=== PATIENT | female | born 1970 | race Caucasian/White ===

== ENCOUNTER → 2020-06-09 12:47 | Outpatient (CLI) | payer OTHER, SELFPAY ==
--- NOTE | ~2020-06-09 | MM_ITS ---
EXAMINATION: MM screening keshia BI w anisa HISTORY: Screening mammogram, family history of breast cancer in her mother. TECHNIQUE: Craniocaudal and mediolateral oblique 3-D tomosynthesis images were obtained and synthetic 2-D images were generated. CAD analysis was submitted and interpreted. COMPARISON: 04/11/2019, 11/09/2017, 10/24/2017, 07/18/2016 BREAST PARENCHYMAL COMPOSITION: There are scattered areas of fibroglandular density. FINDINGS: There is no evidence of suspicious mass, calcification, or architectural distortion to sugg est malignancy in either breast. There has been no suspicious interval change. IMPRESSION: 1. No mammographic evidence of malignancy. 2. Recommend routine screening mammography in one year. BI-RADS Category 1: Negative Reviewed, dictated and finalized at location A. S PULLER
== END ==
PROVIDERS: PCP Physician Assistant; Visit Provider Nurse Practitioner Obstetrics & Gynecology
DX: Z12.31 Encounter for screening mammogram for malignant neoplasm of breast (principal)
CPT/HCPCS: 77063; 77067

== ENCOUNTER → 2020-08-01 14:06 | Outpatient (REF) | payer OTHER, SELFPAY | LOC: ANHLAB 14:06 | PROVIDERS: PCP Physician Assistant; Visit Provider Nurse Practitioner | DX: D22.5 Melanocytic nevi of trunk (principal) | CPT/HCPCS: 88305 ==

== ENCOUNTER → 2021-01-29 13:20 | Outpatient (REF) | payer OTHER, SELFPAY | LOC: ANHLAB 13:20 | PROVIDERS: PCP Physician Assistant; Visit Provider Nurse Practitioner | DX: D49.2 Neoplasm of unspecified behavior of bone, soft tissue, and skin (principal) | CPT/HCPCS: 88305 ==

== ENCOUNTER → 2021-03-13 15:07 | Outpatient (REF) | payer OTHER, SELFPAY | LOC: ANHLAB 15:07 | PROVIDERS: PCP Physician Assistant; Visit Provider Nurse Practitioner | DX: D49.2 Neoplasm of unspecified behavior of bone, soft tissue, and skin (principal) | CPT/HCPCS: 88305 ==

== ENCOUNTER → 2021-07-31 15:08 | Outpatient (REF) | payer OTHER, SELFPAY | LOC: ANHLAB 15:08 | PROVIDERS: PCP Physician Assistant; Visit Provider Nurse Practitioner | DX: D49.2 Neoplasm of unspecified behavior of bone, soft tissue, and skin (principal) | CPT/HCPCS: 88305 ==

== ENCOUNTER → 2021-08-07 11:20 | Outpatient (REF) | payer OTHER, SELFPAY | LOC: ANHLAB 11:20 | PROVIDERS: PCP Physician Assistant; Visit Provider Nurse Practitioner | DX: D49.2 Neoplasm of unspecified behavior of bone, soft tissue, and skin (principal) | CPT/HCPCS: 88305 ==

== ENCOUNTER → 2021-10-02 11:34 | Outpatient (CLI) | payer OTHER, SELFPAY ==
--- NOTE | ~2021-10-02 | MM_ITS ---
EXAMINATION: MM screening keshia BI w anisa HISTORY: Screening mammogram TECHNIQUE: Craniocaudal and mediolateral oblique 3-D tomosynthesis images were obtained and synthetic 2-D images were generated. CAD analysis was submitted and interpreted. COMPARISON: 06/09/2020, 04/20/2019 bilateral screening mammogram examinations BREAST PARENCHYMAL COMPOSITION: There are scattered areas of fibroglandular density. FINDINGS: Biopsy marker is noted on each side. History of prior bilateral benign breast biopsies. Very occasional benign calcifications. There is no evidence of suspicious mass, calcification, or arc hitectural distortion to suggest malignancy in either breast. There has been no suspicious interval c hange. IMPRESSION: 1. No mammographic evidence of malignancy. 2. Recommend routine screening mammography in one year. BI-RADS Category 2: Benign finding(s). Reviewed, dictated and finalized at location A.
== END ==
PROVIDERS: Visit Provider Physician Assistant
DX: Z12.31 Encounter for screening mammogram for malignant neoplasm of breast (principal)
CPT/HCPCS: 77063; 77067

== ENCOUNTER → 2023-01-21 11:19 | Outpatient (CLI) | payer OTHER, SELFPAY ==
--- NOTE | ~2023-01-21 | MM_ITS ---
EXAMINATION: MM screening keshia BI w anisa HISTORY: Screening mammogram TECHNIQUE: Craniocaudal and mediolateral oblique 3-D tomosynthesis images were obtained and synthetic 2-D images were generated. CAD analysis was submitted and interpreted. COMPARISON: October 02, 2021, June 09, 2020, April 20, 2019 bilateral screening mammogram examina tions BREAST PARENCHYMAL COMPOSITION: FINDINGS: Right breast: There is a biopsy marker on the right; history of prior benign right breast biopsy. There is an approximately 6 mm upper outer quadrant right breast mass. Diagnostic right mammogram and right breast ultrasound examination are recommended. Left breast: There is a biopsy marker on the left; history of prior benign left breast biopsy. There is no evidence of suspicious mass, calcification, or architectural distortion to suggest malign alma rosa in the left breast. There has been no suspicious interval change. IMPRESSION: 1. Approximately 6 mm upper outer quadrant posterior right breast mass 2. Diagnostic right mammogram and right breast ultrasound examination are recommended. BI-RADS Category 0: Incomplete: Needs additional imaging evaluation. Reviewed, dictated and finalized at location A. IMPRESSION: 1. Approximately 6 mm upper outer quadrant posterior right breast mass 2. Diagnostic right mammogram and right breast ultrasound examination are recom mended. BI-RADS Category 0: Incomplete: Needs additional imaging evaluation.
== END ==
PROVIDERS: PCP Physician Assistant; Visit Provider Obstetrics & Gynecology
DX: Z12.31 Encounter for screening mammogram for malignant neoplasm of breast (principal); R92.8 Other abnormal and inconclusive findings on diagnostic imaging of breast
CPT/HCPCS: 77063; 77067

== ENCOUNTER 2023-01-29 12:53 | Outpatient (CLI) | payer OTHER, SELFPAY ==
--- NOTE | 2023-01-29 | ECHO_ITS ---
Patient Info Name: Maria A Fisher Age: 52 years : 1970 Gender: Female Ht: 63 in Wt: 165 lbs BSA: 1.85 m2 HR: 79 bpm BP: 109 / 87 mmHg Heart Rhythm: Sinus Rhythm Technical Quality: Good Exam Date: 01/29/2023 1:34 PM Exam Location: [facility] Patient Status: Outpatient Admit Date: 01/29/2023 Staff Ordering Physician: TamirLisa [employer] Supervisor: Rukhsana Padlila RDCS Attending Provider: TamirLisa Exam Type: CA echo doppler color flow Study Info Indications - TAChycardia Complete two-dimensional, color flow and Doppler transthoracic echocardiogram is performed. Summary 1. Complete two-dimensional, color flow and Doppler transthoracic echocardiogram is performed. 2. Left ventricular chamber dimension is normal. 3. Left ventricular systolic function is normal, estimated at 60-65%. 4. The left ventricular diastolic function is grade I diastolic dysfunction. 5. Right ventricular systolic function is normal. 6. Cannot rule out PFO based on color Doppler of interatrial septum. Consider bubble study if clinically indicated. 7. There is trace mitral valve regurgitation. 8. There is trace tricuspid valve regurgitation. Left Ventricle Left ventricular chamber dimension is normal. Left ventricular systolic function is normal, estimated at 60-65%. There is no increased left ventricular wall thickness. The left ventricular diastolic function is grade I diastolic dysfunction. Right Ventricle Right ventricular chamber dimension is normal. Right ventricular systolic function is normal. Left Atria Left atrial chamber dimension is normal. Right Atria Right atrial chamber dimension is normal. Atrial Septum Cannot rule out PFO based on color Doppler of interatrial septum. Consider bubble study if clinically indicated. Aortic Valve The aortic valve is trileaflet. There is no aortic valve stenosis. There is no aortic valve regurgitation. Pulmonic Valve The pulmonic valve is not well visualized. Mitral Valve There is trace mitral valve regurgitation. Tricuspid Valve There is trace tricuspid valve regurgitation. Pericardium/Pleural There is no pericardial effusion. Inferior Vena Cava Normal inferior vena cava with >50% collapse upon inspiration consistent with normal right atrial pressure, 3 mmHg. Aorta The aortic root size at the sinus of Valsalva is normal. Left Ventricular Outflow Tract Name Value Normal LVOT 2D LVOT Diameter 2.0 cm LVOT Doppler LVOT Peak Gradient 2 mmHg LVOT Mean Gradient 1 mmHg LVOT VTI 19 cm LVOT VTI/AV VTI Ratio 0.9 LVOT Stroke Volume 61 ml LVOT CO 3.2 l/min LVOT CI 1.7 l/min/m2 Pulmonic Valve Name Value Normal RVOT Doppler RVOT Peak Gradient 2 mmHg
== END 2023-01-29 12:54 | disposition home or self-care (01) ==
PROVIDERS: PCP Physician Assistant; Visit Provider Physician Assistant
DX: R00.0 Tachycardia, unspecified (principal)
CPT/HCPCS: 93306

== ENCOUNTER → 2023-02-11 08:44 | Outpatient (CLI) | payer OTHER, SELFPAY ==
--- NOTE | ~2023-02-11 | MMUS_ITS ---
EXAMINATION: MM diagnostic keshia RT w anisa, US breast RT limited HISTORY: Approximately 6 mm upper outer posterior right breast mass reported on 01/21/2023 screening ma mmogram TECHNIQUE: Additional 3-D tomosynthesis images of the right breast were performed and synthetic 2-D i mages were generated. CAD analysis was submitted and interpreted. High resolution upper outer and low er outer quadrant right breast ultrasound was performed. COMPARISON: 01/21/2023 bilateral screening mammogram FINDINGS: MAMMOGRAPHIC FINDINGS: Approximately 4 mm circumscribed opacity is suggested in the posterior upper outer left breast (MLO T omosynthesis image 36/87). No suspicious mass, architectural distortion, malignant calcification, skin thickening or retraction is detected. ULTRASOUND: There are several circumscribed hypoechoic or sonolucent areas, the largest situated at 10:00 9 cm fr om the nipple, measuring up to 4 mm, with through transmission posterior enhancement. No suspicious mass or shadowing of either breast is detected. IMPRESSION: 1. Benign findings 2. Routine annual mammographic screening is recommended BI-RADS Category 2: Benign finding(s). Reviewed, dictated and finalized at location A. IMPRESSION: 1. Benign findings 2. Routine annual mammographic screening is recommended BI-RADS Category 2: Benign finding(s).
== END ==
PROVIDERS: PCP Physician Assistant; Visit Provider Obstetrics & Gynecology
DX: R92.8 Other abnormal and inconclusive findings on diagnostic imaging of breast (principal)
CPT/HCPCS: 76642; 77061; 77065; G0279

== ENCOUNTER 2024-04-12 11:59 | Outpatient (CLI) | payer OTHER, SELFPAY ==
--- NOTE | ~2024-04-12 | XR_ITS ---
Left Shoulder Technique: AP and scapular Y views were obtained. Clinical History: Pain Findings: No fracture or dislocation is seen. Osseous alignment is anatomic. The glenohumeral and acr omioclavicular joint spaces are preserved. Soft tissues are unremarkable. Impression: Unremarkable left shoulder radiographs. Reviewed, dictated and finalized at [facility]. Impression: Unremarkable left shoulder radiographs.
== END 2024-04-12 12:00 | disposition home or self-care (01) ==
LOC: ANHIMG 12:02
PROVIDERS: PCP Physician Assistant; Visit Provider Physician Assistant
DX: M25.512 Pain in left shoulder (principal); G89.29 Other chronic pain
CPT/HCPCS: 73030

== ENCOUNTER 2024-04-29 07:32 | Outpatient (CLI) | payer OTHER, SELFPAY ==
--- NOTE | ~2024-04-29 | MM_ITS ---
EXAMINATION: MM screening keshia BI w anisa HISTORY: Screening TECHNIQUE: Craniocaudal and mediolateral oblique 3-D tomosynthesis images were obtained and synthetic 2-D images were generated. CAD analysis was submitted and interpreted. COMPARISON: Comparison to multiple prior studies sequentially, with oldest reviewed study dated 03/24. BREAST PARENCHYMAL COMPOSITION: Not dense: There are scattered areas of fibroglandular density. FINDINGS: There are developing asymmetries in the right breast. The left breast is stable without melisa dence for malignancy. IMPRESSION: 1. Developing right breast asymmetries. 2. Additional mammographic views and possible breast ultrasound are recommended. BI-RADS Category 0: Incomplete: Needs additional imaging evaluation. Reviewed, dictated and finalized at location B. KET PULLER IMPRESSION: 1. Developing right breast asymmetries. 2. Additional mammographic views and possible breast ultrasound are recommended . BI-RADS Category 0: Incomplete: Needs additional imaging evaluation.
== END 2024-04-29 07:33 | disposition home or self-care (01) ==
PROVIDERS: PCP Physician Assistant; Visit Provider Obstetrics & Gynecology
DX: Z12.31 Encounter for screening mammogram for malignant neoplasm of breast (principal); R92.8 Other abnormal and inconclusive findings on diagnostic imaging of breast
CPT/HCPCS: 77063; 77067

== ENCOUNTER 2024-05-18 13:24 | Outpatient (CLI) | payer OTHER, SELFPAY ==
--- NOTE | ~2024-05-18 | MMUS_ITS ---
EXAMINATION: MM diagnostic keshia RT w anisa, US breast RT complete HISTORY: Follow-up right breast mass TECHNIQUE: Additional 3-D tomosynthesis images of the right breast were performed and synthetic 2-D i mages were generated. CAD analysis was submitted and interpreted. High resolution complete right deric st ultrasound was performed. COMPARISON: Comparison to multiple prior studies sequentially, with oldest reviewed study dated 03/24. BREAST PARENCHYMAL COMPOSITION: Not dense: There are scattered areas of fibroglandular density. FINDINGS: MAMMOGRAPHIC FINDINGS: There is a small radiolucent mass in the upper outer quadrant of the right breast, middle third, like ly benign. There are no suspicious calcifications or architectural distortion. ULTRASOUND: Complete US of all 4 quadrants of the right breast/s and retroareolar region was reviewed. At 9:00, 5 cm from the nipple there is an intramammary lymph node measuring 1 cm. At 10:00, 7 cm from the nippl e there is an 8 mm intramammary lymph node. No suspicious masses to suggest malignancy. IMPRESSION: 1. No evidence for malignancy in the right breast. Benign findings. 2. Routine yearly screening mammogram and regular clinical breast examination are recommended. BI-RADS Category 2: Benign finding(s). Reviewed, dictated and finalized at location B. ER PACKER IMPRESSION: 1. No evidence for malignancy in the right breast. Benign findings. 2. Routine yearly screening mammogram and regular clinical breast examination a re recommended. BI-RADS Category 2: Benign finding(s).
== END 2024-05-18 13:25 | disposition home or self-care (01) ==
LOC: ANHIMG 13:25
PROVIDERS: PCP Physician Assistant; Visit Provider Obstetrics & Gynecology
DX: R92.8 Other abnormal and inconclusive findings on diagnostic imaging of breast (principal)
CPT/HCPCS: 76641; 77061; 77065; G0279

== ENCOUNTER 2024-09-07 10:24 | Outpatient (CLI) | payer OTHER, SELFPAY ==
[2024-09-07 11:02] LABS: Alanine Aminotransferase 32 U/L (6-35); Aspartate Amino Transferase 41 U/L (14-36)
--- OUTSIDE RECORDS SUMMARY | 2024-09-07 11:49 | XMS_ITS | Clinical Summary ---
Author Organization [facility] [address] [facility] Address [address] [place] [address] Care Team Providers Care Facility Designer Name Role Phone Lisa Trujillo Primary Care Provider [phone] Allergies No known active allergies Medications Zepbound 7.5 mg/0.5 mL pen injector Active nebivoloL (BYSTOLIC) 5 mg tablet Take 1 tablet (5 mg total) by mouth daily 90 tablet 3 5 Active lisdexamfetamin e (VYVANSE) 20 mg capsule Take 1 capsule (20 mg total) by mouth every morning 30 capsule 5 Active nebivoloL (BYSTOLIC) 5 mg tablet Take 1 tablet (5 mg total) by mouth daily 90 tablet 6 4 09/01/19 25 Discontinu ed(Reorder ) lisdexamfetamin e (VYVANSE) 20 mg capsule Take 1 capsule (20 mg total) by mouth every morning 30 capsule 5 08/13/19 25 Discontinu ed(Reorder ) lisdexamfetamin e (VYVANSE) 20 mg capsule Take 1 capsule (20 mg total) by mouth every morning 30 capsule 5 09/01/19 25 Discontinu ed(Reorder ) Active Problems Problem Noted Date Diagnosed Date BMI 24.0-24.9, adult 08/31/2024 Assessment & Plan (08/31/2024 9:37 AM CDT): Weight/BMI is in healthy range. Continue healthy lifestyle to maintain. Has done great with weight loss. Continue Zepbound per her weight loss provider Chronic left shoulder pain 04/09/2024 Assessment & Plan (04/11/2024 4:44 PM CDT): This is a significant, separately identifiable problem that was evaluated and managed on the same day as the wellness exam Persistent left shoulder pain for the last 7 months. No known injury. Initially felt like maybe she slept on it wrong but continues to feel like she is losing range of motion pain is significant with internal and external rotation. Will obtain an x-ray. Encouraged physical therapy. Encouraged NSAID as tolerated. Follow-up pending physical therapy results Breast cancer screening by mammogram 04/09/2024 Assessment & Plan (04/11/2024 4:44 PM CDT): Mammogram order provided Diastolic dysfunction 02/01/2023 Assessment & Plan (02/01/2023 10:04 PM CDT): This is a significant, separately identifiable problem that was evaluated and managed on the same day as the wellness exam New finding on echo. Patient has had tachycardia. She is responded nicely to Bystolic but still recommend referral to Cardiology for further evaluation based on her age. Referral to [facility] in [place]. Tachycardia 11/05/2022 Assessment & Plan (08/31/2024 9:36 AM CDT): Well-controlled with the Bystolic 5. Refills sent to pharmacy Assessment & Plan (06/03/2023 11:59 AM GENERATING PLANT SUPERINTENDENT): Patient saw Dr. Norris. According to his report no changes were made for treatment plan. She is to continue with the Bystolic 5. Follow-up with him in approximately 6 months. Assessment & Plan (02/01/2023 9:59 PM CDT): Patient has responded well with the Bystolic 5 mg. Heart rate is running in the 80s. Patient physically feels the difference is sleeping better happy with the results. Continue. Encouraged to limit caffeine. Assessment & Plan (12/17/2022 3:09 PM CDT): Patient with tachycardia. Echo will be ordered. Will await results. She feels significantly better on the beta-rajeev which shows control the tachycardia has been helpful. Blood pressure has been stable dropping between 100 110 at home. She denies any headaches dizziness or syncopal type symptoms. Continue with the Bystolic 5 mg daily. Continue to monitor closely. Stressed if she has any chest pain shortness a breath syncopal episode she is immediately go to the ER. Assessment & Plan (12/17/2022 2:59 PM CDT): Patient experiencing tachycardia. Has been present for years. EKG in the office was stable on 11/05. Not experiencing any active chest pain shortness a breath or other symptoms. Trying to avoid caffeine and other stimulants. Vyvanse was stopped so another other medication stimulants on board. NonStimulant Strattera was also discontinued due to nausea. Will check an echo. Start Bystolic 5 mg 1 daily to see if we can get the pulse down without dropping blood pressure too much. Will remain off all ADD medications and follow-up in 2-3 weeks. Encouraged readings at home and bring them in with her to next visit. If she would have any chest pain shortness a breath she is go to the ER. She is in agreement with the plan Assessment & Plan (11/05/2022 8:51 PM CDT): Patient is tachycardic today encouraged her to decrease caffeine. Her thyroid is normal. EKG today was essentially normal other than the tachycardia. Discussed the Vyvanse and contribution to tachycardia as a stimulant. Discussed the underlying possibility that this is more of an anxiety. Discussed referral to Cardiology if desires. She would like to monitor see how it goes if she has any more chest pain shortness a breath with activity or increased symptoms she is to immediately call and or go to the ER. Follow up in a month to reassess. Mixed hyperlipidemia 11/05/2022 Assessment & Plan (04/11/2024 4:43 PM CDT): Encouraged patient to follow low fat/low chol diet like the Mediterranean diet. Increase good fats in the diet. Increase exercise. Monitor labs as needed. Assessment & Plan (11/23/2023 12:45 AM CDT): Encouraged patient to follow low fat/low chol diet like the Mediterranean diet. Increase good fats in the diet. Increase exercise. Monitor labs as needed. Assessment & Plan (02/01/2023 9:58 PM CDT): Encouraged patient to follow low fat/low chol diet like the Mediterranean diet. Increase good fats in the diet. Increase exercise. Monitor labs as needed. Assessment & Plan (11/05/2022 8:51 PM CDT): Encouraged patient to follow low fat/low chol diet like the Mediterranean diet. Increase good fats in the diet. Increase exercise. Monitor labs as needed. Vitamin D deficiency 11/05/2022 Assessment & Plan (11/05/2022 8:52 PM CDT): supplement Colon cancer screening 12/18/2021 Assessment & Plan (08/31/2024 9:36 AM CDT): Due for repeat Cologuard this summer. Order placed Assessment & Plan (03/30/2024 9:13 AM CDT): Weight/BMI is in healthy range. Continue healthy lifestyle to maintain. Assessment & Plan (12/18/2021 8:01 PM CDT): Cologuard order placed. Mucous polyp of cervix 07/21/2019 Attention deficit disorder (ADD) without hyperac tivity 01/02/2019 Assessment & Plan (08/31/2024 9:36 AM CDT): Continue Vyvanse 20. Symptoms are pretty well controlled with the least exposure to stimulant due to her tachycardia Assessment & Plan (04/11/2024 4:43 PM CDT): Continue with the Vyvanse 20 mg as symptoms are stable Assessment & Plan (11/23/2023 12:44 AM CDT): Stable with Vyvanse 20. Refills to pharmacy Assessment & Plan (06/03/2023 11:59 AM GENERATING PLANT SUPERINTENDENT): ADD has been well controlled with the Vyvanse 20 mg. She states it is not quite as good as the 30 but understands keeping it at the lowest possible dose so will continue with it. Refills sent to pharmacy Assessment & Plan (02/01/2023 9:58 PM CDT): Patient is happy with the Vyvanse 20 mg. States significant improvement from the Strattera. Still felt a little better on the higher dose but agreed to hold the dose until evaluated by Cardiology. Assessment & Plan (12/17/2022 3:10 PM CDT): Being off ADD medication patient has noticed forgetfulness as well as difficulty focusing. She is not as productive at work. She notes in retrospect the Strattera probably was helping with ADD symptoms but the nausea was too much. She is frustrated with out being on medication and would like to restart Vyvanse. Reviewed risks benefits alternatives side effects and proper use. Reviewed if she would note increased chest pain if her heart rate was to increase she is to stop the Vyvanse immediately. Will await echo results and if there is any concerns will refer to Cardiology. She is in agreement with the plan Assessment & Plan (12/17/2022 3:00 PM CDT): Patient has ADD. Symptom lynch has done great on Vyvanse 30 but was experiencing some chest pressure as well as tachycardia. Have discontinued this stimulant as well as nonstimulant Strattera. Will start Bystolic and follow-up in 4 weeks to reassess. Assessment & Plan (11/05/2022 8:50 PM CDT): Patient's ADD has been very well controlled in the Vyvanse 30 mg. She has been on it literally for years. She comes in tachycardic today. Do not have a great reason for it but has been on a stimulant. Discussed making a transition to Strattera as a non stimulant ADD medication. Reviewed risks benefits alternatives side effects and proper use. Reviewed it may feel different than the Vyvanse but can still have great results. She is hesitant but willing to try. 80 mg capsules sent. Follow-up in about 4 weeks and reassess at that time. Assessment & Plan (10/01/2022 11:23 PM CDT): Stable with Vyvanse 30. Refills to pharmacy Assessment & Plan (05/24/2022 9:22 PM GENERATING PLANT SUPERINTENDENT): Patient's symptoms are well controlled with Vyvanse 30. Refills available at pharmacy. Encouraged follow-up about every 4 months. Assessment & Plan (12/18/2021 8:00 PM CDT): Stable with Vyvanse 30. Continue to follow-up every 4 months for and may call for refills in between those visits. Assessment & Plan (04/08/2021 8:24 PM CDT): Patient has been doing well on the Vyvanse 30 and Lexapro 20.. The side effects from the medicine but she is happy with where she is right now so at this point will discontinue to monitor symptoms increase may consider rechecking blood work and or making a change in her medications. Assessment & Plan (01/07/2021 6:45 PM CDT): Stable. Continue Vyvanse 30 mg. Assessment & Plan (12/10/2020 7:25 PM CDT): Continue Vyvanse 30mg Assessment & Plan (06/04/2020 12:28 AM GENERATING PLANT SUPERINTENDENT): Stable with lexapro and vyvanse. Refills to pharmacy Assessment & Plan (02/20/2020 8:16 PM CDT): Continue Vyvanse Assessment & Plan (08/26/2019 9:38 AM GENERATING PLANT SUPERINTENDENT): Stable with the Vyvanse 30mg Just filled. Call for refills as needed Assessment & Plan (07/22/2019 8:50 AM GENERATING PLANT SUPERINTENDENT): This is a significant, separately identifiable problem that was evaluated and managed on the same day as the wellness exam Continue with the Vyvanse 30mg daily. Encouarged daily Lexapro and will reassess in 4-6 weeks. Assessment & Plan (06/10/2019 9:04 AM GENERATING PLANT SUPERINTENDENT): Stable with the Vyvanse 30mg. See if Lexapro addition stabilizes more SCC (squamous cell carcinoma) 01/02/2019 Overview (06/10/2019): LE removed 2018 Multiple excisions. Follows q [address] Miranda Resolved Problems Problem Noted Date Diagnosed Date Resolved Date Annual physical exam 04/09/2024 025 Assessment & Plan (04/11/2024 4:43 PM CDT): Encouraged healthy lifestyle, good nutrition and exercise. Encouraged Calcium and Vitamin D and weight bearing exercise for bone health. Reviewed immunizations Reviewed age appropirate screenings. Diabetes mellitus screening 11/23/2023 04/11/2024 Assessment & Plan (11/23/2023 12:45 AM CDT): Check labs BMI 28.0-28.9,adult 06/03/2023 11/20/19 24 Assessment & Plan (06/03/2023 9:14 AM GENERATING PLANT SUPERINTENDENT): Weight/BMI is in healthy range. Continue healthy lifestyle to maintain. Annual physical exam 02/01/2023 023 Assessment & Plan (02/01/2023 10:06 PM CDT): Encouraged healthy lifestyle, good nutrition and exercise. Encouraged Calcium and Vitamin D and weight bearing exercise for bone health. Reviewed immunizations Reviewed age appropirate screenings. Obesity (BMI 30-39.9) 01/30/20232022 Assessment & Plan (01/30/2023 3:04 PM CDT): Discussed the patient's BMI. The BMI is above average. BMI management plan is completed. BMI Follow-up includes: nutrition counseling, exercise counseling and education provided. BMI 31.0-31.9,adult 01/30/2023 06/03/20 Assessment & Plan (01/30/2023 3:03 PM CDT): Discussed the patient's BMI. The BMI is above average. BMI management plan is completed. BMI Follow-up includes: nutrition counseling, exercise counseling and education provided. Obesity (BMI 30-39.9) 12/17/20222022 Assessment & Plan (12/17/2022 1:07 PM CDT): Discussed the patient's BMI. The BMI is above average. BMI management plan is completed. BMI Follow-up includes: nutrition counseling, exercise counseling and education provided. BMI 30.0-30.9,adult 12/17/2022 12/18/19 Assessment & Plan (12/17/2022 1:07 PM CDT): Discussed the patient's BMI. The BMI is above average. BMI management plan is completed. BMI Follow-up includes: nutrition counseling, exercise counseling and education provided. Obesity (BMI 30.0-34.9) 12/17/202201/21 Assessment & Plan (12/17/2022 2:59 PM CDT): Discussed the patient's BMI. The BMI is above average. BMI management plan is completed. BMI Follow-up includes: nutrition counseling, exercise counseling and education provided. BMI 30.0-30.9,adult 12/17/2022 01/31/20 Assessment & Plan (12/17/2022 3:06 PM CDT): Discussed the patient's BMI. The BMI is above average. BMI management plan is completed. BMI Follow-up includes: nutrition counseling, exercise counseling and education provided. Assessment & Plan (12/17/2022 2:59 PM CDT): Discussed the patient's BMI. The BMI is above average. BMI management plan is completed. BMI Follow-up includes: nutrition counseling, exercise counseling and education provided. Obesity (BMI 30-39.9) 12/03/20222022 Assessment & Plan (12/03/2022 11:40 AM CDT): Discussed the patient's BMI. The BMI is above average. BMI management plan is completed. BMI Follow-up includes: nutrition counseling, exercise counseling and education provided. BMI 30.0-30.9,adult 12/03/2022 12/18/19 Assessment & Plan (12/03/2022 11:40 AM CDT): Discussed the patient's BMI. The BMI is above average. BMI management plan is completed. BMI Follow-up includes: nutrition counseling, exercise counseling and education provided. Obesity (BMI 30-39.9) 11/05/20222022 Assessment & Plan (11/05/2022 8:50 PM CDT): Discussed the patient's BMI. The BMI is above average. BMI management plan is completed. BMI Follow-up includes: nutrition counseling, exercise counseling and education provided. Continue with her weight loss programming with utilizing my fitness pal watching calories protein and continuing activity. BMI 31.0-31.9,adult 11/05/2022 12/04/19 Assessment & Plan (11/05/2022 8:16 AM CDT): Discussed the patient's BMI. The BMI is above average. BMI management plan is completed. BMI Follow-up includes: nutrition counseling, exercise counseling and education provided. Obesity (BMI 30-39.9) 10/01/20222022 Assessment & Plan (10/01/2022 1:19 PM CDT): Discussed the patient's BMI. The BMI is above average. BMI management plan is completed. BMI Follow-up includes: nutrition counseling, exercise counseling and education provided. BMI 31.0-31.9,adult 10/01/2022 11/06/19 23 Assessment & Plan (10/01/2022 11:25 PM CDT): Discussed the patient's BMI. The BMI is above average. BMI management plan is completed. BMI Follow-up includes: nutrition counseling, exercise counseling and education provided. Discussed weight management issues for approximately 15 minutes. Encouraged to log all food/drink/intake to determine daily caloric intake. Reviewed 3500 calories = 1# of weight so have to register a deficit to lose. Discussed obtaining this by decreasing daily caloric intake and or increasing exercise. Discussed decreasing carbs. Maintaining enough protein. Monitor/be aware of serving size. Increase water. Avoid sugar sweetened drinks. Discussed Wegovy including risks benefits alternatives side effects and proper use. Obesity (BMI 30-39.9) 05/23/20222022 Assessment & Plan (05/23/2022 2:59 PM GENERATING PLANT SUPERINTENDENT): Obesity is unchanged. Discussed the patient's BMI. The BMI is above average. BMI management plan is completed. BMI Follow-up includes: nutrition counseling, exercise counseling and education provided. BMI 31.0-31.9,adult 05/23/2022 10/02/19 23 Assessment & Plan (05/23/2022 3:00 PM GENERATING PLANT SUPERINTENDENT): Obesity is unchanged. Discussed the patient's BMI. The BMI is above average. BMI management plan is completed. BMI Follow-up includes: nutrition counseling, exercise counseling and education provided. Annual physical exam 12/18/2021 023 Assessment & Plan (12/18/2021 8:00 PM CDT): Encouraged healthy lifestyle, good nutrition and exercise. Encouraged Calcium and Vitamin D and weight bearing exercise for bone health. Reviewed immunizations Reviewed age appropirate screenings. Obesity (BMI 30-39.9) 12/18/20212021 Assessment & Plan (12/18/2021 10:57 AM CDT): Obesity is unchanged. Discussed the patient's BMI. The BMI is above average. BMI management plan is completed. BMI Follow-up includes: nutrition counseling, exercise counseling and education provided. BMI 30.0-30.9,adult 12/18/2021 05/23/20 Assessment & Plan (12/18/2021 10:57 AM CDT): Obesity is unchanged. Discussed the patient's BMI. The BMI is above average. BMI management plan is completed. BMI Follow-up includes: nutrition counseling, exercise counseling and education provided. Diabetes mellitus screening 12/18/2021 02/01/2023 Assessment & Plan (10/01/2022 11:24 PM CDT): Check labs Assessment & Plan (12/18/2021 8:01 PM CDT): Check labs. Lipid screening 12/18/2021 11/05/2022 Assessment & Plan (10/01/2022 11:24 PM CDT): Check labs Assessment & Plan (12/18/2021 8:01 PM CDT): Check labs Fever 06/29/2021 04/11/2024 Assessment & Plan (06/29/2021 8:53 PM GENERATING PLANT SUPERINTENDENT): Patient to presume positive COVID/FLU until results are available and plan to self isolate for up to 10 days from the onset of sxs. Check COVID/FLU test thru [facility] collection site in [place]. If positive COVID, complete 10 day quarantine and consider monoclonal antibodies based on risk factors. If positive FLU, complete 5 day quarantine and be fever free for 24 hours without meds and may consider antiviral based on timing and risk factors. If negative, treat sxs and observe. Treat sxs with Tylenol, Cough/cold medication otc and add VitD 5,000IU daily and Zinc 50mg daily. Monitor sxs and call or go to the ER if has any of the following: --trouble breathing --persistent pain or pressure in the chest --new confusion --inability to wake or stay awake -- bluish lips or face If patient has been in close contact with anyone, they should be notified and instructed to quarantine per CDC guidelines for 14 days after last exposure to the positive COVID patient and monitor closely for symptoms of COVID. If they appear they should be tested. Close contact includes: --You were within 6 feet of someone who has COVID-19 for a total of 15 minutes or more --You provided care at home to someone who is sick with COVID-19 --You had direct physical contact with the person (hugged or kissed them) --You shared eating or drinking utensils --They sneezed, coughed, or somehow got respiratory droplets on you Additional Steps to avoid exposure/spread include: Avoid crowded places where close contact with others may occur, such as shopping centers, movie theaters, dormitories, or stadiums. Avoid transit where close contact with others may occur, such as planes, trains, and buses. Maintain a distance of approximately 6 feet from other people whenever possible (spacing out if you are in a line, leaving 2 seats in between others at a waiting room when possible). Wash your hands with soap and water often. If needed, use a hand ror engineer that contains at least 60% alcohol. Clean and disinfect frequently touched surfaces such as tables, doorknobs, countertops, etc daily. Avoid touching your eyes, nose, and mouth when possible. Onychomycosis 04/08/2021 04/11/2024 Assessment & Plan (04/08/2021 8:30 PM CDT): Patient has thickened nails that looks most consistent with onychomycosis. Discussed referral to learning support services director for toes nail sample she declines at this point. Discussed treatment options including Lamisil versus his topicals versus monitoring. Reviewed that there is no guarantee any bees will work and help the result is a very slow process. She is interested in the [facility] topical solution. She is to apply it daily and may take up to a year to see any changes. She voices understanding. BMI 28.0-28.9,adult 04/03/2021 12/19/19 Assessment & Plan (04/03/2021 4:11 PM CDT): Weight/BMI is in healthy range. Continue healthy lifestyle to maintain. BMI 28.0-28.9,adult 01/02/2021 04/03/20 Assessment & Plan (01/02/2021 3:34 PM CDT): Weight/BMI is in healthy range. Continue healthy lifestyle to maintain. Annual physical exam 12/10/2020 021 Assessment & Plan (12/10/2020 7:26 PM CDT): Encouraged healthy lifestyle, good nutrition and exercise. Encouraged Calcium and Vitamin D and weight bearing exercise for bone health. Reviewed immunizations Reviewed age appropirate screenings. Lipid screening 12/10/2020 01/07/2021 Assessment & Plan (12/10/2020 7:27 PM CDT): Encouraged patient to follow fat/low chol diet like the Mediterranean diet. Increase good fats in the diet. Increase exercise. Monitor labs as needed. Diabetes mellitus screening 12/10/2020 01/07/2021 Assessment & Plan (12/10/2020 7:27 PM CDT): Check labs Fatigue 12/10/2020 04/11/2024 Assessment & Plan (11/23/2023 12:44 AM CDT): Probably multifactorial. Check labs and followup to re-evaluate Assessment & Plan (10/01/2022 11:24 PM CDT): Probably multifactorial. Check labs and followup to re-evaluate Assessment & Plan (12/18/2021 8:00 PM CDT): Probably multifactorial. Check labs and followup to re-evaluate Assessment & Plan (04/08/2021 8:24 PM CDT): Probably multifactorial. Check labs and followup to re-evaluate She does had labs done so discussed rechecking them versus being patient and wait an had we have decided to just going to monitor and see how she does. Encourage good sleep habits. Assessment & Plan (12/10/2020 7:27 PM CDT): Probably multifactorial. Check labs and followup to re-evaluate BMI 29.0-29.9,adult 11/27/2020 01/03/20 Assessment & Plan (12/10/2020 7:26 PM CDT): Weight/BMI is in healthy range. Continue healthy lifestyle to maintain. BMI 28.0-28.9,adult 05/29/2020 11/28/19 21 Assessment & Plan (06/04/2020 12:28 AM GENERATING PLANT SUPERINTENDENT): Weight/BMI is in healthy range. Continue healthy lifestyle to maintain. BMI 26.0-26.9,adult 01/10/2020 05/29/20 Assessment & Plan (01/10/2020 4:33 PM CDT): Continue healthy lifestyle to continue healthy weight BMI 25.0-25.9,adult 08/26/2019 09/01/19 25 Assessment & Plan (04/11/2024 4:43 PM CDT): Weight/BMI is in healthy range. Continue healthy lifestyle to maintain. Assessment & Plan (08/26/2019 8:30 AM GENERATING PLANT SUPERINTENDENT): Weight/BMI is in healthy range. Continue healthy lifestyle to maintain. Annual physical exam 07/22/2019 020 Assessment & Plan (07/22/2019 8:49 AM GENERATING PLANT SUPERINTENDENT): Encouraged healthy lifestyle, good nutrition and exercise. Encouraged Calcium and Vitamin D and weight bearing exercise for bone health. Reviewed immunizations Reviewed age appropirate screenings. Oth abn and inconclusive fin dings on dx imaging of breast 07/21/2019 12/18/2021 BMI 26.0-26.9,adult 06/10/2019 03/30/20 24 Assessment & Plan (11/20/2023 9:08 AM CDT): Weight/BMI is in healthy range. Continue healthy lifestyle to maintain. Assessment & Plan (07/22/2019 8:50 AM GENERATING PLANT SUPERINTENDENT): Weight/BMI is in healthy range. Continue healthy lifestyle to maintain. Assessment & Plan (06/10/2019 8:31 AM GENERATING PLANT SUPERINTENDENT): Weight/BMI is in healthy range. Continue healthy lifestyle to maintain. Anxiety 06/10/2019 12/17/2022 Assessment & Plan (12/18/2021 8:00 PM CDT): Patient states her anxiety has settled down and she cold turkey. The Lexapro with minimal side effects. Will go ahead and monitor but if her symptoms increase may need to start a low-dose of the Lexapro back up. She is in agreement with the plan Assessment & Plan (04/08/2021 8:24 PM CDT): See ADD Assessment & Plan (01/07/2021 6:44 PM CDT): Stable. Continue Lexapro 20 mg. Assessment & Plan (12/10/2020 7:25 PM CDT): This is a significant, separately identifiable problem that was evaluated and managed on the same day as the wellness exam On Vyvanse 30 and Lexapro 10. Increased anxiety. Feeling overwhelmed. Increase lexapro to 20mg and f.u in 4 weeks. Assessment & Plan (06/04/2020 12:28 AM GENERATING PLANT SUPERINTENDENT): Stable with lexapro and vyvanse. Refills to pharmacy Assessment & Plan (02/20/2020 8:16 PM CDT): Continue Lexapro Assessment & Plan (08/26/2019 9:38 AM GENERATING PLANT SUPERINTENDENT): Improved with the addition of the LExapro. Continue the same dose. Refills to pharmacy Assessment & Plan (07/22/2019 8:49 AM GENERATING PLANT SUPERINTENDENT): This is a significant, separately identifiable problem that was evaluated and managed on the same day as the wellness exam Take Lexapro hs and try to do consistently for 4-6 weeks/until followup. Will reassess at that time. Assessment & Plan (06/10/2019 9:04 AM GENERATING PLANT SUPERINTENDENT): Discussed options including starting SSRI. Reviewed risks, benefit, alternatives, side effects and proper use. Start lexapro 10mg one daily. F.u 6 weeks to reassess Other fatigue 06/10/2019 12/18/2021 Assessment & Plan (06/10/2019 9:05 AM GENERATING PLANT SUPERINTENDENT): Probably multifactorial. Check labs and followup to re-evaluate Will see if he trends toward hypoglycemia with her A1c. 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); Tachycardia; Colon cancer screening; BMI 24.0-24.9, adult from Last 3 Months Immunizations Immunization Administration Dates Next Due Influenza LAIV (Nasal) 06/03/2023(Deferred: Michelle ent Refused) Influenza, Unspecified 06/03/2023(Deferr ed: Patient Refused),07/24/2022(Deferred: Patient Refused),07/24/2021(Deferred: Patient Refused),07/24/2021(Deferred: Patient Refused),05/23/2020(Deferred: Patient Refused),07/22/2019(Deferred: Patient Refused),07/22/2019(Deferred: Patient Refused),03/23/2018(Deferred: Patient Refused) Moderna SARS-CoV-2 Monovalen t Vaccination (12+ YRS) 11/02/2020,10/05/2020 Surgical History Surgery Date Site/Laterality Comments EYE SURGERY Medical History Medical History Date Comments ADHD (attention deficit hyperactivity disorder) Family History Medical History Relation Name Comments Diabetes Father Cancer Maternal Grandfather Cancer Maternal Grandmother Breast cancer Mother Hypertension Mother Skin cancer Mother Arthritis Paternal Grandfather Breast cancer Paternal Grandmother Relation Name Status Comments Father Maternal Grandfather Maternal Grandmother Mother Alive Paternal Grandfather Paternal Grandmother Social History Tobacco Use Types Packs/Day Years Used Date Smoking Tobacco: Never Smokeless Tobacco: Never Tobacco Cessation:Counseling Given: Not Answered Alcohol Use Standard Drinks/Week Comments Never 0 (1 standard drink = 0.6 oz pur e alcohol) AUDIT-C Answer Date Recorded Q1: How often do you have a drink containing alcohol? Never 08/31/2024 Q2: How many drinks containi ng alcohol do you have on a typical day when you are drinking? 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 file Not on file Not on file Obstetrics History Last Filed Vital Signs Vital Sign Reading Time Taken Comments Blood Pressure 118/72 08/31/2024 8:59 AM CDT Pulse 93 08/31/2024 8:59 AM CDT Temperature 36.3 C (97.4 F) 08/31/2024 8:59 AM CDT Respiratory Rate 16 11/20/2023 9:04 AM CDT Oxygen Saturation 98% 08/31/2024 8:59 AM CDT Inhaled Oxygen Concentration - - Weight 62.6 kg (138 lb) 08/31/2024 8:59 AM CDT Height 160 cm (5' 3 ) 08/31/2024 8:59 AM CDT Body Mass Index 24.45 08/31/2024 8:59 AM CDT Plan of Treatment Health Maintenance Due Date Last Done Comments Cervical Cancer Screening 1972 Hepatitis C Screening 1972 DTaP/Tdap/Td Vaccine (1 - Tdap) 08/22/1983 Hepatitis B Screening 1990 Zoster Vaccine (1 of 2) 2022 Covid-19 Vaccine (3 - season) 2024 11/02/2020, 10/05/2020 Influenza Vaccine (#1) 2024 Postp oned from 02/22/2024 (Patient declined, but will receive in the future) Colon Cancer Screening-DNA Stool 01/13/2025 01/13/2022 Regular Well Visit/Exam 18-64 03/30/2025 03/30/2024, 01/30/2023, 12/18/2021, Additional history exists Breast Cancer Screening-Mammogram 05/19/2025 05/19/2024, 04/29/2024, 04/29/2024, Additional history exists Depression Screening 08/31/2025 08/31/2024, 03/30/2024, 11/20/2023, Additional history exists Pneumococcal vaccine <65 Aged Out No longer eligible based on patient's age to complete this topic Procedures Procedure Name Priority Date/Time Associated Diagnosis Comments SCREENING MAMMOGRAM BILATERAL W LELO Schedule Routine, Read Routine (OP Routine) 05/19/2024 10:16 AM GENERATING PLANT SUPERINTENDENT Breast cancer screening by mammogram STOOL DNA COLOGUARD Routine 01/13/2022 10:30 AM CDT Colon cancer screening from Last 3 Months or Most Recently Relevant to Health Maintenance Results * Screening Mammogram Bilateral W Lelo (05/19/2024 10:16 AM GENERATING PLANT SUPERINTENDENT) Anatomical Region Laterality Modality Breast Bilateral Mammography Lisa READ IM MAMMO PROCEDURES Final Result * Stool DNA - Cologuard (01/13/2022 10:30 AM CDT) Stool DNA - Cologuard Negative Negative [employer] (CLIA #:[id number]) Comment: NEGATIVE TEST RESULT. A negative Cologuard result indicates a low likelihood that a colorectal cancer (CRC) or advanced adenoma (adenomatous polyps with more advanced pre-malignant features) is present. The chance that a person with a negative Cologuard test has a colorectal cancer is less than 1 in 1500 (negative predictive value >99.9%) or has an advanced adenoma is less than 5.3% (negative predictive value 94.7%). These data are based on a prospective cross-sectional study of 10,000 individuals at average risk for colorectal cancer who were screened with both Cologuard and colonoscopy. (Meli Petit al, N Engl J Med 2014;370(14):5697-5991) The normal value (reference range) for this assay is negative. COLOGUARD RE-SCREENING RECOMMENDATION: Periodic colorectal cancer screening is an important part of preventive healthcare for asymptomatic individuals at average risk for colorectal cancer. Following a negative Cologuard result, the [place] Cancer Society and U.S. Multi-Society Task Force screening guidelines recommend a Cologuard re-screening interval of 3 years. References: [place] [employer] Guideline for Colorectal Cancer Screening: https://www.cancer.org/cancer/fcrhd-jtxxsd-hrvmtr/zlxlpzuqo-hyxiksoqm-rrdpelv/ac s-rec ommendations.html.; Riccardo DK, Jennifer CR, Neal AmbrizK, Colorectal Cancer Screening: Recommendations for Physicians and Patients from the U.S. Multi-Society Task Force on Colorectal Cancer Screening , Am J Gastroenterology 2017; 112:8415-9468. TEST DESCRIPTION: Composite algorithmic analysis of stool DNA-biomarkers with hemoglobin immunoassay. Quantitative values of individual biomarkers are not reportable and are not associated with individual biomarker result reference ranges. Cologuard is intended for colorectal cancer screening of adults of either sex, 45 years or older, who are at average-risk for colorectal cancer (CRC). Cologuard has been approved for use by the U.S. FDA. The performance of Cologuard was established in a cross sectional study of average-risk adults aged 50-84. Cologuard performance in patients ages 45 to 49 years was estimated by sub-group analysis of near-age groups. Colonoscopies performed for a positive result may find as the most clinically significant lesion: colorectal cancer [4.0%], advanced adenoma (including sessile serrated polyps greater than or equal to 1cm diameter) [20%] or non- advanced adenoma [31%]; or no colorectal neoplasia [45%]. These estimates are derived from a prospective cross-sectional screening study of 10,000 individuals at average risk for colorectal cancer who were screened with both Cologuard and colonoscopy. (Meli Petit al, N Engl J Med 2014;370(14):1004-2934.) Cologuard may produce a false negative or false positive result (no colorectal cancer or precancerous polyp present at colonoscopy follow up). A negative Cologuard test result does not guarantee the absence of CRC or advanced adenoma (pre-cancer). The current Cologuard screening interval is every 3 years. ([place] Cancer Society and U.S. Multi-Society Task Force). Cologuard performance data in a 10,000 patient pivotal study using colonoscopy as the reference method can be accessed at the following location: www.[employer].com/results. Additional description of the Cologuard test process, warnings and precautions can be found at www.cologuard.com. Stool 01/13/2022 10:3 0 AM CDT 01/15/2022 7:09 PM CDT Lisa READ LAB BODY FLUIDS AND STOOLS ORDERABLES Final Result [email or web address] (CLIA #:[id number]) [place] [address] from Last 3 Months or Most Recently Relevant to Health Maintenance Insurance [facility] [id number] [facility] [id number] Care Teams Facility Designer Relationship Specialty Start Date End Date Lisa Trujillo PA [address] [facility] [address] [place] [address] PCP - General Internal Medicine 11/10/18
--- OUTSIDE RECORDS SUMMARY | 2024-09-07 11:49 | XMS_ITS | Encounter Summary ---
Author Organization [facility] Care Team Providers Care Appraiser [employer]ats [employer] Name Role Phone Lisa Trujillo Primary Care Provider [phone]- [phone] Encounter Details Date Type Department Care Team (Latest Contact Info) Description 06/01/2018 Orders Only [facility] Provider, MD Jacob [address] [place] [id number] Social History Tobacco Use Types Packs/Day Years Used Date Smoking Tobacco: Never Assessed Comments Unknown Sex and Gender Information Value Date Recorded Sex Assigned at Not on file Legal Sex Female 11:48 AM TECHNOLOGY ENGINEER Gender Identity Not on file Sexual Orientation Not on file documented as of this encounter Plan of Treatment Not on file documented as of this encounter Procedures Procedure Name Priority Date/Time Associated Diagnosis Comments SCAN - PATHOLOGY 06/03/2018 12:0 0 AM TECHNOLOGY ENGINEER documented in this encounter Results * SCAN - PATHOLOGY (06/03/2018 12:00 AM TECHNOLOGY ENGINEER) Narrative 06/03/2018 12:00 AM TECHNOLOGY ENGINEER Ordered by an unspecified provider. Historical Provider Final Res ult documented in this encounter Visit Diagnoses Not on filedocumented in this encounter Additional Health Concerns Infection Onset Date Last Indicated Resolved Time COVID: Suspected 06/29/2021 06/29/2021 06/30/2021 7:45 AM TECHNOLOGY ENGINEER COVID19 06/29/2021 06/29/2021 07/09/2021 3:06 AM TECHNOLOGY ENGINEER COVID: Recovered Comment:Added based on recent COVID infection. 07/09/2021 07/11/202111/06/2021 3:05 AM C DT documented as of this encounter Care Teams Appraiser [employer] Marine Relationship Specialty Start Date End Date Lisa Trujillo PA [address] [address] PCP - General Internal Medicine 11/10/18 documented as of this encounter
--- OUTSIDE RECORDS SUMMARY | 2024-09-07 11:49 | XMS_ITS | Referral Summary ---
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 Referral to [facility] Cardiology in [place]. Tachycardia 11/05/2022 Assessment & Plan (08/31/2024 9:36 AM CDT): Well-controlled with the Eulalioolic 5. Refills sent to pharmacy Assessment & Plan (06/03/2023 11:59 AM LICENSED MIDWIFE): Patient saw Dr. Norris. According to his [...] pharmacy Assessment & Plan (06/03/2023 11:59 AM LICENSED MIDWIFE): ADD has been well controlled with the [...] 3:00 PM CDT): Patient has ADD. Symptom ylnch has done great on Vyvanse 30 but [...] pharmacy Assessment & Plan (05/24/2022 9:22 PM LICENSED MIDWIFE): Patient's symptoms are well controlled with Vyvanse [...] 30mg Assessment & Plan (06/04/2020 12:28 AM LICENSED MIDWIFE): Stable with lexapro and vyvanse. Refills to pharmacy Assessment & Plan (02/20/2020 8:16 PM CDT): Continue Vyvanse Assessment & Plan (08/26/2019 9:38 AM LICENSED MIDWIFE): Stable with the Vyvanse 30mg Just filled. Call for refills as needed Assessment & Plan (07/22/2019 8:50 AM LICENSED MIDWIFE): This is a significant, separately identifiable problem that was evaluated and managed on the same day as the wellness exam Continue with the Vyvanse 30mg daily. Encouarged daily Lexapro and will reassess in 4-6 weeks. Assessment & Plan (06/10/2019 9:04 AM LICENSED MIDWIFE): Stable with the Vyvanse 30mg. See if [...] 24 Assessment & Plan (06/03/2023 9:14 AM LICENSED MIDWIFE): Weight/BMI is in healthy range. Continue healthy [...] 05/23/20222022 Assessment & Plan (05/23/2022 2:59 PM LICENSED MIDWIFE): Obesity is unchanged. Discussed the patient's BMI. The BMI is above average. BMI management plan is completed. BMI Follow-up includes: nutrition counseling, exercise counseling and education provided. BMI 31.0-31.9,adult 05/23/2022 10/02/19 23 Assessment & Plan (05/23/2022 3:00 PM LICENSED MIDWIFE): Obesity is unchanged. Discussed the patient's BMI. [...] 04/11/2024 Assessment & Plan (06/29/2021 8:53 PM LICENSED MIDWIFE): Patient to presume positive COVID/FLU until results are available and plan to self isolate for up to 10 days from the onset of sxs. Check COVID/FLU test thru [facility] collection site in [place]. If positive COVID, complete 10 day quarantine [...] water often. If needed, use a hand nozzle worker that contains at least 60% alcohol. Clean and disinfect frequently touched surfaces such as tables, doorknobs, countertops, etc daily. Avoid touching your eyes, nose, and mouth when possible. Onychomycosis 04/08/2021 04/11/2024 Assessment & Plan (04/08/2021 8:30 PM CDT): Patient has thickened nails that looks most consistent with onychomycosis. Discussed referral to banquet set up person for toes nail sample she declines at this point. Discussed treatment options including Lamisil versus his topicals versus monitoring. Reviewed that there is no guarantee any bees will work and help the result is a very slow process. She is interested in the Penla topical solution. She is to apply it daily and may take up to a year to see any changes. She voices understanding. BMI 28.0-28.9,adult 04/03/2021 12/19/19 22 Assessment & Plan (04/03/2021 4:11 PM CDT): Weight/BMI is in healthy range. Continue healthy lifestyle to maintain. BMI 28.0-28.9,adult 01/02/2021 04/03/20 21 Assessment & Plan (01/02/2021 3:34 PM CDT): [...] followup to re-evaluate BMI 29.0-29.9,adult 11/27/2020 01/03/20 21 Assessment & Plan (12/10/2020 7:26 PM CDT): Weight/BMI is in healthy range. Continue healthy lifestyle to maintain. BMI 28.0-28.9,adult 05/29/2020 11/28/19 21 Assessment & Plan (06/04/2020 12:28 AM LICENSED MIDWIFE): Weight/BMI is in healthy range. Continue healthy lifestyle to maintain. BMI 26.0-26.9,adult 01/10/2020 05/29/20 20 Assessment & Plan (01/10/2020 4:33 PM CDT): Continue healthy lifestyle to continue healthy weight BMI 25.0-25.9,adult 08/26/2019 09/01/19 25 Assessment & Plan (04/11/2024 4:43 PM CDT): Weight/BMI is in healthy range. Continue healthy lifestyle to maintain. Assessment & Plan (08/26/2019 8:30 AM LICENSED MIDWIFE): Weight/BMI is in healthy range. Continue healthy lifestyle to maintain. Annual physical exam 07/22/2019 020 Assessment & Plan (07/22/2019 8:49 AM LICENSED MIDWIFE): Encouraged healthy lifestyle, good nutrition and exercise. [...] maintain. Assessment & Plan (07/22/2019 8:50 AM LICENSED MIDWIFE): Weight/BMI is in healthy range. Continue healthy lifestyle to maintain. Assessment & Plan (06/10/2019 8:31 AM LICENSED MIDWIFE): Weight/BMI is in healthy range. Continue healthy [...] weeks. Assessment & Plan (06/04/2020 12:28 AM LICENSED MIDWIFE): Stable with lexapro and vyvanse. Refills to pharmacy Assessment & Plan (02/20/2020 8:16 PM CDT): Continue Lexapro Assessment & Plan (08/26/2019 9:38 AM LICENSED MIDWIFE): Improved with the addition of the LExapro. Continue the same dose. Refills to pharmacy Assessment & Plan (07/22/2019 8:49 AM LICENSED MIDWIFE): This is a significant, separately identifiable problem that was evaluated and managed on the same day as the wellness exam Take Lexapro hs and try to do consistently for 4-6 weeks/until followup. Will reassess at that time. Assessment & Plan (06/10/2019 9:04 AM LICENSED MIDWIFE): Discussed options including starting SSRI. Reviewed risks, benefit, alternatives, side effects and proper use. Start lexapro 10mg one daily. F.u 6 weeks to reassess Other fatigue 06/10/2019 12/18/2021 Assessment & Plan (06/10/2019 9:05 AM LICENSED MIDWIFE): Probably multifactorial. Check labs and followup to re-evaluate Will see if he trends toward hypoglycemia with her A1c. Immunizations Immunization Administration Dates Next Due Influenza LAIV (Nasal) 06/03/2023(Deferred: Michelle ent Refused) Influenza, Unspecified 06/03/2023(Deferr ed: Patient Refused),07/24/2022(Deferred: Patient Refused),07/24/2021(Deferred: Patient Refused),07/24/2021(Deferred: Patient Refused),05/23/2020(Deferred: Patient Refused),07/22/2019(Deferred: Patient Refused),07/22/2019(Deferred: Patient Refused),03/23/2018(Deferred: Patient Refused) Moderna SARS-CoV-2 Monovalen t Vaccination (12+ YRS) 11/02/2020,10/05/2020 Social History Tobacco Use Types Packs/Day Years [...] on file Legal Sex Female 11:48 AM LICENSED MIDWIFE Gender Identity Not on file Sexual Orientation Not on file 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 file Not on file Not on file Last Filed Vital Signs Vital Sign Reading [...] 08/31/2024 8:59 AM CDT Plan of Treatment Not on file Procedures Procedure Name Priority Date/Time Associated Diagnosis Comments SCREENING MAMMOGRAM BILATERAL W LELO Schedule Routine, Read Routine (OP Routine) 05/19/2024 10:16 AM LICENSED MIDWIFE Breast cancer screening by mammogram STOOL DNA COLOGUARD Routine 01/13/2022 10:30 AM CDT Colon cancer screening from Last 3 Months or Most Recently Relevant to Health Maintenance Results * Screening Mammogram Bilateral W Lelo (05/19/2024 10:16 AM LICENSED MIDWIFE) Anatomical Region Laterality Modality Breast Bilateral Mammography Lisa READ IMMickey MAMMO PROCEDURES Final Result * Stool DNA - Cologuard (01/13/2022 10:30 AM CDT) Stool DNA - Cologuard Negative Negative [employer] (CLIA #:[id number]) Comment: NEGATIVE TEST RESULT. A negative Cologuard [...] (Meli Petit al, N Engl J Med 2014;370(14):1453-3215) The normal value (reference range) for this assay is negative. COLOGUARD RE-SCREENING RECOMMENDATION: Periodic colorectal cancer screening is an important part of preventive healthcare for asymptomatic individuals at average risk for colorectal cancer. Following a negative Cologuard result, the [place] Cancer Society and U.S. Multi-Society Task Force screening guidelines recommend a Cologuard re-screening interval of 3 years. References: [place] [employer] Guideline for Colorectal Cancer Screening: https://www.cancer.org/cancer/vakzh-iteimw-eouant/uherwtbdw-rzgjjetvq-kfcvjdv/ac s-rec ommendations.html.; Riccardo DK, Jennifer KYLE, Neal AmbrizK, Colorectal Cancer Screening: Recommendations for Physicians and Patients from the U.S. Multi-Society Task Force on Colorectal Cancer Screening , Am J Gastroenterology 2017; 112:7254-2447. TEST DESCRIPTION: Composite algorithmic analysis of stool [...] (Meli Petit al, N Engl J Med 2014;370(14):3681-7972.) Cologuard may produce a false negative or false positive result (no colorectal cancer or precancerous polyp present at colonoscopy follow up). A negative Cologuard test result does not guarantee the absence of CRC or advanced adenoma (pre-cancer). The current Cologuard screening interval is every 3 years. ([place] Cancer Society and U.S. Multi-Society Task Force). Cologuard performance data in a 10,000 patient pivotal study using colonoscopy as the reference method can be accessed at the following location: www.[employer]/results. Additional description of the Cologuard test process, warnings and precautions can be found at www.cologuard.com. Stool 01/13/2022 10:3 0 AM CDT 01/15/2022 7:09 PM CDT Lisa READ LAB BODY FLUIDS AND STOOLS ORDERABLES Final Result [email or web address] (CLIA #:[id number]) [place] [address] from Last 3 Months or Most Recently Relevant to Health Maintenance Insurance [facility] [id number] [facility] [id number] Member Subscriber Plan / Payer (Ef fective 2020-Present) Name:Maria A Fisher Member ID:[id number] Relation to Subscriber:Self Name:Maria A Fisher Subscriber ID:[id number] Payer ID:[id number] Type:[employer] HMO/PPO Address: [address] [place] [id number] Care Teams Brim Stretcher Relationship Specialty Start Date End Date Lisa Trujillo PA [address] [facility] [address] [place] [address] PCP - General Internal Medicine 11/10/18
--- OUTSIDE RECORDS SUMMARY | 2024-09-07 11:49 | XMS_ITS | Data Portability ---
Author Organization [facility] Address [address] [place] [address] [place] [address] Care Team Providers Care Tobacco Classer Name Role Phone NATANAEL LONG Primary Care Provider Assessment Encounter Date Assessment Date Assessment LastModified by Organization Details LastModified Time 04/20/2024 04/20/2024 Annual gynecological exam performed. Patient will come back in a year unless there are new symptoms. [email or web address] Not available 04/01/2024 12:42:26 Plan of Treatment Reminders Order Date Submit Date Provider Last Modified By Organization Details Last Modified Time Details Appointments MED CHECK 2024 11:30A Celestino PRATHER MD Not available Not available Not available Lab None recorded. Referral None recorded. Procedures None recorded. Surgeries None recorded. Imaging MAMMO, screening , digital, bilateral 2023 024 [facility], [address], [place], [address], 04/27/2024 04:09:27 Medication Orders Zepbound 10 mg/0.5 mL subcutane ous pen injector 2024 025 [id number], [address], [place], [place], [id number], 07/29/2024 16:59:23 Zepbound 7.5 mg/0.5 mL subcutane ous pen injector 2023 024 [email or web address], [address], [place], [address], 04/07/2024 09:52:43 Wegovy 2.4 mg/0.75 mL subcutane ous pen injector 2023 024 [id number], [address], [place], [place], [id number], 04/07/2024 09:52:45 Patient TargetsNo targets recorded. Patient InstructionsNo instructions recorded. Reason for Referral None Reported. Results Created Date Observation Date Name Description Value Unit Range Abnormal Flag Note LastModifiedBy Organization Detail LastModifiedTime 04/29/20 24 04/29/2024 MAMMO , scree guillermo, bilat eral No observ ation record ed. [email or web address] [facility] [address], [place], [address], 05/04/2024 10:21:58 04/29/20 24 04/29/2024 MAMMO , scree guillermo, bilat eral No observ ation record ed. [email or web address] [facility] [address], [place], [address], 05/04/2024 10:22:22 05/18/20 24 05/18/2024 MAMMO , diagn ostic , digit al, unila teral No observ ation record ed. [facility] [address], [place], [address], 05/18/2024 21:45:40 Result Notes None recorded. Problems Name Problem SNOMED Code Status Onset Date Resolution Date Notes Provider Name and Address Organization Details Recorded Time Body mass index 25-29 - overweig [id number] Completed 201606/06/2021 Body mass index (BMI) 26.0-26.9 , adult;Rec orded Elsewhere : No Locati on: [facility] So urce: EHR Chron ic: N Practic e ID: 0001 Bill able Time: 01:00:00 PM Beverly Thayer [facility] [place] - [facility] 1 14:46:44 Screenin g for malignan t neoplasm of rectum Completed 201406/06/2021 Encounter for screening for malignant neoplasm of rectum;Re corded Elsewhere : No Locati on: [facility] So urce: EHR Chron ic: N Practic e ID: 0001 Bill able Time: 08:45:00 AM Beverly Thayer [facility] 1 14:46:58 Mucous polyp of cervix [id number] Completed 201306/06/2021 Cervical polyp;Rec orded Elsewhere : No Locati on: [facility] So urce: EHR Chron ic: N Practic e ID: 0001 Bill able Time: 03:00:00 PM Beverly Thayer [facility] 14:46:50 Menopaus e present [id number] Completed 201506/06/2021 Menopausa l and female climacter ic states;Re corded Elsewhere : No Locati on: [facility] So urce: EHR Chron ic: N Practic e ID: 0001 Bill able Time: 10:30:00 AM Beverly Thayer [facility] 14:46:[address] Concept Completed 201606/06/2021 Encntr for regional account executive exam (general) (routine) w/o abn findings; Recorded Elsewhere : No Locati on: [facility] So urce: EHR Chron ic: N Practic e ID: 0001 Bill able Time: 01:00:00 PM Beverly Thayer [facility] 1 14:47:01 Speciali amritad medical examinat ion Completed 201306/06/2021 Gynecolog ical Examinati on;Record ed Elsewhere : No Locati on: [facility] So urce: EHR Chron ic: N Practic e ID: 0001 Bill able Time: 01:45:00 PM Beverly Thayer [facility] [address] 14:47:[address] Concept Completed 201406/06/2021 Encntr for general adult medical exam w/o abnormal findings; Recorded Elsewhere : No Locati on: [facility] So urce: EHR Chron ic: N Practic e ID: 0001 Bill able Time: 08:45:00 AM Beverly Thayer [facility] 14:46:59 Radiolog ic finding [id number] Completed 201706/06/2021 Oth abn and inconclus pasquale findings on dx imaging of breast;Re corded Elsewhere : No Locati on: [facility] So urce: EHR Chron ic: N Practic e ID: 0001 Bill able Time: 11:01:39 AM [facility] Thayer [facility] 14:46:46 Polyp of cervix [id number] Completed 201406/06/2021 Mucous polyp of cervix;Re corded Elsewhere : No Locati on: [facility] So urce: EHR Chron ic: N Practic e ID: 0001 Bill able Time: 08:45:00 AM [facility] Thayer [facility] 14:46:54 Screenin g for malignan t neoplasm of cervix Completed 201306/06/2021 Pap Smear;Pra ctice ID: 0001 [facility] 14:46:55 Problem Notes None recorded. Procedures Surgical History Date Name Laterality Status Provider Name and Address Organization Details Recorded Time 05/18/20 24 Date of Last Mammogram completed Flora Vitale [facility] 07/29/2024 12:34:57 10/18/19 23 Date of Last Pap Smear completed Maria A Harris [facility] 08/14/2023 13:16:25 05/25/20 20 Endometrial Biopsy completed Afua Russ CNM [address], [place], [address], [facility] 05/25/2020 11:51:28 05/25/20 20 endometrial biopsy completed [facility] 05/25/2020 11:39:01 03/27/20 15 cervical polypectomy completed [facility] 08/14/2023 13:18:22 06/23/19 15 Breast Biopsy completed [facility] 08/14/2023 13:26:35 06/23/19 04 surgical procedure on eye proper using laser completed [facility] 08/14/2023 13:18:05 06/23/18 99 ligation of bilateral fallopian tubes completed [facility] 05/03/2020 17:05:07 excision of basal cell carcinoma completed [facility] 05/03/2020 17:03:55 Imaging Results Imaging Date Name Status LastModified by Organiz ation Details LastModified Time 04/29/2024 MAMMO, screening, bilateral completed [email or web address] [facility] [address], [place], [address], 05/04/2024 10:21:58 04/29/2024 MAMMO, screening, bilateral completed [address] [facility] [address], [place], [address], 05/04/2024 10:22:22 05/18/2024 MAMMO, diagnostic, digital, unilateral completed [facility] [address], [place], [address], 05/18/2024 21:45:40 Procedure Notes None recorded. Medical Equipment None Reported. Allergies No known drug allergies Medications Name Sig Start Date Stop Date Status Note LastModified by Organization Details LastModified Time id now influenza a & b 2 test kit TEST DIRECTED TODAY 10/17 completed Not Available Not Available Not Available fluoroura cil 5 % topical cream APPLY TOPICALL Y TO THE AFFECTED AREA DAILY FOR 4 WEEKS 07/29 completed Not Available Not Available Not Available Vitamin D2 1,250 mcg (50,000 unit) capsule take 1 capsule by oral route every week 05/06 completed Prescrib ed Elsewher e: Yes Loca tion: Herber pacheco [facility] odify By: [email or web address] z Nate godoy DateTime : 03/10/20 14 01:45:00 PM Not Available Not Available Not Available neomycin 3.5 mg/g-poly myxin B 10,000 unit/g-de xameth 0.1 % eye oint APPLY THIN LAYER TO RIGHT EYELID THREE TIMES DAILY AFTER SURGERY. CONTINUE DIRECTED 07/29 completed Not Available Not Available Not Available escitalop alvarado 10 mg tablet 06/06 completed Not Available Not Available Not Available escitalop alvarado 20 mg tablet 10/17 completed Not Available Not Available Not Available atomoxeti ne 80 mg capsule 02/04 completed Not Available Not Available Not Available Vyvanse 30 mg capsule take 1 capsule by oral route every day in the morning 02/04 completed Not Available Not Available Not Available nebivolol 5 mg tablet 07/29 completed Not Available Not Available Not Available lisdexamf etamine 20 mg capsule TAKE 1 CAPSULE BY MOUTH EVERY MORNING active Not Available Not Available No t Available Brisdelle 7.5 mg capsule take 1 capsule by oral route every day at bedtime 06/06 completed Prescrib ed Elsewher e: No Locat ion: [facility] odify By: arcelia landrum DateTime : 05/06/20 16 10:30:00 AM Not Available Not Available Not Available ID NOW COVID-19 Test Kit TEST DIRECTED TODAY 10/17 completed Not Available Not Available Not Available Wegovy 2.4 mg/0.75 mL subcutane ous pen injector INJECT 2.4MG BY SUBCUTAN EOUS ROUTE ONCE WEELY 04/07 completed Not Available Not Available Not Available Wegovy 1.7 mg/0.75 mL subcutane ous pen injector INJECT 1.7 MG EVERY WEEK BY SUBCUTAN EOUS ROUTE. 08/14 completed Not Available Not Available Not Available Wegovy 1 mg/0.5 mL subcutane ous pen injector Inject 1 mg every week by subcutan eous route. 08/14 completed Not Available Not Available Not Available Wegovy 0.25 mg/0.5 mL subcutane ous pen injector Inject 0.25 mg every week by subcutan eous route. 08/14 completed Not Available Not Available Not Available Wegovy 0.5 mg/0.5 mL subcutane ous pen injector Inject 0.5 mg every week by subcutan eous route. 08/14 completed Not Available Not Available Not Available Mounjaro 5 mg/0.5 mL subcutane ous pen injector 08/14 completed Not Available Not Available Not Available Mounjaro 10 mg/0.5 mL subcutane ous pen injector Inject by subcutan eous route. 04/20 completed Not Available Not Available Not Available Zepbound 10 mg/0.5 mL subcutane ous pen injector INJECT 10 MG UNDER THE SKIN WEEKLY active Not Available Not Available No t Available Zepbound 7.5 mg/0.5 mL subcutane ous pen injector INJECT 7.5 MG EVERY WEEK UNDER THE SKIN 04/07 completed Not Available Not Available Not Available Vitals Date Recorded Body height Body mass index (BMI) Body weight Systolic blood pressure Diastolic blood pressure Provider Name and Address Organization Details Last Updated DateTime 10/14/2023 157.48 cm 27.3 kg/m2 42423.26 g 102 mm[Hg] 73 mm[Hg] [facility] 4 10:01:28 Date Recorded Body height Body mass index (BMI) Body weight Systolic blood pressure Diastolic blood pressure Provider Name and Address Organization Details Last Updated DateTime 01/15/2024 157.48 cm 26.7 kg/m2 20697.49 g 104 mm[Hg] 75 mm[Hg] [facility] 4 10:34:46 Date Recorded Body height Body mass index (BMI) Body weight Systolic blood pressure Diastolic blood pressure Provider Name and Address Organization Details Last Updated DateTime 04/20/2024 157.48 cm 25.9 kg/m2 22577.68 g 101 mm[Hg] 71 mm[Hg] Amaya Ramirezton [facility] 4 14:32:51 Date Recorded Body height Body mass index (BMI) Body weight Systolic blood pressure Diastolic blood pressure Provider Name and Address Organization Details Last Updated DateTime 04/27/2024 157.48 cm 26 kg/m2 32362.12 g 108 mm[Hg] 75 mm[Hg] [facility] 4 10:33:48 Date Recorded Body height Body mass index (BMI) Body weight Systolic blood pressure Diastolic blood pressure Provider Name and Address Organization Details Last Updated DateTime 07/29/2024 157.48 cm 25.4 kg/m2 48815.34 g 108 mm[Hg] 77 mm[Hg] [facility] 5 12:34:27 Social History Question Answer Notes LastModified by Organizat ion Details LastModified Time Tobacco Smoking Status Never Smoker [facility] 02/04/2023 11:17:23 What Is Your Level Of Alcohol Consumption? Occasional [email or web address] Information not available 05/03/2020 Are You Blind Or Do You Have Difficulty Seeing? No Information not available 08/14/2023 In The 14 Days Before Symptom Onset, Have You Had Close Contact With A Laboratory-confir med COVID-19 While That Case Was Ill? No Information not available 10/17/2022 In The 14 Days Before Symptom Onset, Have You Had Close Contact With A Person Who Is Under Investigation For COVID-19 While That Person Was Ill? No Information not available 10/17/2022 Have You Been To An Area Known To Be High Risk For COVID-19? No Information not available 10/17/2022 Are You Deaf Or Do You Have Serious Difficulty Hearing? No [email or web address] Information not available 08/14/2023 What Type Of Diet Are You Following? REGULAR [email or web address] Information not available 08/14/2023 Do You Or Have You Ever Used E-cigarettes Or Vape? Never Used Electronic Cigarettes Information not available 02/04/2023 What Was The Date Of Your Most Recent Tobacco Screening? 08/14/2023 [email or web address] Information not available 08/14/2023 Do You Use Your Seat Belt Or Car Seat Routinely? Yes [email or web address] Information not available 08/14/2023 Do You Have Smoke And Carbon Monoxide Detectors In Your Home? Yes [email or web address] Information not available 08/14/2023 Do You Or Have You Ever Used Smokeless Tobacco? Never Used Smokeless Tobacco Information not available 02/04/2023 How Much Tobacco Do You Smoke? No [email or web address] Information not available 05/03/2020 Do You Feel Stressed (tense, Restless, Nervous, Or Anxious, Or Unable To Sleep At Night)? [id number] Information not available 08/14/2023 Do You Use Sunscreen Routinely? Yes [email or web address] Information not available 08/14/2023 Sex: Unknown Functional Status Question Answer Note LastModified by Organizat ion Details LastModified Time Do you have difficulty walking or climbing stairs? No [email or web address] Information not available 08/14/2023 Are you able to walk? YESWOREST Information not available 08/14/2023 Are you able to care for yourself? Yes [email or web address] Information not available 08/14/2023 Do you have difficulty dressing or bathing? No [email or web address] Information not available 08/14/2023 What is your exercise level? Occasional Information not available 05/03/2020 Mental Status None recorded. Family History Relationship Description Onset Age of this Age Resolved Age Notes LastModified by Organization Details LastModified Time Mother Malignant tumor of breast [email or web address] Not available 2022 11:23:38 Father Diabetes mellitus [email or web address] Not available 2022 11:23:38 Medical History Condition Response Allergies (Food, seasonal, environmental ) N Other Y Blood Transfusion N Drug/Latex Allergies/Reactions N Breast Cancer N Dermatologic Disorders N Lung Disease N Defects or Inherited Disease Y Breast Problem Y Gestational Diabetes N Hematologic disorders N Anesthesia Complications N History of STI N Deep Vein Thrombosis N Polycystic ovary syndrome N Anxiety Disorder N Autoimmune disease N Arthritis N Infertility N Polyps Y Acid Reflux (GERD) N History of abnormal pap N Cancer Y Stroke N Varicosities N Neurologic/Epilepsy Y Endometriosis N High Cholesterol N Headaches N Fibromyalgia N Kidney Disease N Heart Problems Y Kidney or Bladder Problems N Thyroid Problems N GI Problems N Eating Disorder N Anemia N Art (IVF or FET) N Psychiatric Illness N Ovarian Cancer N Diabetes N Pulmonary (TB, Asthma) N Hepatitis/Liver Disease N No Past Medical History N Eczema N Urinary Tract Infection N Abuse/Domestic Violence N Asthma N Trauma/Violence N Depression/ depression N Heart Disease N Pre-Eclampsia N Hypertension N Osteoporosis N Thrombophilias N Gynecological History Statement/Question Response Abnormal Pap N Flow Light Date of Last Mammogram 05/18/2024 Date of LMP 07/28/2024 Was last menstrual period normal Y STIs/STDs N HPV Vaccine N Duration of Flow (days) 6 Current Control Method Tubal Ligat ion Are cycles usually normal Y Date of Last Colonoscopy Frequency of Cycle (Q days) 28 Sexually Active? Y Menses Monthly Y Date of DEXA bone scan Age of first menstrual cycle 16 Date of Last Pap Smear 10/17/2022 Sexual Problems? N LMP Definite Obstetrics History GPAL:G 3 P 2 0 1 2 Type Value Full Term 2 Spontaneous 1 Living 2 Total 3 Past Encounters Encounter ID Performer Location Encounter Start Date Encounter Closed Date Diagnosis/Indication Diagnosis SNOMED-CT Code Diagnosis ICD10 Code Diagnosis Note [id number] Corrina Cagle [facility] [address] [address] 04/27/2020 10:41:33 04/27/2020 11:30:14 Gynecologic examination 44944704 Z01.419 Suggested Calcium with Vitamin D 1200-1500m g daily. Patient advised to get an annual flu shot in the fall and she could obtain at [facility] or [facility] take care clinic. Also to obtain TDap vaccinatio n if you have not had one in the last 10 years. Recommend yearly mammograms . Encouraged monthly self breast exams. Encourage safe sexual practices, to use condoms and limit partners if not already in a monogamous relationsh ip. Engage in daily exercise of low impact aerobic exercise 45-60 minutes 4-5 times weekly. Avoid tobacco and illicit drugs as well as using moderation with alcohol intake less than 1-2 8 oz beverages daily. This lifestyle behavior pattern will lead to less health conditions and longer life span. If BMI greater than 25 weight watchers or dietary consult advised. All questions have been answered. Patient appears to understand informatio n, but if you have any questions please call or respond to this email. monogamous relationsh ip Norm pap hx pap/hpv updated Mammo ordered No issues or concerns [id number] [facility] [address] [address] 05/25/2020 11:24:59 05/25/2020 12:47:05 Specimen with abnormal presence of endometrial cells [id number] R87.619 [id number] Corrina Cagle [facility] [address],[facility] [place] [address] 06/06/2021 15:52:33 06/06/2021 16:39:33 Gynecologic examination 66369802 Z01.419 Suggested Calcium with Vitamin D 1200-1500m g daily. Patient advised to get an annual flu shot in the fall and she could obtain at [facility] or [facility] clinic. Also to obtain TDap vaccinatio n if you have not had one in the last 10 years. Recommend yearly mammograms . Encouraged monthly self breast exams. Encourage safe sexual practices, to use condoms and limit partners if not already in a monogamous relationsh ip. Engage in daily exercise of low impact aerobic exercise 45-60 minutes 4-5 times weekly. Avoid tobacco and illicit drugs as well as using moderation with alcohol intake less than 1-2 8 oz beverages daily. This lifestyle behavior pattern will lead to less health conditions and longer life span. If BMI greater than 25 weight watchers or dietary consult advised. All questions have been answered. Patient appears to understand informatio n, but if you have any questions please call or respond to this email. monogamous relationsh ip Norm pap hx--last year endo cells on pap prompted an EMBx which was neg. pap/hpv updated Mammo ordered No issues or concernsST D screen declined Discussed cologuard with her PCP Discussed genetic screen which she has completed in the past & was negative. [id number] Corrina Cagle [facility] [address] [address] 10/17/2022 11:45:53 10/17/2022 14:15:22 Gynecologic examination [id number] Z01.419 Z11.51 Suggested Calcium with Vitamin D 1200-1500m g daily. Patient advised to get an annual flu shot in the fall and she could obtain at [facility] or [facility] clinic. Also to obtain TDap vaccinatio n if you have not had one in the last 10 years. Recommend yearly mammograms . Encouraged monthly self breast exams. Encourage safe sexual practices, to use condoms and limit partners if not already in a [facility]. Engage in daily exercise of low impact aerobic exercise 45-60 minutes 4-5 times weekly. Avoid tobacco and illicit drugs as well as using moderation with alcohol intake less than 1-2 8 oz beverages daily. This lifestyle behavior pattern will lead to less health conditions and longer life span. If BMI greater than 25 weight watchers or dietary consult advised. All questions have been answered. Patient appears to understand informatio n, but if you have any questions please call or respond to this email. Pap/hpv sent STD Screen declined Genetic Screen discussed Colon Screen PCP Dexa Screen PCP Routine Labs PCPMammo ordered Screening mammography 24 [id number] Z12.31 [id number] Johnson Prather MD [facility] [address] [address] 02/04/2023 11:16:20 02/04/2023 12:54:20 Obesity 061711865 E66.9 This patient is a 52-year-ol d female who presents for weight management . We took a very thorough history. We talked about some of her goals. Talked about some of her challenges . We talked about some of her previous efforts in weight loss and her activity level. We talked about limitation s for activity. Talked about energy consumptio n energy expenditur e. She was given recommenda tions and some of these areas. We talked about the importance of resistance training and cardiovasc ular exercise. We talked about her medical history in its relationsh ip to excess body weight. We talked about treatment options. We talked about the evaluation that is appropriat e for beginning weight management . We talked about her diet and our dietitian. We agreed to a dietitian consult. We agreed to a sleep study. We agreed to metabolic testing. We performed body compositio n testing today. We reviewed those results and talked about their significan ce. We spent over 1 hour together. More than 50% was counseling . We agreed to come together in 2 weeks and initiate treatment. discussed medication s in detail. Arrived that wegovy. She has coverage. Given precaution s, given dosing instructio ns [id number] Johnson Prather MD [facility] [address],[facility] [place] [address] 04/08/2023 11:46:30 04/08/2023 12:40:02 Obesity 867823309 E66.9 This patient is a 52-year-ol d female who presents for follow-up on weight management . She has started Ozempic /Wegovy. she would like to get the new GLP 1 agonist. She lost significan t weight with the current medication . It is unknown whether she is going to be able to get approved. The insurance company states she needs prior authorizat ion. She has become resistance training and exercise. She is changing her diet. She is eating less sugar. She is doing well. She will follow-up in 2 months. Spent over 20 minutes face-to-fa ce. More than 50% was counseling . [id number] Johnson Prather MD [facility] [address],[facility] [place] [address] 06/10/2023 12:27:40 06/10/2023 13:25:49 Obesity 963536137 E66.9 This patient is a 52-year-ol d female who presents for follow-up on weight management . She has started Ozempic /Wegovy. she is covered for GLP 1 weight loss medication s. She is been taking will go be for a couple of months and has lost good weight. She is considerin g her current increasing her doses but is undecided. She still has 1 box of Wegovy at 1.7 mg. She is going to consider increasing her dose and let me know through the portal. She has become resistance training and exercise. She is changing her diet. She is eating less sugar. She is doing well. She will follow-up in 2 months. Spent over 20 minutes face-to-fa ce. More than 50% was counseling . [id number] Johnson Prather MD [facility] [address],[place] [address] 08/14/2023 12:21:03 08/14/2023 13:24:54 Obesity 707468026 E66.9 This patient is a 52-year-ol d female who presents for weight management follow-up. She is on 1 GLP 1 agonist and wants to switch to the newer GLP 1 agonist. We agreed to do that at a dose of 7.5 mg. Medication was prescribed . She is doing resistance training. She is concerns she has not losing weight little faster. She is also doing resistance training and probably adding muscle mass. We spent over 20 minutes face-to-fa ce. More than 50% was counseling . She is very mindful of her diet. Obese [id number] E66.9 [id number] Johnson Prather MD [facility] [address],[place] [address] 10/14/2023 09:53:33 10/15/2023 04:50:06 Obesity [id number] E66.9 This patient is a 52-year-ol d female who presents for weight management follow-up. She is on 1 GLP 1 agonist semaglutid e. discussed side effects, discussed current weight loss rate. Would like to try other GLP 1 agonist but insurance declined. She is also doing resistance training and probably adding muscle mass. We spent over 20 minutes face-to-fa ce. More than 50% was counseling . She is very mindful of her diet. [id number] Johnson Prather MD [facility] [address],[place] [address] 01/15/2024 10:12:30 01/15/2024 11:31:09 Obesity [id number] E66.9 This patient is a 52-year-ol d female who presents for weight management follow-up. She is on 1 GLP 1 agonist semaglutid e. discussed side effects, discussed current weight loss rate. Would like to try other GLP 1 agonist but insurance declined. we will again try getting the other GLP 1. She has plateaued with the semaglutid e. We talked about side effects, dosing, directions , precaution s.She is also doing resistance training and probably adding muscle mass. I spent more than 20 minutes on her care She is very mindful of her diet. [id number] MORA HAYES NP [facility] [address],[place] [address] 04/20/2024 14:26:01 04/20/2024 15:15:31 Gynecologic examination [id number] Z01.419 Annual gynecologi samantha exam performed. Patient will come back in a year unless there are new symptoms. Suggest Calcium with Vitamin D if not eating in diet. Patient advised to get annual flu shot. Recommend yearly physicals and perform monthly breast exams. Genetic testing is available for patients with family history of cancer. Engage in safe sexual practices, use condoms. Encouraged to have daily exercise. Avoid tobacco and illicit drugs, moderation of alcohol. If BMI greater than 25 dietary consult advised. If you have any questions please call or email. mammogram- Pt to schedule annual mammogram; order given. colon cancer screening - UTD - PCPDEXA scan-n/a Pap smear- UTD (2022- WNL, NILM, HPV neg) laboratory evaluation - PCP STI testing - declined Screening mammography 24 [id number] Z12.31 Pt to schedule; order given. [id number] Johnson Prather MD [facility] [address],[place] [address] 04/27/2024 10:26:05 04/27/2024 11:11:46 Obesity [id number] E66.9 This patient is a 52-year-ol d female who presents for weight management follow-up. She is on 1 GLP 1 agonist semaglutid e. discussed side effects, discussed current weight loss rate. Would like to try other GLP 1 agonist but insurance declined. we will again try getting the other GLP 1. She has plateaued with the semaglutid e. We talked about side effects, dosing, directions , precaution s.She is also doing resistance training and probably adding muscle mass. I spent more than 20 minutes on her care She is very mindful of her diet. patient is taking 10 mg oif zepbound [id number] Johnson Prather MD [facility] [address],[place] [address] 07/29/2024 12:16:38 07/29/2024 17:04:40 Obesity [id number] E66.9 This patient is a 52-year-ol d female who presents for weight management follow-up. She is on 1 GLP 1 agonist semaglutid e. discussed side effects, discussed current weight loss rate. Would like to try other GLP 1 agonist but insurance declined. we will again try getting the other GLP 1. She has plateaued with the semaglutid e. We talked about side effects, dosing, directions , precaution s.She is also doing resistance training and probably adding muscle mass. I spent more than 20 minutes on her care She is very mindful of her diet. patient is taking 10 mg oif zepbound Health Concerns Section Related Observation LastModified by Organization Detai ls LastModified Time None Recorded Concern Status LastModified by Organization Details LastModified Time None Recorded Advance Directives Directive None Recorded Payers Encounter Date Sequence Insurance Name Policy Number Policy Macias Covered Member ID Macias Member ID Guarantor Name 10/14/2023 1 [employer] Maria A Natalia [id number] OI Maria A Natalia 01/15/2024 1 [employer] Maria A Natalia [id number] OI Maria A Natalia 04/20/2024 1 [employer] Maria A Natalia [id number] OI Maria A Natalia 04/27/2024 1 [facility] [employer] Maria A Natalia [id number] OI Maria A Natalia 07/29/2024 1 [facility] Maria A Natalia [id number] OI Maria A Natalia Notes Date Note Type Note Provider Name and Address Organization Details Recorded Time 10/14/2023 text/html This patient is a 52-year-old female who presents for weight management follow-up. She is on 1 GLP 1 agonist semaglutide. discussed side effects, discussed current weight loss rate. Would like to try other GLP 1 agonist but insurance declined. She is also doing resistance training and probably adding muscle mass. We spent over 20 minutes [id number]. More than 50% was counseling. She is very mindful of her diet. Johnson Prather MD [address], [place], [address], [facility] 10/14/2023 20:23:28 01/15/2024 text/html This patient is a 52-year-old female who presents for weight management follow-up. She is on 1 GLP 1 agonist semaglutide. discussed side effects, discussed current weight loss rate. Would like to try other GLP 1 agonist but insurance declined. we will again try getting the other GLP 1. She has plateaued with the semaglutide. We talked about side effects, dosing, directions, precautions.She is also doing resistance training and probably adding muscle mass. I spent more than 20 minutes on her care She is very mindful of her diet. Johnson Prather MD [address], [place], [address], [facility] 01/15/2024 11:17:52 04/20/2024 text/html Annual GYNReport ed bypatient.History: no gynecologic complaints Menstrual cycle:Normal menses Urinary symptoms:No hematuria; No incontinence Vulva:No genital lesion Vagina:Normal vaginal discharge Breast:No breast pain; No breast lump; No nipple discharge Current Contraception:Tuba l ligation Sexual complaints:No sexual complaints; No pain during intercourse; Normal libido Menopausal Symptoms:No menopausal symptoms; Normal vaginal lubrication Psychological symptoms:No depression; No anxiety; No PMDD Preventive measures:Encourage self breast examination; Encourage regular exercise; Encourage no tobacco use; Encourage regular mammograms starting age 40; Needs to schedule mammogram; Up to date on colonoscopy screening Patient presents for annual well woman exam. Patient denies concerns today. MORA HAYES NP [address], [place], [address], [facility] 04/20/2024 15:01:44 04/27/2024 text/html This patient is a 52-year-old female who presents for weight management follow-up. She is on 1 GLP 1 agonist semaglutide. discussed side effects, discussed current weight loss rate. Would like to try other GLP 1 agonist but insurance declined. we will again try getting the other GLP 1. She has plateaued with the semaglutide. We talked about side effects, dosing, directions, precautions.She is also doing resistance training and probably adding muscle mass. I spent more than 20 minutes on her care She is very mindful of her diet. patient is taking 10 mg oif zepbound Johnson Prather MD [address], [place], [address], [facility] 04/27/2024 11:07:15 07/29/2024 text/html This patient is a 52-year-old female who presents for weight management follow-up. She is on 1 GLP 1 agonist semaglutide. discussed side effects, discussed current weight loss rate. Would like to try other GLP 1 agonist but insurance declined. we will again try getting the other GLP 1. She has plateaued with the semaglutide. We talked about side effects, dosing, directions, precautions.She is also doing resistance training and probably adding muscle mass. I spent more than 20 minutes on her care She is very mindful of her diet. patient is taking 10 mg oif zepbound Johnson Prather MD [address], [place], [address], [facility] 07/29/2024 16:59:33 OBGyn Episode Ob Episode Information Episode Created Date Number of Fetuses Patient Bloodtype Patient rh Status Prepregnancy Weight lbs Domestic Partner Domestic Partner Phone Father Name Safety Technician Status 05/03/20 20 1 CLOSED Fetus Data First Name Last Name Admitted to NICU Weight (g) Sex Living Outcome Pediatric Complications Fetus ID Race Codes Race Delivery Type , Spontane ous [id number] Carmine Calculation Initial Carmine Date Initial Exam Date Initial Exam Provider Initial Ultrasound Date Last Menstrual Period Date Ultra Sound Weeks Gestation 0 Eighteen To Twenty Week Carmine Update Ultra Sound Date Fundal Height At Umbil Quickening Date Ultra Sound Latest Weeks Gestation Final Carmine Confirmed By Final Carmine Confirmed Date Final Carmine Date Ultra Sound Latest Days Gestation 0 0 Menstrual History Last Menstrual Date Menses Monthly On Bcp Conception Prior Menses Frequency Hcg Plus Date Menarche Onset Age Delivery Information Delivery Date Delivery Type Labor Anesthesia Weeks Gestation Incision Type Labor Labor Length Hrs Delivered By Post Complications Tubal Sterilization Discharge Date Comments 6 96 miscarria ge Discharge Information Feeding Method Contraceptive Method Maternal HG B and HCT Levels Ob Episode Information Episode Created Date Number of Fetuses Patient Bloodtype Patient rh Status Prepregnancy Weight lbs Domestic Partner Domestic Partner Phone Father Name Safety Technician Status 05/03/20 20 1 CLOSED Fetus Data First Name Last Name Admitted to NICU Weight (g) Sex Living Outcome Pediatric Complications Fetus ID Race Codes Race Delivery Type 2749.67 4704 F Full Term 6043 Vaginal Delivery Carmine Calculation Initial Carmine Date Initial Exam Date Initial Exam Provider Initial Ultrasound Date Last Menstrual Period Date Ultra Sound Weeks Gestation 0 Eighteen To Twenty Week Carmine Update Ultra Sound Date Fundal Height At Umbil Quickening Date Ultra Sound Latest Weeks Gestation Final Carmine Confirmed By Final Carmine Confirmed Date Final Carmine Date Ultra Sound Latest Days Gestation 0 0 Menstrual History Last Menstrual Date Menses Monthly On Bcp Conception Prior Menses Frequency Hcg Plus Date Menarche Onset Age Delivery Information Delivery Date Delivery Type Labor Anesthesia Weeks Gestation Incision Type Labor Labor Length Hrs Delivered By Post Complications Tubal Sterilization Discharge Date Comments 3 Discharge Information Feeding Method Contraceptive Method Maternal HG B and HCT Levels Ob Episode Information Episode Created Date Number of Fetuses Patient Bloodtype Patient rh Status Prepregnancy Weight lbs Domestic Partner Domestic Partner Phone Father Name Safety Technician Status 05/03/20 1 CLOSED Fetus Data First Name Last Name Admitted to NICU Weight (g) Sex Living Outcome Pediatric Complications Fetus ID Race Codes Race Delivery Type 2834.95 F Full Term 6044 Vaginal Delivery Carmine Calculation Initial Carmine Date Initial Exam Date Initial Exam Provider Initial Ultrasound Date Last Menstrual Period Date Ultra Sound Weeks Gestation 0 Eighteen To Twenty Week Carmine Update Ultra Sound Date Fundal Height At Umbil Quickening Date Ultra Sound Latest Weeks Gestation Final Carmine Confirmed By Final Carmine Confirmed Date Final Carmine Date Ultra Sound Latest Days Gestation 0 0 Menstrual History Last Menstrual Date Menses Monthly On Bcp Conception Prior Menses Frequency Hcg Plus Date Menarche Onset Age Delivery Information Delivery Date Delivery Type Labor Anesthesia Weeks Gestation Incision Type Labor Labor Length Hrs Delivered By Post Complications Tubal Sterilization Discharge Date Comments 9 Discharge Information Feeding Method Contraceptive Method Maternal HG B and HCT Levels
--- OUTSIDE RECORDS SUMMARY | 2024-09-07 11:49 | XMS_ITS | Encounter Summary ---
Author Organization [facility] Facility Care Team Providers Care Stem Roller Operator Name Role Phone Lisa Trujillo Primary Care Provider +1- [phone] Encounter Details Date Type Department Care Team (Latest Contact Info) Description 06/03/2018 Orders Only [facility] CLINCONV Provider, MD Jacob [address] [place] [address] Social History Tobacco Use Types Packs/Day Years Used Date Smoking Tobacco: Never Assessed Comments Unknown Sex and Gender Information Value Date Recorded Sex Assigned at Not on file Legal Sex Female 11:48 AM HOUSEHOLD APPLIANCE REPAIRER Gender Identity Not on file Sexual Orientation Not on file documented as of this encounter Plan of Treatment Not on file documented as of this encounter Procedures Procedure Name Priority Date/Time Associated Diagnosis Comments SCAN - PATHOLOGY 06/08/2018 12:0 0 AM HOUSEHOLD APPLIANCE REPAIRER documented in this encounter Results * SCAN - PATHOLOGY (06/08/2018 12:00 AM HOUSEHOLD APPLIANCE REPAIRER) Narrative 06/08/2018 12:00 AM HOUSEHOLD APPLIANCE REPAIRER Ordered by an unspecified provider. Historical Provider Final Res ult documented in this encounter Visit Diagnoses Not on filedocumented in this encounter Additional Health Concerns Infection Onset Date Last Indicated Resolved Time COVID: Suspected 06/29/2021 06/29/2021 06/30/2021 7:45 AM HOUSEHOLD APPLIANCE REPAIRER COVID19 06/29/2021 06/29/2021 07/09/2021 3:06 AM HOUSEHOLD APPLIANCE REPAIRER COVID: Recovered Comment:Added based on recent COVID infection. 07/09/2021 07/11/202111/06/2021 3:05 AM C DT documented as of this encounter Care Teams Stem Roller Operator Relationship Specialty Start Date End Date Lisa Trujillo PA [address] [address] PCP - General Internal Medicine 11/10/18 documented as of this encounter
--- OUTSIDE RECORDS SUMMARY | 2024-09-07 11:49 | XMS_ITS | Encounter Summary ---
Author Organization [facility] Facility Care Team Providers Care Broiler Chef Or Cook Name Role Phone Lisa Trujillo Primary Care Provider +1- [phone] Encounter Details Date Type Department Care Team (Latest Contact Info) Description 05/13/2018 Orders Only [facility] CLINCONV Provider, MD Jacob [address] [place] [address] Social History Tobacco Use Types Packs/Day Years Used Date Smoking Tobacco: Never Assessed Comments Unknown Sex and Gender Information Value Date Recorded Sex Assigned at Not on file Legal Sex Female 11:48 AM MANAGER PERIOPERATIVE Gender Identity Not on file Sexual Orientation Not on file documented as of this encounter Plan of Treatment Not on file documented as of this encounter Procedures Procedure Name Priority Date/Time Associated Diagnosis Comments SCAN - PATHOLOGY 05/18/2018 12:0 0 AM MANAGER PERIOPERATIVE documented in this encounter Results * SCAN - PATHOLOGY (05/18/2018 12:00 AM MANAGER PERIOPERATIVE) Narrative 05/18/2018 12:00 AM MANAGER PERIOPERATIVE Ordered by an unspecified provider. Historical Provider Final Res ult documented in this encounter Visit Diagnoses Not on filedocumented in this encounter Additional Health Concerns Infection Onset Date Last Indicated Resolved Time COVID: Suspected 06/29/2021 06/29/2021 06/30/2021 7:45 AM MANAGER PERIOPERATIVE COVID19 06/29/2021 06/29/2021 07/09/2021 3:06 AM MANAGER PERIOPERATIVE COVID: Recovered Comment:Added based on recent COVID infection. 07/09/2021 07/11/202111/06/2021 3:05 AM C DT documented as of this encounter Care Teams Broiler Chef Or Cook Relationship Specialty Start Date End Date Lisa Trujillo PA [address] [address] PCP - General Internal Medicine 11/10/18 documented as of this encounter
--- OUTSIDE RECORDS SUMMARY | 2024-09-07 11:49 | XMS_ITS | Clinical Summary ---
Author Organization [facility] Address [address] [place] [address] Care Team Providers Care Consular Officer Name Role Phone Non-Staff, Provider Primary Care Provider Jodi lable Allergies No known active allergies Medications lisdexamfetamin e (VYVANSE) 10 MG capsule Take 2 capsules (20 mg total) by mouth every morning. Active nebivolol (BYSTOLIC) 20 MG tablet Take 5 mg by mouth daily. Active Social History Tobacco Use Types Packs/Day Years Used Date Smoking Tobacco: Never Smokeless Tobacco: Never Tobacco Cessation:Counseling Given: Not Answered Alcohol Use Standard Drinks/Week Comments Never 0 (1 standard drink = 0.6 oz pur e alcohol) Comments No Sex and Gender Information Value Date Recorded Sex Assigned at Not on file Legal Sex Female 11:00 PM BOIL OFF WORKER Gender Identity Not on file Sexual Orientation Not on file Last Filed Vital Signs Vital Sign Reading Time Taken Comments Blood Pressure 121/66 03/15/2024 11:55 AM CDT Pulse 82 03/15/2024 11:55 AM CDT Temperature 36.2 C (97.1 F) 03/15/2024 10:56 AM CDT Respiratory Rate 18 03/15/2024 10:56 AM CDT Oxygen Saturation 99% 03/15/2024 11:55 AM CDT Inhaled Oxygen Concentration - - Weight 55.8 kg (123 lb) 03/02/2024 11:43 AM CDT Height 160 cm (5' 3 ) 03/02/2024 11:43 AM CDT Body Mass Index 21.79 03/02/2024 11:43 AM CDT Plan of Treatment Health Maintenance Due Date Last Done Comments Colorectal Cancer Screening Colonoscopy (10 Years) 1972 Annual Physical 08/22/1975 Hepatitis C 1990 DTaP, Tdap and Td Vaccines ( 1 - Tdap) 08/22/1991 Hepatitis B Vaccines (1 of 3 - 19+ 3-dose series) 08/22/1991 Cervical Cancer Screening Pa p with HPV Testing (Age 30 to 64) Every 5 Years 2002 Mammogram Screening 2012 Zoster Vaccines (1 of 2) 2022 COVID-19 Vaccine (3 - 2023-2 5 season) 2024 11/02/2020, 10/05/2020 Influenza Adult (#1) 2024 Cervical Cancer Screening Pa p Smear (Age 30 to 64) Every 3 Years 10/17/2025 10/17/2022 Cervical Cancer Screening wi th HPV 10/17/2025 Meningococcal B Vaccine Aged Out No l onger eligible based on patient's age to complete this topic Meningococcal Vaccine Aged Out No jonna sheridan eligible based on patient's age to complete this topic Pneumococcal Vaccine: Pediatrics (0 to 5 Years) and At-Risk Patients (6 to 64 Years) Aged Out No longer eligible b ased on patient's age to complete this topic RSV Immunizations Under 20 Months Aged Out No longer eligible b ased on patient's age to complete this topic Insurance [facility] Care Teams Consular Officer Relationship Specialty Start Date End Date Non-Staff, Provider PCP - General UNKNOWN PHYSICIAN SPECIALTY 03/15/24
== END 2024-09-07 10:25 | disposition home or self-care (01) ==
LOC: ANHLAB 10:27
PROVIDERS: PCP Physician Assistant; Visit Provider Podiatrist Foot & Ankle Surgery
DX: B35.1 Tinea unguium (principal)
CPT/HCPCS: 36415; 84450; 84460

== ENCOUNTER 2024-12-07 09:45 | Outpatient (CLI) | payer OTHER, SELFPAY ==
[2024-12-07 10:26] LABS: Alanine Aminotransferase 39 U/L (6-35); Aspartate Amino Transferase 34 U/L (14-36)
--- OUTSIDE RECORDS SUMMARY | 2024-12-07 10:47 | XMS_ITS | Encounter Summary ---
Author Organization [facility] Facility Care Team Providers Care Assistant Commissioner Name Role Phone Lisa Trujillo Primary Care Provider +1- [phone] Encounter Details Date Type Department Care Team (Latest Contact Info) Description 06/03/2018 Orders Only [facility] CLINCONV Provider, MD Jacob [address] [place] [address] Social History Tobacco Use Types Packs/Day Years Used Date Smoking Tobacco: Never Assessed Comments Unknown Sex and Gender Information Value Date Recorded Sex Assigned at Not on file Legal Sex Female 11:48 AM REGISTRATION CLERK Gender Identity Not on file Sexual Orientation Not on file documented as of this encounter Plan of Treatment Not on file documented as of this encounter Procedures Procedure Name Priority Date/Time Associated Diagnosis Comments SCAN - PATHOLOGY 06/08/2018 12:0 0 AM REGISTRATION CLERK documented in this encounter Results * SCAN - PATHOLOGY (06/08/2018 12:00 AM REGISTRATION CLERK) Narrative 06/08/2018 12:00 AM REGISTRATION CLERK Ordered by an unspecified provider. Historical Provider Final Res ult documented in this encounter Visit Diagnoses Not on filedocumented in this encounter Additional Health Concerns Infection Onset Date Last Indicated Resolved Time COVID: Suspected 06/29/2021 06/29/2021 06/30/2021 7:45 AM REGISTRATION CLERK COVID19 06/29/2021 06/29/2021 07/09/2021 3:06 AM REGISTRATION CLERK COVID: Recovered Comment:Added based on recent COVID infection. 07/09/2021 07/11/202111/06/2021 3:05 AM C DT documented as of this encounter Care Teams Assistant Commissioner Relationship Specialty Start Date End Date Lisa Trujillo PA [address] [address] PCP - General Internal Medicine 11/10/18 documented as of this encounter
--- OUTSIDE RECORDS SUMMARY | 2024-12-07 10:47 | XMS_ITS | Encounter Summary ---
Author Organization [facility] Facility Care Team Providers Care Design Consultant Name Role Phone Lisa Trujillo Primary Care Provider +1- [phone] Encounter Details Date Type Department Care Team (Latest Contact Info) Description 06/01/2018 Orders Only [facility] CLINCONV Provider, MD Jacob [address] [place] [address] Social History Tobacco Use Types Packs/Day Years Used Date Smoking Tobacco: Never Assessed Comments Unknown Sex and Gender Information Value Date Recorded Sex Assigned at Not on file Legal Sex Female 11:48 AM CREDIT COLLECTIONS SPECIALIST Gender Identity Not on file Sexual Orientation Not on file documented as of this encounter Plan of Treatment Not on file documented as of this encounter Procedures Procedure Name Priority Date/Time Associated Diagnosis Comments SCAN - PATHOLOGY 06/03/2018 12:0 0 AM CREDIT COLLECTIONS SPECIALIST documented in this encounter Results * SCAN - PATHOLOGY (06/03/2018 12:00 AM CREDIT COLLECTIONS SPECIALIST) Narrative 06/03/2018 12:00 AM CREDIT COLLECTIONS SPECIALIST Ordered by an unspecified provider. Historical Provider Final Res ult documented in this encounter Visit Diagnoses Not on filedocumented in this encounter Additional Health Concerns Infection Onset Date Last Indicated Resolved Time COVID: Suspected 06/29/2021 06/29/2021 06/30/2021 7:45 AM CREDIT COLLECTIONS SPECIALIST COVID19 06/29/2021 06/29/2021 07/09/2021 3:06 AM CREDIT COLLECTIONS SPECIALIST COVID: Recovered Comment:Added based on recent COVID infection. 07/09/2021 07/11/202111/06/2021 3:05 AM C DT documented as of this encounter Care Teams Design Consultant Relationship Specialty Start Date End Date Lisa Trujillo PA [address] [address] PCP - General Internal Medicine 11/10/18 documented as of this encounter
--- OUTSIDE RECORDS SUMMARY | 2024-12-07 10:47 | XMS_ITS | Referral Summary ---
Author Organization [facility] [place] [address] [facility] Address [address] [place] [address] Care Team Providers Care Drag Car Racer Name Role Phone Lisa Trujillo Primary Care Provider +1- [phone] Allergies No known active allergies Medications Zepbound 7.5 mg/0.5 mL pen injector Active nebivoloL (BYSTOLIC) 5 mg tablet Take 1 tablet (5 mg total) by mouth daily 90 tablet 3 5 Active lisdexamfetamine (VYVANSE) 20 mg capsuleIndication s:Attention deficit disorder (ADD) without hyperactivity Take 1 capsule (20 mg total) by mouth every morning 30 capsule 5 Active lisdexamfetamine (VYVANSE) 20 mg capsuleIndication s:Attention deficit disorder (ADD) without hyperactivity Take 1 capsule (20 mg total) by mouth every morning 30 capsule 5 11/19/19 25 Discontinu ed(Reorder ) Active Problems Problem [...] evaluation based on her age. Referral to [facility] in [place]. Tachycardia 11/05/2022 Assessment & Plan (08/31/2024 9:36 AM CDT): Well-controlled with the Bystolic 5. Refills sent to pharmacy Assessment & Plan (06/03/2023 11:59 AM INSEMINATION WORKER): Patient saw Dr. Norris. According to his [...] pharmacy Assessment & Plan (06/03/2023 11:59 AM INSEMINATION WORKER): ADD has been well controlled with the [...] pharmacy Assessment & Plan (05/24/2022 9:22 PM INSEMINATION WORKER): Patient's symptoms are well controlled with Vyvanse [...] 30mg Assessment & Plan (06/04/2020 12:28 AM INSEMINATION WORKER): Stable with lexapro and vyvanse. Refills to pharmacy Assessment & Plan (02/20/2020 8:16 PM CDT): Continue Vyvanse Assessment & Plan (08/26/2019 9:38 AM INSEMINATION WORKER): Stable with the Vyvanse 30mg Just filled. Call for refills as needed Assessment & Plan (07/22/2019 8:50 AM INSEMINATION WORKER): This is a significant, separately identifiable problem that was evaluated and managed on the same day as the wellness exam Continue with the Vyvanse 30mg daily. Encouarged daily Lexapro and will reassess in 4-6 weeks. Assessment & Plan (06/10/2019 9:04 AM INSEMINATION WORKER): Stable with the Vyvanse 30mg. See if [...] 24 Assessment & Plan (06/03/2023 9:14 AM INSEMINATION WORKER): Weight/BMI is in healthy range. Continue healthy [...] and education provided. BMI 31.0-31.9,adult 01/30/2023 06/03/20 23 Assessment & Plan (01/30/2023 3:03 PM CDT): [...] and continuing activity. BMI 31.0-31.9,adult 11/05/2022 12/04/19 23 Assessment & Plan (11/05/2022 8:16 AM CDT): [...] 05/23/20222022 Assessment & Plan (05/23/2022 2:59 PM INSEMINATION WORKER): Obesity is unchanged. Discussed the patient's BMI. The BMI is above average. BMI management plan is completed. BMI Follow-up includes: nutrition counseling, exercise counseling and education provided. BMI 31.0-31.9,adult 05/23/2022 10/02/19 23 Assessment & Plan (05/23/2022 3:00 PM INSEMINATION WORKER): Obesity is unchanged. Discussed the patient's BMI. [...] and education provided. BMI 30.0-30.9,adult 12/18/2021 05/23/20 22 Assessment & Plan (12/18/2021 10:57 AM CDT): [...] 04/11/2024 Assessment & Plan (06/29/2021 8:53 PM INSEMINATION WORKER): Patient to presume positive COVID/FLU until results are available and plan to self isolate for up to 10 days from the onset of sxs. Check COVID/FLU test thru [facility] collection site in [place]. If positive COVID, complete 10 day quarantine [...] water often. If needed, use a hand sensitized paper tester that contains at least 60% alcohol. Clean and disinfect frequently touched surfaces such as tables, doorknobs, countertops, etc daily. Avoid touching your eyes, nose, and mouth when possible. Onychomycosis 04/08/2021 04/11/2024 Assessment & Plan (04/08/2021 8:30 PM CDT): Patient has thickened nails that looks most consistent with onychomycosis. Discussed referral to retail sales lead for toes nail sample she declines at this point. Discussed treatment options including Lamisil versus his topicals versus monitoring. Reviewed that there is no guarantee any bees will work and help the result is a very slow process. She is interested in the [facility] topical solution. She is to apply it [...] 21 Assessment & Plan (06/04/2020 12:28 AM INSEMINATION WORKER): Weight/BMI is in healthy range. Continue healthy lifestyle to maintain. BMI 26.0-26.9,adult 01/10/2020 05/29/20 20 Assessment & Plan (01/10/2020 4:33 PM CDT): Continue healthy lifestyle to continue healthy weight BMI 25.0-25.9,adult 08/26/2019 09/01/19 25 Assessment & Plan (04/11/2024 4:43 PM CDT): Weight/BMI is in healthy range. Continue healthy lifestyle to maintain. Assessment & Plan (08/26/2019 8:30 AM INSEMINATION WORKER): Weight/BMI is in healthy range. Continue healthy lifestyle to maintain. Annual physical exam 07/22/2019 020 Assessment & Plan (07/22/2019 8:49 AM INSEMINATION WORKER): Encouraged healthy lifestyle, good nutrition and exercise. [...] maintain. Assessment & Plan (07/22/2019 8:50 AM INSEMINATION WORKER): Weight/BMI is in healthy range. Continue healthy lifestyle to maintain. Assessment & Plan (06/10/2019 8:31 AM INSEMINATION WORKER): Weight/BMI is in healthy range. Continue healthy [...] weeks. Assessment & Plan (06/04/2020 12:28 AM INSEMINATION WORKER): Stable with lexapro and vyvanse. Refills to pharmacy Assessment & Plan (02/20/2020 8:16 PM CDT): Continue Lexapro Assessment & Plan (08/26/2019 9:38 AM INSEMINATION WORKER): Improved with the addition of the LExapro. Continue the same dose. Refills to pharmacy Assessment & Plan (07/22/2019 8:49 AM INSEMINATION WORKER): This is a significant, separately identifiable problem that was evaluated and managed on the same day as the wellness exam Take Lexapro hs and try to do consistently for 4-6 weeks/until followup. Will reassess at that time. Assessment & Plan (06/10/2019 9:04 AM INSEMINATION WORKER): Discussed options including starting SSRI. Reviewed risks, benefit, alternatives, side effects and proper use. Start lexapro 10mg one daily. F.u 6 weeks to reassess Other fatigue 06/10/2019 12/18/2021 Assessment & Plan (06/10/2019 9:05 AM INSEMINATION WORKER): Probably multifactorial. Check labs and followup to re-evaluate Will see if he trends toward hypoglycemia with her A1c. 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 Not on file Not [...] 8:59 AM CDT Height 160 cm (5' 3) 08/31/2024 8:59 AM CDT Body Mass Index 24.45 08/31/2024 8:59 AM CDT Plan of Treatment Not on file Procedures Procedure Name Priority Date/Time Associated Diagnosis Comments SCREENING MAMMOGRAM BILATERAL W LELO Schedule Routine, Read Routine (OP Routine) 05/19/2024 10:16 AM INSEMINATION WORKER Breast cancer screening by mammogram STOOL DNA COLOGUARD Routine 01/13/2022 10:30 AM CDT Colon cancer screening from Last 3 Months or Most Recently Relevant to Health Maintenance Results * Screening Mammogram Bilateral W Lelo (05/19/2024 10:16 AM INSEMINATION WORKER) Anatomical Region Laterality Modality Breast Bilateral Mammography Lisa READ IM MAMMO PROCEDURES Final Result * Stool DNA - Cologuard (01/13/2022 10:30 AM CDT) Stool DNA - Cologuard Negative Negative [facility] (CLIA #:[id number]) Comment: NEGATIVE TEST RESULT. A negative Cologuard [...] (Meli Petit al, N Engl J Med 2014;370(14):1041-2171) The normal value (reference range) for this assay is negative. COLOGUARD RE-SCREENING RECOMMENDATION: Periodic colorectal cancer screening is an important part of preventive healthcare for asymptomatic individuals at average risk for colorectal cancer. Following a negative Cologuard result, the [place] Cancer Society and U.S. Multi-Society Task Force screening guidelines recommend a Cologuard re-screening interval of 3 years. References: [place] Cancer [employer] Guideline for Colorectal Cancer Screening: https://www.cancer.org/cancer/wbxkv-kjxrws-equzzc/kfyujocld-xhtcpefaw-olfzkpe/ac s-rec ommendations.html.; Riccardo DK, Jennifer CR, Neal AmbrizK, Colorectal Cancer Screening: Recommendations for Physicians and Patients from the U.S. Multi-Society Task Force on Colorectal Cancer Screening , Am J Gastroenterology 2017; 112:5098-4773. TEST DESCRIPTION: Composite algorithmic analysis of stool [...] (Meli Petit al, N Engl J Med 2014;370(14):4157-9489.) Cologuard may produce a false negative or false positive result (no colorectal cancer or precancerous polyp present at colonoscopy follow up). A negative Cologuard test result does not guarantee the absence of CRC or advanced adenoma (pre-cancer). The current Cologuard screening interval is every 3 years. ([place] Cancer Society and U.S. Multi-Society Task Force). Cologuard performance data in a 10,000 patient pivotal study using colonoscopy as the reference method can be accessed at the following location: www.[employer]mo/results. Additional description of the Cologuard test process, warnings and precautions can be found at www.cologuard.com. Stool 01/13/2022 10:3 0 AM CDT 01/15/2022 7:09 PM CDT Lisa READ LAB BODY FLUIDS AND STOOLS ORDERABLES Final Result Performing Organization Address City/State/[facility] Co de Phone Number [email or web address] (CLIA #:[id number]) [place] [address] from Last 3 Months or Most Recently Relevant to Health Maintenance Insurance [facility] [id number] [facility] [id number] Care Teams Drag Car Racer Relationship Specialty Start Date End Date Lisa Trujillo PA [address] [address] PCP - General Internal Medicine 11/10/18
--- OUTSIDE RECORDS SUMMARY | 2024-12-07 10:47 | XMS_ITS | Clinical Summary ---
Author Organization [facility] [place] [address] [facility] Address [address] [place] [address] Care Team Providers Care Meringuer Name Role Phone Lisa Trujillo Primary Care Provider +1- [phone] Allergies No known active allergies Medications Zepbound [...] evaluation based on her age. Referral to [facility] in [place]. Tachycardia 11/05/2022 Assessment & Plan (08/31/2024 9:36 AM CDT): Well-controlled with the Bystolic 5. Refills sent to pharmacy Assessment & Plan (06/03/2023 11:59 AM SUPERVISOR BUFFING AND PASTING): Patient saw Dr. Norris. According to his [...] pharmacy Assessment & Plan (06/03/2023 11:59 AM SUPERVISOR BUFFING AND PASTING): ADD has been well controlled with the [...] pharmacy Assessment & Plan (05/24/2022 9:22 PM SUPERVISOR BUFFING AND PASTING): Patient's symptoms are well controlled with Vyvanse [...] 30mg Assessment & Plan (06/04/2020 12:28 AM SUPERVISOR BUFFING AND PASTING): Stable with lexapro and vyvanse. Refills to pharmacy Assessment & Plan (02/20/2020 8:16 PM CDT): Continue Vyvanse Assessment & Plan (08/26/2019 9:38 AM SUPERVISOR BUFFING AND PASTING): Stable with the Vyvanse 30mg Just filled. Call for refills as needed Assessment & Plan (07/22/2019 8:50 AM SUPERVISOR BUFFING AND PASTING): This is a significant, separately identifiable problem that was evaluated and managed on the same day as the wellness exam Continue with the Vyvanse 30mg daily. Encouarged daily Lexapro and will reassess in 4-6 weeks. Assessment & Plan (06/10/2019 9:04 AM SUPERVISOR BUFFING AND PASTING): Stable with the Vyvanse 30mg. See if [...] 24 Assessment & Plan (06/03/2023 9:14 AM SUPERVISOR BUFFING AND PASTING): Weight/BMI is in healthy range. Continue healthy [...] 05/23/20222022 Assessment & Plan (05/23/2022 2:59 PM SUPERVISOR BUFFING AND PASTING): Obesity is unchanged. Discussed the patient's BMI. The BMI is above average. BMI management plan is completed. BMI Follow-up includes: nutrition counseling, exercise counseling and education provided. BMI 31.0-31.9,adult 05/23/2022 10/02/19 23 Assessment & Plan (05/23/2022 3:00 PM SUPERVISOR BUFFING AND PASTING): Obesity is unchanged. Discussed the patient's BMI. [...] 04/11/2024 Assessment & Plan (06/29/2021 8:53 PM SUPERVISOR BUFFING AND PASTING): Patient to presume positive COVID/FLU until results are available and plan to self isolate for up to 10 days from the onset of sxs. Check COVID/FLU test thru [facility] collection site in [place]. If positive COVID, complete 10 day quarantine [...] water often. If needed, use a hand furniture finisher apprentice that contains at least 60% alcohol. Clean and disinfect frequently touched surfaces such as tables, doorknobs, countertops, etc daily. Avoid touching your eyes, nose, and mouth when possible. Onychomycosis 04/08/2021 04/11/2024 Assessment & Plan (04/08/2021 8:30 PM CDT): Patient has thickened nails that looks most consistent with onychomycosis. Discussed referral to national guard member for toes nail sample she declines at this point. Discussed treatment options including Lamisil versus his topicals versus monitoring. Reviewed that there is no guarantee any bees will work and help the result is a very slow process. She is interested in the [facility] topical solution. She is to apply [...] 21 Assessment & Plan (06/04/2020 12:28 AM SUPERVISOR BUFFING AND PASTING): Weight/BMI is in healthy range. Continue healthy lifestyle to maintain. BMI 26.0-26.9,adult 01/10/2020 05/29/20 20 Assessment & Plan (01/10/2020 4:33 PM CDT): Continue healthy lifestyle to continue healthy weight BMI 25.0-25.9,adult 08/26/2019 09/01/19 25 Assessment & Plan (04/11/2024 4:43 PM CDT): Weight/BMI is in healthy range. Continue healthy lifestyle to maintain. Assessment & Plan (08/26/2019 8:30 AM SUPERVISOR BUFFING AND PASTING): Weight/BMI is in healthy range. Continue healthy lifestyle to maintain. Annual physical exam 07/22/2019 020 Assessment & Plan (07/22/2019 8:49 AM SUPERVISOR BUFFING AND PASTING): Encouraged healthy lifestyle, good nutrition and exercise. [...] maintain. Assessment & Plan (07/22/2019 8:50 AM SUPERVISOR BUFFING AND PASTING): Weight/BMI is in healthy range. Continue healthy lifestyle to maintain. Assessment & Plan (06/10/2019 8:31 AM SUPERVISOR BUFFING AND PASTING): Weight/BMI is in healthy range. Continue healthy [...] weeks. Assessment & Plan (06/04/2020 12:28 AM SUPERVISOR BUFFING AND PASTING): Stable with lexapro and vyvanse. Refills to pharmacy Assessment & Plan (02/20/2020 8:16 PM CDT): Continue Lexapro Assessment & Plan (08/26/2019 9:38 AM SUPERVISOR BUFFING AND PASTING): Improved with the addition of the LExapro. Continue the same dose. Refills to pharmacy Assessment & Plan (07/22/2019 8:49 AM SUPERVISOR BUFFING AND PASTING): This is a significant, separately identifiable problem that was evaluated and managed on the same day as the wellness exam Take Lexapro hs and try to do consistently for 4-6 weeks/until followup. Will reassess at that time. Assessment & Plan (06/10/2019 9:04 AM SUPERVISOR BUFFING AND PASTING): Discussed options including starting SSRI. Reviewed risks, benefit, alternatives, side effects and proper use. Start lexapro 10mg one daily. F.u 6 weeks to reassess Other fatigue 06/10/2019 12/18/2021 Assessment & Plan (06/10/2019 9:05 AM SUPERVISOR BUFFING AND PASTING): Probably multifactorial. 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 Not on file [...] Vaccine (3 - season) 2024 11/02/2020, 10/05/2020 Colon Cancer Screening-DNA Stool 01/13/2025 01/13/2022 Influenza Vaccine (Season Ended) 2025 Regular Well Visit/Exam 18-64 03/30/2025 03/30/2024, 01/30/2023, [...] Read Routine (OP Routine) 05/19/2024 10:16 AM SUPERVISOR BUFFING AND PASTING Breast cancer screening by mammogram STOOL DNA COLOGUARD Routine 01/13/2022 10:30 AM CDT Colon cancer screening from Last 3 Months or Most Recently Relevant to Health Maintenance Results * Screening Mammogram Bilateral W Lelo (05/19/2024 10:16 AM SUPERVISOR BUFFING AND PASTING) Anatomical Region Laterality Modality Breast Bilateral Mammography Lisa READ IM MAMMO PROCEDURES Final Result * Stool DNA - Cologuard (01/13/2022 10:30 AM CDT) Stool DNA - Cologuard Negative Negative [facility] (CLIA #:[id number]) Comment: NEGATIVE TEST RESULT. A negative Cologuard [...] (Meli Petit al, N Engl J Med 2014;370(14):6253-5662) The normal value (reference range) for this assay is negative. COLOGUARD RE-SCREENING RECOMMENDATION: Periodic colorectal cancer screening is an important part of preventive healthcare for asymptomatic individuals at average risk for colorectal cancer. Following a negative Cologuard result, the [place] Cancer Society and U.S. Multi-Society Task Force screening guidelines recommend a Cologuard re-screening interval of 3 years. References: [place] Cancer Society Guideline for Colorectal Cancer Screening: https://www.cancer.org/cancer/xszjt-yfyzmy-nwbmfd/yuxrjpekf-stesgskkt-yzmuzok/ac s-rec ommendations.html.; Riccardo DK, Jennifer CR, Neal CUADRA, Colorectal Cancer Screening: Recommendations for Physicians and Patients from the U.S. Multi-Society Task Force on Colorectal Cancer Screening , Am J Gastroenterology 2017; 112:5766-5539. TEST DESCRIPTION: Composite algorithmic analysis of stool [...] screened with both Cologuard and colonoscopy. (Meli Garcia. et al, N Engl J Med 2014;370(14):2883-7179.) Cologuard may produce a false negative or false positive result (no colorectal cancer or precancerous polyp present at colonoscopy follow up). A negative Cologuard test result does not guarantee the absence of CRC or advanced adenoma (pre-cancer). The current Cologuard screening interval is every 3 years. ([place] Cancer Society and U.S. Multi-Society Task Force). Cologuard performance data in a 10,000 patient pivotal study using colonoscopy as the reference method can be accessed at the following location: www.[employer].com/results. Additional description of the Cologuard test process, warnings and precautions can be found at www.[employer].[email or web address]. Stool 01/13/2022 10:3 0 AM CDT 01/15/2022 7:09 PM CDT Lisa READ LAB BODY FLUIDS AND STOOLS ORDERABLES Final Result [facility] [employer] [facility] (CLIA #:[id number]) [place] [address] from Last 3 Months or Most Recently Relevant to Health Maintenance Insurance [facility] [id number] [facility] [id number] Care Teams Meringuer Relationship Specialty Start Date End Date Lisa Trujillo PA [address] [place] [address] PCP - General Internal Medicine 11/10/18
--- OUTSIDE RECORDS SUMMARY | 2024-12-07 10:47 | XMS_ITS | Encounter Summary ---
Author Organization [facility] Care Team Providers Care Airport Security Screener Name Role Phone Lisa Trujillo Primary Care Provider +1- [phone] Encounter Details Date Type Department Care Team (Latest Contact Info) Description 05/13/2018 Orders Only [facility] CLINCONV Provider, MD Jacob [address] [place] [id number] Social History Tobacco Use Types Packs/Day Years Used Date Smoking Tobacco: Never Assessed Comments Unknown Sex and Gender Information Value Date Recorded Sex Assigned at Not on file Legal Sex Female 11:48 AM SUPPLY COORDINATOR Gender Identity Not on file Sexual Orientation Not on file documented as of this encounter Plan of Treatment Not on file documented as of this encounter Procedures Procedure Name Priority Date/Time Associated Diagnosis Comments SCAN - PATHOLOGY 05/18/2018 12:0 0 AM SUPPLY COORDINATOR documented in this encounter Results * SCAN - PATHOLOGY (05/18/2018 12:00 AM SUPPLY COORDINATOR) Narrative 05/18/2018 12:00 AM SUPPLY COORDINATOR Ordered by an unspecified provider. Historical Provider Final Res ult documented in this encounter Visit Diagnoses Not on filedocumented in this encounter Additional Health Concerns Infection Onset Date Last Indicated Resolved Time COVID: Suspected 06/29/2021 06/29/2021 06/30/2021 7:45 AM SUPPLY COORDINATOR COVID19 06/29/2021 06/29/2021 07/09/2021 3:06 AM SUPPLY COORDINATOR COVID: Recovered Comment:Added based on recent COVID infection. 07/09/2021 07/11/202111/06/2021 3:05 AM C DT documented as of this encounter Care Teams Airport Security Screener Relationship Specialty Start Date End Date Lisa Trujillo PA [address] [address] PCP - General Internal Medicine 11/10/18 documented as of this encounter
--- OUTSIDE RECORDS SUMMARY | 2024-12-07 10:47 | XMS_ITS | Data Portability ---
Author Organization [facility] Address [address] [place] [address] [place] [address] Care Team Providers Care Emr Specialist Name Role Phone NATANAEL LONG Primary Care Provider Assessment Encounter Date Assessment Date Assessment LastModified by Organization Details LastModified Time 04/20/2024 04/20/2024 Annual gynecological exam performed. Patient will come back in a year unless there are new symptoms. [email or web address] Not available 04/01/2024 12:42:26 Plan of Treatment Reminders Order Date Submit Date Provider Last Modified By Organization Details Last Modified Time Details Appointments MED CHECK 2024 11:30A Celestino PRATHER MD Not available Not available Not available Lab None recorded. Referral None recorded. Procedures None recorded. Surgeries None recorded. Imaging MAMMO, screening , digital, bilateral 2023 024 [facility], [address], [place], [address], 10/24/2024 05:01:36 Medication Orders Zepbound 10 mg/0.5 mL subcutane ous pen injector 2024 025 [id number], [address], [place], [place], [id number], 11/23/2024 12:54:54 Zepbound 7.5 mg/0.5 mL subcutane ous pen injector 2023 024 [email or web address], [address], [place], [address], 04/07/2024 09:52:43 Patient TargetsNo targets recorded. Patient InstructionsNo instructions recorded. Reason for Referral None Reported. Results Created Date Observation Date Name Description Value Unit Range Abnormal Flag Note LastModifiedBy Organization Detail LastModifiedTime 04/29/20 24 04/29/2024 MAMMO , scree guillermo, bilat eral No observ ation record ed. [email or web address] [facility] [address], [place], [address], 05/04/2024 10:21:58 04/29/20 24 04/29/2024 MAMMO , scree guillermo, bilat eral No observ ation record ed. [email or web address] [facility] [address], [place], [address], 05/04/2024 10:22:22 05/18/20 24 05/18/2024 MAMMO , diagn ostic , digit al, unila teral No observ ation record ed. [facility] [address], [place], [address], 05/18/2024 21:45:40 Result Notes None recorded. Problems Name Problem SNOMED Code Status Onset Date Resolution Date Notes Provider Name and Address Organization Details Recorded Time Body mass index 25-29 - overweig 721042629 Completed 201606/06/2021 Body mass index (BMI) 26.0-26.9 , adult;Rec orded Elsewhere : No Locati on: [facility] So urce: EHR Chron ic: N Practic e ID: [id number] Bill able Time: 01:00:00 PM [facility] [place] - [facility] 14:46:44 Screenin g for malignan t neoplasm of rectum Completed 201406/06/2021 Encounter for screening for malignant neoplasm of rectum;Re corded Elsewhere : No Locati on: [facility] So urce: EHR Chron ic: N Practic e ID: 0001 Bill able Time: 08:45:00 AM [facility] 1 14:46:58 Mucous polyp of cervix 44983783 Completed 201306/06/2021 Cervical polyp;Rec orded Elsewhere : No Locati on: [facility] So urce: EHR Chron ic: N Practic e ID: 0001 Bill able Time: 03:00:00 PM [facility] 1 14:46:50 Menopaus e present [id number] Completed 201506/06/2021 Menopausa l and female climacter ic states;Re corded Elsewhere : No Locati on: [facility] So urce: EHR Chron ic: N Practic e ID: 0001 Bill able Time: 10:30:00 AM [facility] Thayer [facility] 14:46:[address] Concept Completed 201606/06/2021 Encntr for sap architect exam (general) (routine) w/o abn findings; Recorded Elsewhere : No Locati on: [facility] So urce: EHR Chron ic: N Practic e ID: 0001 Bill able Time: 01:00:00 PM [facility] 1 14:47:01 [facility] medical examinat ion Completed 201306/06/2021 Gynecolog ical Examinati on;Record ed Elsewhere : No Locati on: [facility] So urce: EHR Chron ic: N Practic e ID: 0001 Bill able Time: 01:45:00 PM [facility] [address] 14:47:[address] Concept Completed 201406/06/2021 Encntr for general adult medical exam w/o abnormal findings; Recorded Elsewhere : No Locati on: [facility] So urce: EHR Chron ic: N Practic e ID: 0001 Bill able Time: 08:45:00 AM [facility] Thayer [facility] 14:46:59 Evaluati on finding [id number] Completed 201706/06/2021 Oth abn and inconclus pasquale findings on dx imaging of breast;Re corded Elsewhere : No Locati on: [facility] So urce: EHR Chron ic: N Practic e ID: 0001 Bill able Time: 11:01:39 AM [facility] Th[facility] 14:46:46 Polyp of cervix [id number] Completed 201406/06/2021 Mucous polyp of cervix;Re corded Elsewhere : No Locati on: [facility] So urce: EHR Chron ic: N Practic e ID: 0001 Bill able Time: 08:45:00 AM [facility] 14:46:54 Screenin g for malignan t neoplasm of cervix Completed 201306/06/2021 Pap Smear;Pra ctice ID: 0001 [facility] 14:46:55 Problem Notes None recorded. Procedures Surgical History Date Name Laterality Status Provider Name and Address Organization Details Recorded Time 05/18/20 24 Date of Last Mammogram completed Flora Vitale [facility] 07/29/2024 12:34:57 10/18/19 23 Date of Last Pap Smear completed Maria A Harris [facility] 08/14/2023 13:16:25 05/25/20 20 Endometrial Biopsy completed Afua Russ CNM [address], [place], [address], [facility] 05/25/2020 11:51:28 05/25/20 20 endometrial biopsy completed Maria A Harris [facility] 05/25/2020 11:39:01 03/27/20 15 cervical polypectomy completed Maria A Harris [facility] 08/14/2023 13:18:22 06/23/19 15 Breast Biopsy completed [facility] 08/14/2023 13:26:35 06/23/19 04 surgical procedure on eye proper using laser completed [facility] 08/14/2023 13:18:05 06/23/18 99 ligation of bilateral fallopian tubes completed [facility] 05/03/2020 17:05:07 excision of basal cell carcinoma completed [facility] 05/03/2020 17:03:55 Imaging Results None recorded. Procedure Notes None recorded. Medical Equipment None [...] completed Not Available Not Available Not Available terbinafi ne HCl 250 mg tablet TAKE 1 TABLET BY MOUTH EVERY DAY active Not Available Not Available No t Available Vitamin D2 1,250 mcg (50,000 unit) capsule take 1 capsule by oral route every week 05/06 completed Prescrib ed Elio e: Yes Loca tion: [facility] M odify By: [email or web address] z Encoun ter DateTime : 03/10/20 14 01:45:00 PM Not [...] Available Not Available nebivolol 5 mg tablet active Not Available Not Available Not Available lisdexamf etamine 20 mg capsule TAKE 1 CAPSULE BY MOUTH EVERY MORNING active Not Available Not Available No t Available Brisdelle 7.5 mg capsule take 1 capsule by oral route every day at bedtime 06/06 completed Prescrib ed Elio e: No Locat ion: [facility] odify By: arcelia landrum DateTime : 05/06/20 10:30:00 AM Not Available Not Available Not [...] INJECT 10 MG UNDER THE SKIN WEEKLY 11/23 completed Not Available Not Available Not Available Zepbound 12.5 mg/0.5 mL subcutane ous pen injector Inject 12.5 mg by subcutan eous route. active Not Available Not Available No t Available Zepbound 7.5 mg/0.5 mL subcutane ous pen injector INJECT 7.5 MG EVERY WEEK UNDER THE SKIN 04/07 completed Not Available Not Available Not Available Vitals Date Recorded Body height Body mass index (BMI) Body weight Systolic blood pressure Diastolic blood pressure Provider Name and Address Organization Details Last Updated DateTime 07/29/2024 157.48 cm 25.4 kg/m2 28085.34 g 108 mm[Hg] 77 mm[Hg] [facility] 12:34:27 Date Recorded Body height Body mass index (BMI) Body weight Systolic blood pressure Diastolic blood pressure Provider Name and Address Organization Details Last Updated DateTime 11/23/2024 157.48 cm 25.1 kg/m2 23817.15 g 101 mm[Hg] 71 mm[Hg] [facility] 12:54:32 Date Recorded Body height Body mass index (BMI) Body weight Systolic blood pressure Diastolic blood pressure Provider Name and Address Organization Details Last Updated DateTime 01/15/2024 157.48 cm 26.7 kg/m2 26213.49 g 104 mm[Hg] 75 mm[Hg] Natalya Rankin [facility] 4 10:34:46 Date Recorded Body height Body mass index (BMI) Body weight Systolic blood pressure Diastolic blood pressure Provider Name and Address Organization Details Last Updated DateTime 04/20/2024 157.48 cm 25.9 kg/m2 73765.68 g 101 mm[Hg] 71 mm[Hg] Amaya Cotton [facility] 4 14:32:51 Date Recorded Body height Body mass index (BMI) Body weight Systolic blood pressure Diastolic blood pressure Provider Name and Address Organization Details Last Updated DateTime 04/27/2024 157.48 cm 26 kg/m2 06612.12 g 108 mm[Hg] 75 mm[Hg] Flora Vitale [facility] 10:33:48 Social History Question Answer Notes LastModified by Organizat ion Details LastModified Time Tobacco Smoking Status Never Smoker Melanie Jang fanny, [facility] 02/04/2023 11:17:23 Are You Blind Or Do You Have Difficulty Seeing? No [email or web address] Information n ot available 08/14/2023 In The 14 Days Before Symptom Onset, Have You Had Close Contact With A Laboratory-confirm ed COVID-19 While That Case Was Ill? No Information n ot available 10/17/2022 In The 14 Days Before Symptom Onset, Have You Had Close Contact With A Person Who Is Under Investigation For COVID-19 While That Person Was Ill? No Information not available 10/17/2022 Have You Been To An Area Known To Be High Risk For COVID-19? No Information not available 10/17/2022 Are You Deaf Or Do You Have Serious Difficulty Hearing? No [email or web address] Information not available 08/14/2023 What Type Of Diet Are You Following? REGULAR [email or web address] Information n ot available 08/14/2023 What Was The Date Of Your Most Recent Tobacco Screening? 08/14/2023 [email or web address] Information not available 08/14/2023 Do You Use Your Seat Belt Or Car Seat Routinely? Yes [email or web address] Information not available 08/14/2023 Do You Have Smoke And Carbon Monoxide Detectors In Your Home? Yes [email or web address] Information not available 08/14/2023 How Much Tobacco Do You Smoke? No [email or web address] Information not available 05/03/2020 Do You Use Sunscreen Routinely? Yes [email or web address] Information not available 08/14/2023 Do You Have Difficulty Walking Or Climbing Stairs? No [email or web address] Information not available 08/14/2023 Sex: Unknown Functional Status Question Answer Note LastModified by Organizat ion Details LastModified Time What is your level of alcohol consumption? Occasional [email or web address] Information not available 05/03/2020 Do you or have you ever used smokeless tobacco? Never used smokeless tobacco Information not available 02/04/2023 Are you able to walk? [email or web address] Information not available 08/14/2023 Are you able to care for yourself? Yes [email or web address] Information not available 08/14/2023 Do you have difficulty dressing or bathing? No [email or web address] Information not available 08/14/2023 Do you or have you ever used e-cigarettes or vape? Never used electronic cigarettes [email or web address] Information not available 02/04/2023 What is your exercise level? Occasional [email or web address] Information not available 05/03/2020 Mental Status Question Answer Note LastModified by Organization D etails LastModified Time Do you feel stressed (tense, restless, nervous, or anxious, or unable to sleep at night)? [id number] [email or web address] Information not available 08/14/2023 Family History Relationship Description Onset Age of this Age Resolved Age Notes LastModified by Organization Details LastModified Time Mother Malignant tumor of breast [email or web address] Not available 2022 11:23:38 Father Diabetes mellitus [email or web address] Not available 2022 11:23:38 Medical History Condition Response Allergies (Food, seasonal, environmental ) N Other Y Breast Cancer N Drug/Latex Allergies/Reactions N Blood Transfusion N Dermatologic Disorders N Lung Disease N [...] of Last Mammogram 05/18/2024 Date of LMP 11/09/2024 Was last menstrual period normal Y STIs/STDs [...] SNOMED-CT Code Diagnosis ICD10 Code Diagnosis Note [id number] Corrina Cagle [facility] [address] [address] 04/27/2020 10:41:33 04/27/2020 11:30:14 Gynecologic examination 93413148 Z01.419 Suggested Calcium with Vitamin D 1200-1500m g daily. Patient advised to get an annual flu shot in the fall and she could obtain at [facility] or [facility] clinic. Also to obtain TDap vaccinatio n [...] updated Mammo ordered No issues or concerns [id number] Afua Russ CNM [facility] [address],[place] [address] 05/25/2020 11:24:59 05/25/2020 12:47:05 Specimen with abnormal presence of endometrial cells 084118607 R87.619 [id number] Corrina Cagle [facility] [address],[place] [address] 06/06/2021 15:52:33 06/06/2021 16:39:33 Gynecologic examination 01263478 Z01.419 Suggested Calcium with Vitamin D 1200-1500m g daily. Patient advised to get an annual flu shot in the fall and she could obtain at [facility] or [facility] care clinic. Also to obtain TDap vaccinatio [...] completed in the past & was negative. [id number] Corrina Cagle , [facility] [address] [address] 10/17/2022 11:45:53 10/17/2022 14:15:22 Gynecologic examination 56355734 Z01.419 Z11.51 Suggested Calcium with Vitamin D 1200-1500m g daily. Patient advised to get an annual flu shot in the fall and she could obtain at [facility] or [facility] care clinic. Also to obtain TDap vaccinatio [...] Routine Labs PCPMammo ordered Screening mammography 24 652065 Z12.31 [id number] MD Loren Nicholas [address] [address] 02/04/2023 11:16:20 02/04/2023 12:54:20 Obesity 096212501 E66.9 This patient is a 52-year-ol d [...] Given precaution s, given dosing instructio ns [id number] MD Loren Nicholas [address] [address] 04/08/2023 11:46:30 04/08/2023 12:40:02 Obesity 944523572 E66.9 This patient is a 52-year-ol d [...] ce. More than 50% was counseling . [id number] Johnson Prather MD [facility] [address],[place] [address] 06/10/2023 12:27:40 06/10/2023 13:25:49 Obesity 092050364 E66.9 This patient is a 52-year-ol d [...] ce. More than 50% was counseling . [id number] Johnson Prather MD [facility] [address],[facility] [place] [address] 08/14/2023 12:21:03 08/14/2023 13:24:54 Obesity 426205314 E66.9 This patient is a 52-year-ol d [...] is very mindful of her diet. Obese 217794092 E66.9 [id number] Johnson Prather MD [facility] [address],[place] [address] 10/14/2023 09:53:33 10/15/2023 04:50:06 Obesity 471335432 E66.9 This patient is a 52-year-ol d [...] She is very mindful of her diet. [id number] Johnson Prather MD [facility] [address],[place] [address] 01/15/2024 10:12:30 01/15/2024 11:31:09 Obesity 025863686 E66.9 This patient is a 52-year-ol d [...] She is very mindful of her diet. [id number] Johnson Prather MD [facility] [address] [address] 04/20/2024 14:26:01 04/20/2024 15:15:31 Gynecologic examination 01345032 Z01.419 Annual gynecologi samantha exam performed. Patient [...] STI testing - declined Screening mammography 24 604202 Z12.31 Pt to schedule; order given. [id number] Johnson Prather MD [facility] [address],[place] [address] 04/27/2024 10:26:05 04/27/2024 11:11:46 Obesity 800243154 E66.9 This patient is a 52-year-ol d [...] patient is taking 10 mg oif zepbound [id number] Johnson Prather MD [facility] [address],[facility] [place] [address] 07/29/2024 12:16:38 07/29/2024 17:04:40 Obesity 323256797 E66.9 This patient is a 52-year-ol d [...] patient is taking 10 mg oif zepbound [id number] Johnson Prather MD [facility] [address] [address] 11/23/2024 12:29:42 11/29/2024 16:49:56 Health Concerns Section Related Observation LastModified by Organization Detai ls LastModified Time None Recorded Concern Status LastModified by Organization Details LastModified Time None Recorded Advance Directives Directive None Recorded Payers Insurance Date Sequence Insurance Name Policy Number Policy Macias Covered Member ID Macias Member ID Guarantor Name 11/21/2024 1 [employer] [facility] BENEFITS PLAN Maria A Natalia [id number] OI Maria A Natalia 02/04/2023 1 [employer] [facility] Maria A Natalia [id number] Maria A Natalia 04/26/2024 1 [employer] Maria A Natalia [id number] OI Maria A Natalia Notes Date Note Type Note Provider Name and Address Organization Details Recorded Time 01/15/2024 text/html This patient is a 52-year-old [...] diet. Johnson Prather MD [address], [place], [address], [facility] 01/15/2024 11:17:52 04/20/2024 text/html Annual GYNReport [...] woman exam. Patient denies concerns today. MORA HAYES, DAVID [address], [place], [address], [facility] 04/20/2024 15:01:44 04/27/2024 text/html This patient [...] zepbound Johnson Prather MD [address], [place], [address], [facility] 04/27/2024 11:07:15 07/29/2024 text/html This patient [...] mg oif zepbound Johnson Prather MD [address], [place], [address], [facility] 07/29/2024 16:59:33 OBGyn Episode Ob Episode Information Episode Created Date Number of Fetuses Patient Bloodtype Patient rh Status Prepregnancy Weight lbs Domestic Partner Domestic Partner Phone Father Name Official Greeter Status 05/03/20 20 1 CLOSED Fetus Data [...] Domestic Partner Domestic Partner Phone Father Name Official Greeter Status 05/03/20 1 CLOSED Fetus Data First [...] Domestic Partner Domestic Partner Phone Father Name Official Greeter Status 05/03/20 20 1 CLOSED Fetus Data First Name Last Name Admitted to NICU Weight (g) Sex Living Outcome Pediatric Complications Fetus ID Race Codes Race Delivery Type 2834.95 F Full Term 6044 Vaginal Delivery Carmine Calculation Initial Carmine Date Initial Exam Date Initial Exam Provider Initial Ultrasound Date Last Menstrual Period Date Ultra Sound Weeks Gestation 0 Eighteen To Twenty Week Camrine Update Ultra Sound Date Fundal Height At [...]
== END 2024-12-07 09:46 | disposition home or self-care (01) ==
LOC: ANHLAB 09:47
PROVIDERS: PCP Physician Assistant; Visit Provider Podiatrist Foot & Ankle Surgery
DX: B35.1 Tinea unguium (principal)
CPT/HCPCS: 36415; 84450; 84460

== ENCOUNTER 2025-03-29 09:35 | Outpatient (CLI) | payer OTHER, SELFPAY ==
--- OUTSIDE RECORDS SUMMARY | 2025-03-29 10:09 | XMS_ITS | Encounter Summary ---
Author Organization [facility] Care Team Providers Care Inlayer Name Role Phone Lisa Trujillo Primary Care Provider +1- [phone] Encounter Details Date Type Department Care Team (Latest Contact Info) Description 06/03/2018 Orders Only [facility] CLINCONV Provider, MD Jacob [address] [place] [address] Social History Tobacco Use Types Packs/Day Years Used Date Smoking Tobacco: Never Assessed Comments Unknown Sex and Gender Information Value Date Recorded Sex Assigned at Not on file Legal Sex Female 11:48 AM ENTERPRISE ANALYST Gender Identity Not on file Sexual Orientation Not on file documented as of this encounter Plan of Treatment Not on file documented as of this encounter Procedures Procedure Name Priority Date/Time Associated Diagnosis Comments SCAN - PATHOLOGY 06/08/2018 12:0 0 AM ENTERPRISE ANALYST documented in this encounter Results * SCAN - PATHOLOGY (06/08/2018 12:00 AM ENTERPRISE ANALYST) Narrative 06/08/2018 12:00 AM ENTERPRISE ANALYST Ordered by an unspecified provider. Historical Provider Final Res ult documented in this encounter Visit Diagnoses Not on filedocumented in this encounter Additional Health Concerns Infection Onset Date Last Indicated Resolved Time COVID: Suspected 06/29/2021 06/29/2021 06/30/2021 7:45 AM ENTERPRISE ANALYST COVID19 06/29/2021 06/29/2021 07/09/2021 3:06 AM ENTERPRISE ANALYST COVID: Recovered Comment:Added based on recent COVID infection. 07/09/2021 07/11/202111/06/2021 3:05 AM C DT documented as of this encounter Care Teams Inlayer Relationship Specialty Start Date End Date Lisa Trujillo PA [address] [address] PCP - General Internal Medicine 11/10/18 documented as of this encounter
--- OUTSIDE RECORDS SUMMARY | 2025-03-29 10:09 | XMS_ITS | Clinical Summary ---
Author Organization [facility] Address [address] [place] [address] Care Team Providers Care Property Disposal Officer Name Role Phone Non-Staff, Provider Primary [...] on file Legal Sex Female 11:00 PM HAM PASSER Gender Identity Not on file Sexual Orientation [...] 11:43 AM CDT Height 160 cm (5' 3) 03/02/2024 11:43 AM CDT Body Mass Index [...] Every 5 Years 2002 Mammogram Screening 2012 Pneumococcal Vaccine: 50+ Years (1 of 1 - PCV) 2022 Zoster Vaccines (1 of 2) 2022 COVID-19 Vaccine (3 - 2024-2 6 season) 2025 11/02/2020, 10/05/2020 Influenza Adult (#1) 2025 Cervical Cancer Screening Pa p Smear (Age [...] patient's age to complete this topic Insurance [employer] [facility] Care Teams Property Disposal Officer Relationship Specialty Start Date End Date Non-Staff, Provider PCP - General UNKNOWN PHYSICIAN SPECIALTY 03/15/24
--- OUTSIDE RECORDS SUMMARY | 2025-03-29 10:09 | XMS_ITS | Encounter Summary ---
Author Organization [facility] Care Team Providers Care Scheduling Assistant Name Role Phone Lisa Trujillo Primary Care Provider +1- [phone] Encounter Details Date Type Department Care Team (Latest Contact Info) Description 06/01/2018 Orders Only [facility] CLINCONV Provider, MD Jacob [address] [place] [address] Social History Tobacco Use Types Packs/Day Years Used Date Smoking Tobacco: Never Assessed Comments Unknown Sex and Gender Information Value Date Recorded Sex Assigned at Not on file Legal Sex Female 11:48 AM BUTT PRESSER Gender Identity Not on file Sexual Orientation Not on file documented as of this encounter Plan of Treatment Not on file documented as of this encounter Procedures Procedure Name Priority Date/Time Associated Diagnosis Comments SCAN - PATHOLOGY 06/03/2018 12:0 0 AM BUTT PRESSER documented in this encounter Results * SCAN - PATHOLOGY (06/03/2018 12:00 AM BUTT PRESSER) Narrative 06/03/2018 12:00 AM BUTT PRESSER Ordered by an unspecified provider. Historical Provider Final Res ult documented in this encounter Visit Diagnoses Not on filedocumented in this encounter Additional Health Concerns Infection Onset Date Last Indicated Resolved Time COVID: Suspected 06/29/2021 06/29/2021 06/30/2021 7:45 AM BUTT PRESSER COVID19 06/29/2021 06/29/2021 07/09/2021 3:06 AM BUTT PRESSER COVID: Recovered Comment:Added based on recent COVID infection. 07/09/2021 07/11/202111/06/2021 3:05 AM C DT documented as of this encounter Care Teams Scheduling Assistant Relationship Specialty Start Date End Date Lisa Trujillo PA [address] [address] PCP - General Internal Medicine 11/10/18 documented as of this encounter
--- OUTSIDE RECORDS SUMMARY | 2025-03-29 10:09 | XMS_ITS | Encounter Summary ---
Author Organization [facility] Healthcare Address [address] [place] [address] Care Team Providers Care Jointer Operator Name Role Phone Lisa Trujillo Primary Care Provider [phone]- [phone] Encounter Details Date Type Department Care Team (Late st Contact Info) Description 12/07/2024 Orders Only [facility] [facility] [address] [place] [id number] Scanning, Provider Social History Tobacco Use Types Packs/Day Years Used Date Smoking Tobacco: Never Smokeless Tobacco: Never Alcohol Use Standard Drinks/Week Comments Never 0 [...] on file Legal Sex Female 11:48 AM TELECOM ENGINEER Gender Identity Not on file Sexual Orientation Not on file 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 file Not on file Not on file documented as of this encounter Plan of Treatment Not on file documented as of this encounter Procedures Procedure Name Priority Date/Time Associated Diagnosis Comments SCAN - LABS 12/07/2024 documented in this encounter Results * SCAN - LABS (12/07/2024) us Provider Scanning Final Result documented in this encounter Visit Diagnoses Not on filedocumented in this encounter Care Teams Jointer Operator Relationship Specialty Start Date End Date Lisa Trujillo PA [address] [facility] [address] [place] [address] PCP - General Internal Medicine 11/10/18 documented as of this encounter
--- OUTSIDE RECORDS SUMMARY | 2025-03-29 10:09 | XMS_ITS | Clinical Summary ---
Author Organization [facility] [place] [address] [facility] Address [address] [place] [address] Care Team Providers Care Community Midwife Name Role Phone Lisa Trujillo Primary Care Provider +1- [phone] Allergies No known active allergies Medications Zepbound [...] by mouth every morning 30 capsule 5 03/25/20 25 Discontinu ed(Reorder ) Active Problems Problem [...] evaluation based on her age. Referral to [facility] in [place]. Tachycardia 11/05/2022 Assessment & Plan (08/31/2024 9:36 AM CDT): Well-controlled with the Bystolic 5. Refills sent to pharmacy Assessment & Plan (06/03/2023 11:59 AM ENGAGEMENT ENGINEER): Patient saw Dr. Norris. According to his [...] pharmacy Assessment & Plan (06/03/2023 11:59 AM ENGAGEMENT ENGINEER): ADD has been well controlled with the [...] pharmacy Assessment & Plan (05/24/2022 9:22 PM ENGAGEMENT ENGINEER): Patient's symptoms are well controlled with Vyvanse [...] 30mg Assessment & Plan (06/04/2020 12:28 AM ENGAGEMENT ENGINEER): Stable with lexapro and vyvanse. Refills to pharmacy Assessment & Plan (02/20/2020 8:16 PM CDT): Continue Vyvanse Assessment & Plan (08/26/2019 9:38 AM ENGAGEMENT ENGINEER): Stable with the Vyvanse 30mg Just filled. Call for refills as needed Assessment & Plan (07/22/2019 8:50 AM ENGAGEMENT ENGINEER): This is a significant, separately identifiable problem that was evaluated and managed on the same day as the wellness exam Continue with the Vyvanse 30mg daily. Encouarged daily Lexapro and will reassess in 4-6 weeks. Assessment & Plan (06/10/2019 9:04 AM ENGAGEMENT ENGINEER): Stable with the Vyvanse 30mg. See if [...] 24 Assessment & Plan (06/03/2023 9:14 AM ENGAGEMENT ENGINEER): Weight/BMI is in healthy range. Continue healthy [...] 05/23/20222022 Assessment & Plan (05/23/2022 2:59 PM ENGAGEMENT ENGINEER): Obesity is unchanged. Discussed the patient's BMI. The BMI is above average. BMI management plan is completed. BMI Follow-up includes: nutrition counseling, exercise counseling and education provided. BMI 31.0-31.9,adult 05/23/2022 10/02/19 23 Assessment & Plan (05/23/2022 3:00 PM ENGAGEMENT ENGINEER): Obesity is unchanged. Discussed the patient's BMI. [...] 04/11/2024 Assessment & Plan (06/29/2021 8:53 PM ENGAGEMENT ENGINEER): Patient to presume positive COVID/FLU until results are available and plan to self isolate for up to 10 days from the onset of sxs. Check COVID/FLU test thru [facility] collection site in [place]. If positive COVID, complete 10 day quarantine [...] water often. If needed, use a hand railroad cook that contains at least 60% alcohol. Clean and disinfect frequently touched surfaces such as tables, doorknobs, countertops, etc daily. Avoid touching your eyes, nose, and mouth when possible. Onychomycosis 04/08/2021 04/11/2024 Assessment & Plan (04/08/2021 8:30 PM CDT): Patient has thickened nails that looks most consistent with onychomycosis. Discussed referral to trust operations assistant for toes nail sample she declines at this point. Discussed treatment options including Lamisil versus his topicals versus monitoring. Reviewed that there is no guarantee any bees will work and help the result is a very slow process. She is interested in the [facility] topical solution. She is to apply [...] 21 Assessment & Plan (06/04/2020 12:28 AM ENGAGEMENT ENGINEER): Weight/BMI is in healthy range. Continue healthy lifestyle to maintain. BMI 26.0-26.9,adult 01/10/2020 05/29/20 20 Assessment & Plan (01/10/2020 4:33 PM CDT): Continue healthy lifestyle to continue healthy weight BMI 25.0-25.9,adult 08/26/2019 09/01/19 25 Assessment & Plan (04/11/2024 4:43 PM CDT): Weight/BMI is in healthy range. Continue healthy lifestyle to maintain. Assessment & Plan (08/26/2019 8:30 AM ENGAGEMENT ENGINEER): Weight/BMI is in healthy range. Continue healthy lifestyle to maintain. Annual physical exam 07/22/2019 020 Assessment & Plan (07/22/2019 8:49 AM ENGAGEMENT ENGINEER): Encouraged healthy lifestyle, good nutrition and exercise. [...] maintain. Assessment & Plan (07/22/2019 8:50 AM ENGAGEMENT ENGINEER): Weight/BMI is in healthy range. Continue healthy lifestyle to maintain. Assessment & Plan (06/10/2019 8:31 AM ENGAGEMENT ENGINEER): Weight/BMI is in healthy range. Continue healthy [...] weeks. Assessment & Plan (06/04/2020 12:28 AM ENGAGEMENT ENGINEER): Stable with lexapro and vyvanse. Refills to pharmacy Assessment & Plan (02/20/2020 8:16 PM CDT): Continue Lexapro Assessment & Plan (08/26/2019 9:38 AM ENGAGEMENT ENGINEER): Improved with the addition of the LExapro. Continue the same dose. Refills to pharmacy Assessment & Plan (07/22/2019 8:49 AM ENGAGEMENT ENGINEER): This is a significant, separately identifiable problem that was evaluated and managed on the same day as the wellness exam Take Lexapro hs and try to do consistently for 4-6 weeks/until followup. Will reassess at that time. Assessment & Plan (06/10/2019 9:04 AM ENGAGEMENT ENGINEER): Discussed options including starting SSRI. Reviewed risks, benefit, alternatives, side effects and proper use. Start lexapro 10mg one daily. F.u 6 weeks to reassess Other fatigue 06/10/2019 12/18/2021 Assessment & Plan (06/10/2019 9:05 AM ENGAGEMENT ENGINEER): Probably multifactorial. 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 file Not on file Not [...] 1990 Zoster Vaccine (1 of 2) 2022 Colon Cancer Screening-DNA Stool 01/13/2025 01/13/2022 Covid-19 Vaccine (3 - season) 2025 11/02/2020, 10/05/2020 Influenza Vaccine (#1) 2025 Regular Well Visit/Exam 18-64 03/30/2025 03/30/2024, [...] Read Routine (OP Routine) 05/19/2024 10:16 AM ENGAGEMENT ENGINEER Breast cancer screening by mammogram STOOL DNA COLOGUARD Routine 01/13/2022 10:30 AM CDT Colon cancer screening from Last 3 Months or Most Recently Relevant to Health Maintenance Results * Screening Mammogram Bilateral W Lelo (05/19/2024 10:16 AM ENGAGEMENT ENGINEER) Anatomical Region Laterality Modality Breast Bilateral Mammography Lisa READ IM MAMMO PROCEDURES Final Result * Stool DNA - Cologuard (01/13/2022 10:30 AM CDT) Stool DNA - Cologuard Negative Negative [facility] [employer] (CLIA #:[id number]) Comment: NEGATIVE TEST RESULT. A negative Cologuard [...] (Meli Petit al, N Engl J Med 2014;370(14):1385-3996) The normal value (reference range) for this assay is negative. COLOGUARD RE-SCREENING RECOMMENDATION: Periodic colorectal cancer screening is an important part of preventive healthcare for asymptomatic individuals at average risk for colorectal cancer. Following a negative Cologuard result, the [place] [employer] Society and U.S. Multi-Society Task Force screening guidelines recommend a Cologuard re-screening interval of 3 years. References: [place] [employer] Guideline for Colorectal Cancer Screening: https://www.cancer.org/cancer/thvnq-omqhxl-vlapsz/ieogvcovc-yyfzietjr-fhxqfoy/ac s-rec ommendations.html.; Riccardo DK, Jennifer CR, Neal CUADRA, Colorectal Cancer Screening: Recommendations for Physicians and Patients from the U.S. Multi-Society Task Force on Colorectal Cancer Screening , Am J Gastroenterology 2017; 112:2543-6383. TEST DESCRIPTION: Composite algorithmic analysis of stool [...] Garcia. et al, N Engl J Med 2014;370(14):5484-8502.) Cologuard may produce a false negative or false positive result (no colorectal cancer or precancerous polyp present at colonoscopy follow up). A negative Cologuard test result does not guarantee the absence of CRC or advanced adenoma (pre-cancer). The current Cologuard screening interval is every 3 years. ([place] [employer] Society and U.S. Multi-Society Task Force). Cologuard performance data in a 10,000 patient pivotal study using colonoscopy as the reference method can be accessed at the following location: www.[employer].com/results. Additional description of the Cologuard test process, warnings and precautions can be found at www.[employer].com. Stool 01/13/2022 10:3 0 AM CDT 01/15/2022 7:09 PM CDT Lisa READ LAB BODY FLUIDS AND STOOLS ORDERABLES Final Result [facility] (CLIA #:[id number]) [place] [address] from Last 3 Months or Most Recently Relevant to Health Maintenance Insurance [employer] [id number] [facility] [employer] [id number] Care Teams Community Midwife Relationship Specialty Start Date End Date Lisa Trujillo PA [address] [facility] [address] [place] [address] PCP - General Internal Medicine 11/10/18
--- OUTSIDE RECORDS SUMMARY | 2025-03-29 10:09 | XMS_ITS | Encounter Summary ---
Author Organization [facility] Care Team Providers Care Fraternity House Cook Name Role Phone Lisa Trujillo Primary Care Provider +1- [phone] Encounter Details Date Type Department Care Team (Latest Contact Info) Description 05/13/2018 Orders Only [facility] Provider, MD Jacob [address] [place] [id number] Social History Tobacco Use Types Packs/Day Years Used Date Smoking Tobacco: Never Assessed Comments Unknown Sex and Gender Information Value Date Recorded Sex Assigned at Not on file Legal Sex Female 11:48 AM GATE AGENT Gender Identity Not on file Sexual Orientation Not on file documented as of this encounter Plan of Treatment Not on file documented as of this encounter Procedures Procedure Name Priority Date/Time Associated Diagnosis Comments SCAN - PATHOLOGY 05/18/2018 12:0 0 AM GATE AGENT documented in this encounter Results * SCAN - PATHOLOGY (05/18/2018 12:00 AM GATE AGENT) Narrative 05/18/2018 12:00 AM GATE AGENT Ordered by an unspecified provider. Historical Provider Final Res ult documented in this encounter Visit Diagnoses Not on filedocumented in this encounter Additional Health Concerns Infection Onset Date Last Indicated Resolved Time COVID: Suspected 06/29/2021 06/29/2021 06/30/2021 7:45 AM GATE AGENT COVID19 06/29/2021 06/29/2021 07/09/2021 3:06 AM GATE AGENT COVID: Recovered Comment:Added based on recent COVID infection. 07/09/2021 07/11/202111/06/2021 3:05 AM C DT documented as of this encounter Care Teams Fraternity House Cook Relationship Specialty Start Date End Date Lisa Trujillo PA [address] [address] PCP - General Internal Medicine 11/10/18 documented as of this encounter
[2025-03-29 10:40] LABS: Alanine Aminotransferase 25 U/L (6-35); Aspartate Amino Transferase 26 U/L (14-36)
== END 2025-03-29 09:36 | disposition home or self-care (01) ==
LOC: ANHLAB 09:37
PROVIDERS: PCP Physician Assistant; Visit Provider Podiatrist Foot & Ankle Surgery
DX: B35.1 Tinea unguium (principal)
CPT/HCPCS: 36415; 84450; 84460

== ENCOUNTER 2025-05-17 13:18 | Outpatient (CLI) | payer OTHER, SELFPAY ==
--- NOTE | ~2025-05-17 | MM_ITS ---
EXAMINATION: MM screening keshia BI w anisa HISTORY: Screening TECHNIQUE: Craniocaudal and mediolateral oblique 3-D tomosynthesis images were obtained and synthetic 2-D images were generated. CAD analysis was submitted and interpreted. COMPARISON: Comparison to multiple prior studies sequentially, with oldest reviewed study dated 06/09/2020. BREAST PARENCHYMAL COMPOSITION: Dense: The breasts are heterogeneously dense, which may obscure small masses FINDINGS: . There is new focal asymmetry in the upper outer quadrant of the right breast. There is developing asymmetry in the upper outer quadrant of the left breast, middle third. There are no suspicious calcifications. There is developing asymmetry medially in the left breast on CC view. IMPRESSION: 1. Developing bilateral breast asymmetries. 2. Additional mammographic views and possible breast ultrasound are recommended. BI-RADS Category 0: Incomplete: Needs additional imaging evaluation. Reviewed, dictated and finalized at location O. OWNER ASSOCIATION MANAGER IMPRESSION: 1. Developing bilateral breast asymmetries. 2. Additional mammographic views and possible breast ultrasound are recommended . BI-RADS Category 0: Incomplete: Needs additional imaging evaluation.
--- OUTSIDE RECORDS SUMMARY | 2025-05-17 14:56 | XMS_ITS | Clinical Summary ---
Author Organization [facility] Address [address] [place] [address] Care Team Providers Care Manufacturing Quality Inspector Name Role Phone Non-Staff, Provider Primary Care [...] on file Legal Sex Female 11:00 PM FIRE BOSS Gender Identity Not on file Sexual Orientation [...] Cervical Cancer Screening wi th HPV 10/17/2025 Hepatitis A Vaccines Aged Out No long er eligible based on patient's age to complete this topic Meningococcal B Vaccine Aged Out No l onger eligible based on patient's age to complete this topic Meningococcal Vaccine Aged Out No jonna sheridan eligible based on patient's age to complete this topic RSV Immunizations Under 20 Months Aged Out No longer eligible b ased on patient's age to complete this topic Insurance [employer] [facility] Care Teams Manufacturing Quality Inspector Relationship Specialty Start Date End Date Non-Staff, Provider PCP - General UNKNOWN PHYSICIAN SPECIALTY 03/15/24
--- OUTSIDE RECORDS SUMMARY | 2025-05-17 14:56 | XMS_ITS | Clinical Summary ---
Author Organization [facility] [place] [address] [facility] Address [address] [place] [address] Care Team Providers Care Gang Miner Name Role Phone Lisa Trujillo Primary Care Provider [phone]- [phone] Allergies No known active allergies Medications Zepbound [...] by mouth every morning 30 capsule 5 04/29/20 25 Discontinu ed(Reorder ) Active Problems Problem Noted Date Diagnosed Date BMI 24.0-24.9, adult 08/31/2024 Assessment & Plan (04/05/2025 9:10 AM CDT): Weight/BMI is in healthy range. Continue healthy lifestyle to maintain. Assessment & Plan (08/31/2024 9:37 AM CDT): [...] evaluation based on her age. Referral to [facility] in [place]. Tachycardia 11/05/2022 Assessment & Plan (08/31/2024 9:36 AM CDT): Well-controlled with the Bystolic 5. Refills sent to pharmacy Assessment & Plan (06/03/2023 11:59 AM DERRICK BUILDER): Patient saw Dr. Norris. According to his [...] pharmacy Assessment & Plan (06/03/2023 11:59 AM DERRICK BUILDER): ADD has been well controlled with the [...] pharmacy Assessment & Plan (05/24/2022 9:22 PM DERRICK BUILDER): Patient's symptoms are well controlled with Vyvanse [...] 30mg Assessment & Plan (06/04/2020 12:28 AM DERRICK BUILDER): Stable with lexapro and vyvanse. Refills to pharmacy Assessment & Plan (02/20/2020 8:16 PM CDT): Continue Vyvanse Assessment & Plan (08/26/2019 9:38 AM DERRICK BUILDER): Stable with the Vyvanse 30mg Just filled. Call for refills as needed Assessment & Plan (07/22/2019 8:50 AM DERRICK BUILDER): This is a significant, separately identifiable problem that was evaluated and managed on the same day as the wellness exam Continue with the Vyvanse 30mg daily. Encouarged daily Lexapro and will reassess in 4-6 weeks. Assessment & Plan (06/10/2019 9:04 AM DERRICK BUILDER): Stable with the Vyvanse 30mg. See if [...] 24 Assessment & Plan (06/03/2023 9:14 AM DERRICK BUILDER): Weight/BMI is in healthy range. Continue healthy [...] and education provided. BMI 31.0-31.9,adult 10/01/2022 11/06/19 Assessment & Plan (10/01/2022 11:25 PM CDT): [...] 05/23/20222022 Assessment & Plan (05/23/2022 2:59 PM DERRICK BUILDER): Obesity is unchanged. Discussed the patient's BMI. The BMI is above average. BMI management plan is completed. BMI Follow-up includes: nutrition counseling, exercise counseling and education provided. BMI 31.0-31.9,adult 05/23/2022 10/02/19 23 Assessment & Plan (05/23/2022 3:00 PM DERRICK BUILDER): Obesity is unchanged. Discussed the patient's BMI. [...] 04/11/2024 Assessment & Plan (06/29/2021 8:53 PM DERRICK BUILDER): Patient to presume positive COVID/FLU until results are available and plan to self isolate for up to 10 days from the onset of sxs. Check COVID/FLU test thru [facility] collection site in [place]. If positive COVID, complete 10 day quarantine [...] water often. If needed, use a hand teenage babysitter that contains at least 60% alcohol. Clean and disinfect frequently touched surfaces such as tables, doorknobs, countertops, etc daily. Avoid touching your eyes, nose, and mouth when possible. Onychomycosis 04/08/2021 04/11/2024 Assessment & Plan (04/08/2021 8:30 PM CDT): Patient has thickened nails that looks most consistent with onychomycosis. Discussed referral to muff winder for toes nail sample she declines at this point. Discussed treatment options including Lamisil versus his topicals versus monitoring. Reviewed that there is no guarantee any bees will work and help the result is a very slow process. She is interested in the [facility] topical solution. She is to apply [...] 21 Assessment & Plan (06/04/2020 12:28 AM DERRICK BUILDER): Weight/BMI is in healthy range. Continue healthy lifestyle to maintain. BMI 26.0-26.9,adult 01/10/2020 05/29/20 20 Assessment & Plan (01/10/2020 4:33 PM CDT): Continue healthy lifestyle to continue healthy weight BMI 25.0-25.9,adult 08/26/2019 09/01/19 25 Assessment & Plan (04/11/2024 4:43 PM CDT): Weight/BMI is in healthy range. Continue healthy lifestyle to maintain. Assessment & Plan (08/26/2019 8:30 AM DERRICK BUILDER): Weight/BMI is in healthy range. Continue healthy lifestyle to maintain. Annual physical exam 07/22/2019 020 Assessment & Plan (07/22/2019 8:49 AM DERRICK BUILDER): Encouraged healthy lifestyle, good nutrition and exercise. [...] maintain. Assessment & Plan (07/22/2019 8:50 AM DERRICK BUILDER): Weight/BMI is in healthy range. Continue healthy lifestyle to maintain. Assessment & Plan (06/10/2019 8:31 AM DERRICK BUILDER): Weight/BMI is in healthy range. Continue healthy [...] weeks. Assessment & Plan (06/04/2020 12:28 AM DERRICK BUILDER): Stable with lexapro and vyvanse. Refills to pharmacy Assessment & Plan (02/20/2020 8:16 PM CDT): Continue Lexapro Assessment & Plan (08/26/2019 9:38 AM DERRICK BUILDER): Improved with the addition of the LExapro. Continue the same dose. Refills to pharmacy Assessment & Plan (07/22/2019 8:49 AM DERRICK BUILDER): This is a significant, separately identifiable problem that was evaluated and managed on the same day as the wellness exam Take Lexapro hs and try to do consistently for 4-6 weeks/until followup. Will reassess at that time. Assessment & Plan (06/10/2019 9:04 AM DERRICK BUILDER): Discussed options including starting SSRI. Reviewed risks, benefit, alternatives, side effects and proper use. Start lexapro 10mg one daily. F.u 6 weeks to reassess Other fatigue 06/10/2019 12/18/2021 Assessment & Plan (06/10/2019 9:05 AM DERRICK BUILDER): Probably multifactorial. Check labs and followup to re-evaluate Will see if he trends toward hypoglycemia with her A1c. Encounters Date Type Department Care Team Description 04/19/2025 Results Follow-Up [facility] [address] [place] [address] Lisa Trujillo PA Stool DNA - Cologuard 04/05/2025 9:00 AM CDT Office Visit [facility] [address] [place] [address] Lisa Trujillo PA Annual physical exam (Primary Dx); Attention deficit disorder (ADD) without hyperactivity; Tachycardia; BMI 24.0-24.9, adult; Mixed hyperlipidemia; Perimenopausal vasomotor symptoms; Vitamin D deficiency; Breast cancer screening by mammogram; Immunity status testing; Fatigue, unspecified type; Diabetes mellitus screening from Last 3 Months Immunizations Immunization Administration Dates Next Due Influenza LAIV (Nasal) 06/03/2023(Deferred: Michelle ent Refused) Influenza, Unspecified 04/05/2025(Deferr ed: Patient Refused),06/23/2024(Deferred: Patient Refused),06/03/2023(Deferred: Patient Refused),07/24/2022(Deferred: Patient Refused),07/24/2021(Deferred: Patient [...] drink = 0.6 oz pur e alcohol) PHQ-2 Answer Date Recorded PHQ-2 Total Score (If total score is 3 or more points, staff should administer the PHQ-9) 0 04/05/2025 AUDIT-C Answer Date Recorded Q1: How often do you have a drink containing alcohol? Never 04/05/2025 Q2: How many drinks containi ng alcohol do you have on a typical day when you are drinking? Patient does not drink Q3: How often do you have si x or more drinks on one occasion? 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 Not on file Not on file Last Filed Vital Signs Vital Sign Reading Time Taken Comments Blood Pressure 102/68 04/05/2025 9:04 AM CDT Pulse 90 04/05/2025 9:04 AM CDT Temperature 37.2 C (98.9 F) 04/05/2025 9:04 AM CDT Respiratory Rate 16 11/20/2023 9:04 AM CDT Oxygen Saturation 99% 04/05/2025 9:04 AM CDT Inhaled Oxygen Concentration - - Weight 63.9 kg (140 lb 14.4 oz) 04/05/2025 9:04 AM CDT Height 160 cm (5' 3) 04/05/2025 9:04 AM CDT Body Mass Index 24.96 04/05/2025 9:04 AM CDT Plan of Treatment Health Maintenance Due Date Last Done Comments Cervical Cancer Screening 1970 Hepatitis C Screening 1972 DTaP/Tdap/Td Vaccine (1 - Tdap) 08/22/1983 Hepatitis B Screening 1990 Zoster Vaccine (1 of 2) 2022 Covid-19 Vaccine (3 - season) 2025 11/02/2020, 10/05/2020 Breast Cancer Screening-Mammogram 05/19/2025 05/19/2024, 04/29/2024, 04/29/2024, Additional history exists Influenza Vaccine (#1) 2025 Postp oned from 02/21/2025 (Patient declined, but will receive in the future) Depression Screening 04/05/2026 04/05/2025, 08/31/2024, 03/30/2024, Additional history exists Regular Well Visit/Exam 18-64 04/05/2026 04/05/2025, 03/30/2024, 01/30/2023, Additional history exists Colon Cancer Screening-DNA Stool 04/12/2028 04/12/2025, 01/13/2022 Pneumococcal vaccine <65 Aged Out No longer eligible based on patient's age to complete this topic Procedures Procedure Name Priority Date/Time Associated Diagnosis Comments STOOL DNA COLOGUARD Routine 04/12/2025 8:30 AM CDT Colon cancer screening SCREENING MAMMOGRAM BILATERAL W LELO Schedule Routine, Read Routine (OP Routine) 05/19/2024 10:16 AM DERRICK BUILDER Breast cancer screening by mammogram from Last 3 Months or Most Recently Relevant to Health Maintenance Results * Stool DNA - Cologuard (04/12/2025 8:30 AM CDT) Stool DNA - Cologuard Negative Negative [employer] (CLIA #:[id number]) Comment: The Cologuard (TM) test was performed on this specimen. NEGATIVE TEST RESULT. A negative Cologuard result [...] (Meli Petit al, N Engl J Med 2014;370(14):1286- 1297) The normal value (reference range) for this assay is negative. COLOGUARD RE-SCREENING RECOMMENDATION: Periodic colorectal cancer screening is an important part of preventive healthcare for asymptomatic individuals at average risk for colorectal cancer. Following a negative Cologuard result, the [place] [employer] and U.S. Multi-Society Task Force screening guidelines recommend a Cologuard re-screening interval of 3 years. References: [place] [employer] Guideline for Colorectal Cancer Screening: https://www.cancer.org/cancer/xipxu-nbgzab-itsrmb/ahstbmfkw-xeuhjnnhs-ipxmtgj/ac s-rec ommendations.html.; Riccardo DK, Jennifer KYLE, Neal AmbrizK, Colorectal Cancer Screening: Recommendations for Physicians and Patients from the U.S. Multi-Society Task Force on Colorectal Cancer Screening , Am J Gastroenterology 2017; 112:2495-3065. TEST DESCRIPTION: Composite algorithmic analysis of stool [...] (Meli Petit al, N Engl J Med 2014;370(14):4381-0675.) Cologuard may produce a false negative or false positive result (no colorectal cancer or precancerous polyp present at colonoscopy follow up). A negative Cologuard test result does not guarantee the absence of CRC or advanced adenoma (pre-cancer). The current Cologuard screening interval is every 3 years. ([place] [employer] and U.S. Multi-Society Task Force). Cologuard performance data in a 10,000 patient pivotal study using colonoscopy as the reference method can be accessed at the following location: www.[employer]/results. Additional description of the Cologuard test process, warnings and precautions can be found at www.cologuard.com. Stool 04/12/2025 8:30 AM CDT 04/14/2025 11:54 AM CDT Lisa READ LAB BODY FLUIDS AND STOOLS ORDERABLES Final Result [facility] (CLIA #:[id number]) [address] [place] [address] * Screening Mammogram Bilateral W Lelo (05/19/2024 10:16 AM DERRICK BUILDER) Anatomical Region Laterality Modality Breast Bilateral Mammography Lisa READ IMG MAMMO PROCEDURES Final Result from Last 3 Months or Most Recently Relevant to Health Maintenance Insurance [facility] [id number] [facility] [id number] Care Teams Gang Miner Relationship Specialty Start Date End Date Lisa Trujillo PA [address] [place] [address] PCP - General Internal Medicine 11/10/18
--- OUTSIDE RECORDS SUMMARY | 2025-05-17 14:56 | XMS_ITS | Encounter Summary ---
Author Organization [facility] Address [address] [place] [address] Care Team Providers Care Detective Private Eye Name Role Phone Lisa Trujillo Primary Care Provider +1- [phone] Encounter Details Date Type Department Care Team (Late st Contact Info) Description 04/19/2025 Results Follow-Up 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 Will plan to repeat routine screening in 3 years. documented in this encounter Plan of Treatment Not on file documented as of this encounter Visit Diagnoses Not on filedocumented in this encounter Care Teams Detective Private Eye Relationship Specialty Start Date End Date Lisa Trujilol PA [address] [facility] [address] [place] [address] PCP - General Internal Medicine 11/10/18 documented as of this encounter
--- OUTSIDE RECORDS SUMMARY | 2025-05-17 14:56 | XMS_ITS | Encounter Summary ---
Author Organization [facility] Care Team Providers Care Cut Off Sawyer Log Name Role Phone Lisa Trujillo Primary Care Provider +1- [phone] Encounter Details Date Type Department Care Team (Latest Contact Info) Description 05/13/2018 Orders Only [facility]INCONV Provider, MD Jacob [address] [place] [address] Social History Tobacco Use Types Packs/Day Years Used Date Smoking Tobacco: Never Assessed Comments Unknown Sex and Gender Information Value Date Recorded Sex Assigned at Not on file Legal Sex Female 11:48 AM AREA DEVELOPMENT 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 Historical Provider Final Res ult documented in this encounter Visit Diagnoses Not on filedocumented in this encounter Additional Health Concerns Infection Onset Date Last Indicated Resolved Time COVID: Suspected 06/29/2021 06/29/2021 06/30/2021 7:45 AM AREA DEVELOPMENT CONSULTANT COVID19 06/29/2021 06/29/2021 07/09/2021 3:06 AM AREA DEVELOPMENT CONSULTANT COVID: Recovered Comment:Added based on recent COVID infection. 07/09/2021 07/11/202111/06/2021 3:05 AM C DT documented as of this encounter Care Teams Cut Off Sawyer Log Relationship Specialty Start Date End Date Lisa Trujillo PA [address] [address] PCP - General Internal Medicine 11/10/18 documented as of this encounter
--- OUTSIDE RECORDS SUMMARY | 2025-05-17 14:56 | XMS_ITS | Continuity of Care Document ---
Author Organization [facility] [place] Address [address] [place] [address] Care Team Providers Care Medical Education Specialist Name Role Phone PATONATANAEL LEON Primary Care Provider [phone] Assessment No assessment recorded. Plan of Treatment Reminders Order Date Submit Date Provider Last Modified By Organization Details Last Modified Time Details Appointments MED CHECK 2024 11:30A Celestino ALLEN MD Not available Not available Not available Lab None recorded. Referral None recorded. Procedures None recorded. Surgeries None recorded. Imaging None recorded. Medication Orders Zepbound 10 mg/0.5 mL subcutane ous pen injector 2024 025 [id number], [address], [place], [id number], 03/01/2025 12:26:15 Patient TargetsNo targets recorded. Patient InstructionsNo instructions recorded. Reason for Referral None Reported. Problems Name Problem SNOMED Code Status Onset Date Resolution Date Notes Provider Name and Address Organization Details Recorded Time Speciali zed medical examinat ion Completed 201306/06/2021 Gynecolog ical Examinati on;Record ed Elsewhere : No Locati on: [facility] So urce: EHR Chron ic: N Practic e ID: 0001 Bill able Time: 01:45:00 PM Beverly escobedo [facility] 14:47:02 Screenin g for malignan t neoplasm of cervix Completed 201306/06/2021 Pap Smear;Pra ctice ID: 0001 Beverly Thayer [facility] 14:46:55 Mucous polyp of cervix [id number] Completed 201306/06/2021 Cervical polyp;Rec orded Elsewhere : No Locati on: [facility] So urce: EHR Chron ic: N Practic e ID: 0001 Bill able Time: 03:00:00 PM Beverly Thayer [facility] 14:46:50 Screenin g for malignan t neoplasm of rectum Completed 201406/06/2021 Encounter for screening for malignant neoplasm of rectum;Re corded Elsewhere : No Locati on: [facility] So urce: EHR Chron ic: N Practic e ID: 0001 Bill able Time: 08:45:00 AM Beverly [facility] 14:46:[address] Concept Completed 201406/06/2021 Encntr for general adult medical exam w/o abnormal findings; Recorded Elsewhere : No Locati on: [facility] So urce: EHR Chron ic: N Practic e ID: 0001 Bill able Time: 08:45:00 AM Beverly Thayer [facility] 14:46:59 Polyp of cervix [id number] Completed 201406/06/2021 Mucous polyp of cervix;Re corded Elsewhere : No Locati on: [facility] So urce: EHR Chron ic: N Practic e ID: 0001 Bill able Time: 08:45:00 AM Beverly [facility] 14:46:54 Menopaus e present [id number] Completed 201506/06/2021 Menopausa l and female climacter ic states;Re corded Elsewhere : No Locati on: [facility] So urce: EHR Chron ic: N Practic e ID: 0001 Bill able Time: 10:30:00 AM Beverly [facility] 14:46:48 Body mass index 25-29 - overweig [id number] Completed 201606/06/2021 Body mass index (BMI) 26.0-26.9 , adult;Rec orded Elsewhere : No Locati on: [facility] So urce: EHR Chron ic: N Practic e ID: 0001 Bill able Time: 01:00:00 PM Beverly escobedo [facility] 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 14:47:01 Evaluati on finding Completed 201706/06/2021 Oth abn and inconclus pasquale findings on dx imaging of breast;Re corded Elsewhere : No Locati on: [facility] So urce: EHR Chron ic: N Practic e ID: 0001 Bill able Time: 11:01:39 [facility] 14:46:46 Problem Notes None recorded. Procedures Surgical History Date Name Laterality Status Provider Name and Address Organization Details Recorded Time 05/18/20 24 Date of Last Mammogram completed Flora Vitale [facility] 07/29/2024 12:34:57 10/18/19 23 Date of Last Pap Smear completed Maria A Harris [facility] 08/14/2023 13:16:25 05/25/20 20 Endometrial Biopsy completed Afua Russ CNM [address], [place], [address], [facility] 05/25/2020 11:51:28 05/25/20 20 endometrial biopsy completed [facility] 05/25/2020 11:39:01 03/27/20 15 cervical polypectomy completed [facility] 08/14/2023 13:18:22 06/23/19 15 Breast Biopsy completed [facility] 08/14/2023 13:26:35 06/23/19 04 surgical procedure on eye proper using laser completed [facility] 08/14/2023 13:18:05 06/23/18 99 ligation of bilateral fallopian tubes completed [facility] 05/03/2020 17:05:07 excision of basal cell carcinoma completed [facility] 05/03/2020 17:03:55 Imaging Results None recorded. Procedure Notes None recorded. Medical Equipment None Reported. Allergies No known drug allergies Medications Name Sig Start Date Stop Date Status Note LastModified by Organization Details LastModified Time id now influenza a & b 2 test kit TEST DIRECTED TODAY 10/17 completed Not Available Not Available Not Available Prescript ion - Prior Authoriza tion Request active Not Available Not Available Not Available fluoroura [...] Prescrib ed Elsewher e: Yes Loca tion: [facility] M odify By: [email or web address] z Nate godoy DateTime [...] Prescrib ed Elio e: No Locat ion: [facility] odify By: arcelia landrum DateTime : [...] injector INJECT 10 MG UNDER THE SKIN ONE DAY A WEEK active Not Available Not Available No t Available Zepbound 12.5 mg/0.5 mL subcutane ous pen injector Inject 12.5 mg by subcutan eous route. active Not Available Not Available No t Available Zepbound 7.5 mg/0.5 mL subcutane ous pen injector INJECT 7.5 MG EVERY WEEK UNDER THE SKIN 04/07 completed Not Available Not Available Not Available Vitals Date Recorded Body height Body mass index (BMI) Body weight Systolic And Diastolic Provider Name and Address Organization Details Last Updated DateTime 03/01/2025 157.48 cm 25.8 kg/m2 94204.52 g 107/75 mm[Hg] Jodie Gibbs [facility] 03/01/2025 11:45:28 Social History Question Answer Notes LastModified by Organizat ion Details LastModified Time Tobacco Smoking Status Never Smoker Melanie escobedo, [facility] 02/04/2023 11:17:23 Are You Blind Or Do You Have Difficulty Seeing? No [email or web address] Information n ot available 08/14/2023 In The [...] Do You Have Serious Difficulty Hearing? No [email or web address] Information not available 08/14/2023 What Type Of Diet Are You Following? REGULAR [email or web address] Information n ot available 08/14/2023 What Was The Date Of Your Most Recent Tobacco Screening? 08/14/2023 [email or web address] Information not available 08/14/2023 Do You Use Your Seat Belt Or Car Seat Routinely? Yes Information not available 08/14/2023 Do You Have Smoke And Carbon Monoxide Detectors In Your Home? Yes [email or web address] Information not available 08/14/2023 How Much Tobacco Do You Smoke? No [email or web address] Information not available 05/03/2020 Do You Use Sunscreen Routinely? Yes [email or web address] Information not available 08/14/2023 Do You Have Difficulty Walking Or Climbing Stairs? No [email or web address] Information not available 08/14/2023 Sex: Unknown Functional Status Question Answer Note LastModified by Organizat ion Details LastModified Time What is your level of alcohol consumption? Occasional [email or web address] Information not available 05/03/2020 Do you or have you ever used smokeless tobacco? Never used smokeless tobacco Information not available 02/04/2023 Are you able to walk independently without assistance or assistive devices? YESWOREST [email or web address] Information not available 08/14/2023 Are you able to care for yourself independently? Yes [email or web address] Information not available 08/14/2023 Do you have difficulty dressing, bathing, grooming, or toileting? No [email or web address] Information not available 08/14/2023 Do you or have you ever used e-cigarettes or vape? Never used electronic cigarettes Information not available 02/04/2023 What is your exercise level? Occasional [email or web address] Information not available 05/03/2020 Mental Status Question Answer Note LastModified by Organization D etails LastModified Time Do you feel stressed (tense, restless, nervous, or anxious, or unable to sleep at night)? [id number] [email or web address] Information not available 08/14/2023 Family History Relationship Description Onset Age of this Age Resolved Age Notes LastModified by Organization Details LastModified Time Mother Malignant neoplasm of breast [email or web address] Not available 2022 11:23:38 Father Diabetes mellitus [email or web address] Not available 2022 11:23:38 Medical History Condition Response Other Y Blood Transfusion N Dermatologic Disorders N Gestational Diabetes N Anxiety Disorder N Autoimmune disease N Arthritis N Polyps Y Infertility N Acid Reflux (GERD) N Cancer Y Varicosities N Stroke N Neurologic/Epilepsy Y Fibromyalgia N Headaches N Kidney Disease N Heart Problems Y Kidney or Bladder Problems N Eating Disorder N Art (IVF or FET) N Hepatitis/Liver Disease N No Past Medical History N Urinary Tract Infection N Asthma N Trauma/Violence N Thrombophilias N Allergies (Food, seasonal, environmental ) N Breast Cancer N Drug/Latex Allergies/Reactions N Lung Disease N Defects or Inherited Disease Y Breast Problem Y Hematologic disorders N Anesthesia Complications N History of STI N Deep Vein Thrombosis N Polycystic ovary syndrome N History of abnormal pap N Endometriosis N High Cholesterol N Thyroid Problems N GI Problems N Anemia N Psychiatric Illness N Ovarian Cancer N Diabetes N Pulmonary (TB, Asthma) N Eczema N Abuse/Domestic Violence N Depression/ depression N Heart Disease N Pre-Eclampsia N Hypertension N Osteoporosis N Gynecological History Statement/Question Response Abnormal Pap [...] Diagnosis SNOMED-CT Code Diagnosis ICD10 Code Diagnosis IMO Codes Diagnosis Note [id number] Johnson Allen MD [place] [address] [address] 03/01/2025 11:35:53 03/03/2025 08:59:11 Obesity 840461333 E66.9 This patient is a 54-year-ol d female who presents for weight management follow-up. She is on 1 GLP 1 agonist semaglutid e. discussed side effects, discussed current weight loss rate. Would like to try other GLP 1 agonist but insurance declined. we will again try getting the other GLP 1. Patient's insurance has declined the 12.5 mg tirzepatid e. She was approved for the 10 mg. She may want to try the 10 mg again. We discussed diet and exercise again in detail. I spent more than 20 minutes on the patient's care in total. Health Concerns Section Related Observation LastModified by Organization Detai ls LastModified Time None Recorded Concern Status LastModified by Organization Details LastModified Time None Recorded Payers Encounter Date Sequence Insurance Name Policy Number Policy Macias Covered Member ID Macias Member ID Guarantor Name 03/01/2025 1 [facility] [employer] Maria A Natalia [id number] Maria A Natalia Notes Date Note Type Note Provider Name and Address Organization Details Recorded Time 03/01/2025 text/html This patient is a 54-year-old female who presents for weight management follow-up. She is on 1 GLP 1 agonist semaglutide. discussed side effects, discussed current weight loss rate. Would like to try other GLP 1 agonist but insurance declined. we will again try getting the other GLP 1. Patient's insurance has declined the 12.5 mg tirzepatide. She was approved for the 10 mg. She may want to try the 10 mg again. We discussed diet and exercise again in detail. I spent more than 20 minutes on the patient's care in total. Johnson Allen MD [address], [place], [address], [facility] 03/02/2025 18:48:39 OBGyn Episode No OBEpisode recorded.
--- OUTSIDE RECORDS SUMMARY | 2025-05-17 14:56 | XMS_ITS | Encounter Summary ---
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 Historical Provider Final Res ult documented in this encounter Visit Diagnoses Not on filedocumented in this encounter Additional Health Concerns Infection Onset Date Last Indicated Resolved Time COVID: Suspected 06/29/2021 06/29/2021 06/30/2021 7:45 AM WELL SURVEYING ENGINEER COVID19 06/29/2021 06/29/2021 07/09/2021 3:06 AM WELL SURVEYING ENGINEER COVID: Recovered Comment:Added based on recent COVID infection. 07/09/2021 07/11/202111/06/2021 3:05 AM C DT documented as of this encounter Care Teams Child Care Associate Relationship Specialty Start Date End Date Lisa Trujillo PA [address] [address] PCP - General Internal Medicine 11/10/18 documented as of this encounter
--- OUTSIDE RECORDS SUMMARY | 2025-05-17 14:56 | XMS_ITS | Encounter Summary ---
Author Organization 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 Historical Provider Final Res ult documented in this encounter Visit Diagnoses Not on filedocumented in this encounter Additional Health Concerns Infection Onset Date Last Indicated Resolved Time COVID: Suspected 06/29/2021 06/29/2021 06/30/2021 7:45 AM CLINICAL ATHLETIC INSTRUCTOR COVID19 06/29/2021 06/29/2021 07/09/2021 3:06 AM CLINICAL ATHLETIC INSTRUCTOR COVID: Recovered Comment:Added based on recent COVID infection. 07/09/2021 07/11/202111/06/2021 3:05 AM C DT documented as of this encounter Care Teams Oil Field Equipment Mechanic Supervisor Relationship Specialty Start Date End Date Lisa Trujillo PA [address] [address] PCP - General Internal Medicine 11/10/18 documented as of this encounter
--- OUTSIDE RECORDS SUMMARY | 2025-05-17 14:56 | XMS_ITS | Encounter Summary ---
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 [address] [place] [address] PCP - General Internal Medicine 11/10/18 documented as of this encounter
--- OUTSIDE RECORDS SUMMARY | 2025-05-17 14:56 | XMS_ITS | Data Portability ---
Author Organization [facility] Address [address] [place] [address] [place] [address] Care Team Providers Care Hog Grader Name Role Phone NATANAEL LONG Primary Care Provider Assessment Encounter Date Assessment Date Assessment LastModified by Organization Details LastModified Time 04/20/2024 04/20/2024 Annual gynecological exam performed. Patient will come back in a year unless there are new symptoms. [email or web address] Not available 04/01/2024 12:42:26 Plan of Treatment Reminders Order Date Submit Date Provider Last Modified By Organization Details Last Modified Time Details Appointments MED CHECK 2024 11:30A Celestino PRATHER MD Not available Not available Not available Lab None recorded. Referral None recorded. Procedures None recorded. Surgeries None recorded. Imaging MAMMO, screening , digital, bilateral 2023 024 [facility], [address], [place], [address], 10/24/2024 05:01:36 Medication Orders Zepbound 10 mg/0.5 mL subcutane ous pen injector 2024 025 [facility] #[id number], [address], [place], [place], [id number], 03/01/2025 12:26:15 Zepbound 10 mg/0.5 mL subcutane ous pen injector 2024 025 [id number], [address], [place], [place], [id number], 11/23/2024 12:54:54 Patient TargetsNo targets recorded. Patient InstructionsNo instructions recorded. Reason for Referral None Reported. Results Created Date Observation Date Name Description Value Unit Range Abnormal Flag Note LastModifiedBy Organization Detail LastModifiedTime 04/29/20 24 04/29/2024 MAMMO , scree guillermo, bilat eral No observ ation record ed. [facility] [address], [place], [address], 05/04/2024 10:21:58 04/29/2004/29/2024 MAMMO , scree guillermo, bilat eral No observ ation record ed. [address] [facility] [address], [place], [address], 05/04/2024 10:22:22 05/18/20 24 05/18/2024 MAMMO , diagn ostic , digit al, unila teral No observ ation record ed. [facility] [address], [place], [address], 05/18/2024 21:45:40 Result Notes None recorded. Problems Name Problem SNOMED Code Status Onset Date Resolution Date Notes Provider Name and Address Organization Details Recorded Time Speciali zed medical examinat ion Completed 201306/06/2021 Gynecolog ical Examinati on;Record ed Elsewhere : No Locati on: [facility] So urce: EHR Chron ic: N Practic e ID: 0001 Bill able Time: 01:45:00 PM Beverly escobedo [facility] 14:47:02 Screenin g for malignan t neoplasm of cervix Completed 201306/06/2021 Pap Smear;Pra ctice ID: 0001 Beverly escobedo [facility] 14:46:55 Mucous polyp of cervix [id number] Completed 201306/06/2021 Cervical polyp;Rec orded Elsewhere : No Locati on: [facility] So urce: EHR Chron ic: N Practic e ID: 0001 Bill able Time: 03:00:00 PM Beverly Thayer [facility] 14:46:50 Screenin g for malignan t neoplasm of rectum Completed 201406/06/2021 Encounter for screening for malignant neoplasm of rectum;Re corded Elsewhere : No Locati on: [facility] So urce: EHR Chron ic: N Practic e ID: 0001 Bill able Time: 08:45:00 AM Beverly Thayer [facility] 14:46:[address] Concept Completed 201406/06/2021 Encntr for general adult medical exam w/o abnormal findings; Recorded Elsewhere : No Locati on: [facility] So urce: EHR Chron ic: N Practic e ID: 0001 Bill able Time: 08:45:00 AM Beverly Thayer [facility] 14:46:59 Polyp of cervix [id number] Completed 201406/06/2021 Mucous polyp of cervix;Re corded Elsewhere : No Locati on: [facility] So urce: EHR Chron ic: N Practic e ID: 0001 Bill able Time: 08:45:00 AM Beverly Thayer [facility] 14:46:54 Menopaus e present [id number] Completed 201506/06/2021 Menopausa l and female climacter ic states;Re corded Elsewhere : No Locati on: [facility] So urce: EHR Chron ic: N Practic e ID: 0001 Bill able Time: 10:30:00 AM Beverly Thayer [facility] 14:46:48 Body mass index 25-29 - overweig ht [id number] Completed 201606/06/2021 Body mass index (BMI) 26.0-26.9 , adult;Rec orded Elsewhere : No Locati on: [facility] So urce: EHR Chron ic: N Practic e ID: 0001 Bill able Time: 01:00:00 PM Beverly escobedo [facility] 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 14:47:01 Evaluati on finding Completed 201706/06/2021 Oth abn and inconclus pasquale findings on dx imaging of breast;Re corded Elsewhere : No Locati on: [facility] So urce: EHR Chron ic: N Practic e ID: 0001 Bill able Time: 11:01:39 AM Beverly escobedo [facility] 14:46:46 Problem Notes None recorded. Procedures Surgical History Date Name Laterality Status Provider Name and Address Organization Details Recorded Time 05/18/20 24 Date of Last Mammogram completed Flora Vitale [facility] 07/29/2024 12:34:57 10/18/19 23 Date of Last Pap Smear completed Maria A Harris [facility] 08/14/2023 13:16:25 05/25/20 20 Endometrial Biopsy completed Afua Russ CNM [address], [place], [address], [facility] 05/25/2020 11:51:28 05/25/20 20 endometrial biopsy completed Maria A Harris [facility] 05/25/2020 11:39:01 03/27/20 15 cervical polypectomy completed Maria A Harris [facility] 08/14/2023 13:18:22 06/23/19 15 Breast Biopsy completed [facility] 08/14/2023 13:26:35 06/23/19 04 surgical procedure on eye proper using laser completed [facility] 08/14/2023 13:18:05 06/23/18 99 ligation of bilateral fallopian tubes completed [facility] 05/03/2020 17:05:07 excision of basal cell carcinoma completed [facility] 05/03/2020 17:03:55 Imaging Results None recorded. Procedure Notes None recorded. Medical Equipment None Reported. Allergies No known drug allergies Medications Name Sig Start Date Stop Date Status Note LastModified by Organization Details LastModified Time Prescript ion - Prior Authoriza tion Request active Not Available Not Available Not Available id now influenza a & b 2 [...] Prescrib ed Elsewher e: Yes Loca tion: [facility] M odify By: [email or web address] z Encoun ter [...] Not Available atomoxeti ne 80 mg capsule 08/15 /2023 completed Not Available Not Available Not Available [...] day at bedtime 06/06 completed Prescrib ed Elsew e: No Locat ion: [facility] odify By: arcelia Pacheco ncounter DateTime : 05/06/20 10:30:00 AM Not Available [...] Updated DateTime 07/29/2024 157.48 cm 25.4 kg/m2 51024.34 g 108/77 mm[Hg] [facility] 07/29/2024 12:34:27 Date Recorded Body height Body mass index (BMI) Body weight Systolic And Diastolic Provider Name and Address Organization Details Last Updated DateTime 11/23/2024 157.48 cm 25.1 kg/m2 78801.15 g 101/71 mm[Hg] Flora [facility] 11/23/2024 12:54:32 Date Recorded Body height Body mass index (BMI) Body weight Systolic And Diastolic Provider Name and Address Organization Details Last Updated DateTime 03/01/2025 157.48 cm 25.8 kg/m2 04966.52 g 107/75 mm[Hg] Jodie Gibbs [facility] 03/01/2025 11:45:28 Date Recorded Body height Body mass index (BMI) Body weight Systolic And Diastolic Provider Name and Address Organization Details Last Updated DateTime 04/20/2024 157.48 cm 25.9 kg/m2 12019.68 g 101/71 mm[Hg] Amaya Cotton [facility] 04/20/2024 14:32:51 Date Recorded Body height Body mass index (BMI) Body weight Systolic And Diastolic Provider Name and Address Organization Details Last Updated DateTime 04/27/2024 157.48 cm 26 kg/m2 93016.12 g 108/75 mm[Hg] Flora Vitale [facility] 04/27/2024 10:33:48 Social History Question Answer Notes LastModified by Organizat ion Details LastModified Time Tobacco Smoking Status Never Smoker Melanie Jang fanny, [facility] 02/04/2023 11:17:23 Are You Blind Or Do You Have Difficulty Seeing? No [email or web address] Information n ot available 08/14/2023 In The [...] Do You Have Serious Difficulty Hearing? No [email or web address] Information not available 08/14/2023 What Type Of Diet Are You Following? REGULAR [email or web address] Information n ot available 08/14/2023 What Was The Date Of Your Most Recent Tobacco Screening? 08/14/2023 [email or web address] Information not available 08/14/2023 Do You Use Your Seat Belt Or Car Seat Routinely? Yes [email or web address] Information not available 08/14/2023 Do You Have Smoke And Carbon Monoxide Detectors In Your Home? Yes [email or web address] Information not available 08/14/2023 How Much Tobacco Do You Smoke? No [email or web address] Information not available 05/03/2020 Do You Use Sunscreen Routinely? Yes [email or web address] Information not available 08/14/2023 Do You Have Difficulty Walking Or Climbing Stairs? No [email or web address] Information not available 08/14/2023 Sex: Unknown Functional Status Question Answer Note LastModified by Organizat ion Details LastModified Time What is your level of alcohol consumption? Occasional [email or web address] Information not available 05/03/2020 Do you or have you ever used smokeless tobacco? Never used smokeless tobacco Information not available 02/04/2023 Are you able to walk independently without assistance or assistive devices? [email or web address] Information not available 08/14/2023 Are you able to care for yourself independently? Yes [email or web address] Information not available 08/14/2023 Do you have difficulty dressing, bathing, grooming, or toileting? No [email or web address] Information not available 08/14/2023 Do you or have you ever used e-cigarettes or vape? Never used electronic cigarettes Information not available 02/04/2023 What is your exercise level? Occasional [email or web address] Information not available 05/03/2020 Mental Status Question Answer Note LastModified by Organization D etails LastModified Time Do you feel stressed (tense, restless, nervous, or anxious, or unable to sleep at night)? [id number] [email or web address] Information not available 08/14/2023 Family History Relationship [...] ICD10 Code Diagnosis IMO Codes Diagnosis Note [id number] Corrina Cagle [facility] [address] [address] 04/27/2020 10:41:33 04/27/2020 11:30:14 Gynecologic examination 66321681 Z01.419 Suggested Calcium with Vitamin D 1200-1500m g daily. Patient advised to get an annual flu shot in the fall and she could obtain at [facility] or [facility] [...] updated Mammo ordered No issues or concerns [id number] Afua Russ CNM [facility] [address],[facility] [place] [address] 05/25/2020 11:24:59 05/25/2020 12:47:05 Specimen with abnormal presence of endometrial cells [id number] R87.619 [id number] Corrina Cagle [facility] [address] [address] 06/06/2021 15:52:33 06/06/2021 16:39:33 Gynecologic examination 06926585 Z01.419 Suggested Calcium with Vitamin D 1200-1500m g daily. Patient advised to get an annual flu shot in the fall and she could obtain at [facility] or [facility] care clinic. Also to obtain TDap vaccinatio [...] completed in the past & was negative. [id number] Corrina Cagle , [facility] [address] [address] 10/17/2022 11:45:53 10/17/2022 14:15:22 Gynecologic examination 85355009 Z01.419 Z11.51 Suggested Calcium with Vitamin D 1200-1500m g daily. Patient advised to get an annual flu shot in the fall and she could obtain at [facility] or [facility] care clinic. Also to obtain TDap vaccinatio [...] Routine Labs PCPMammo ordered Screening mammography 24 802216 Z12.31 [id number] Johnson Prather MD [facility] [address] [address] 02/04/2023 11:16:20 02/04/2023 12:54:20 Obesity 456314081 E66.9 This patient is a 52-year-ol d [...] Given precaution s, given dosing instructio ns [id number] Johnson Prather MD [facility] [address] [address] 04/08/2023 11:46:30 04/08/2023 12:40:02 Obesity 901143208 E66.9 This patient is a 52-year-ol d [...] ce. More than 50% was counseling . [id number] Johnson Prather MD [facility] [address],[facility] [place] [address] 06/10/2023 12:27:40 06/10/2023 13:25:49 Obesity 734063693 E66.9 This patient is a 52-year-ol d [...] ce. More than 50% was counseling . [id number] Johnson Prather MD [facility] [address],[facility] [place] [address] 08/14/2023 12:21:03 08/14/2023 13:24:54 Obesity 539885378 E66.9 This patient is a 52-year-ol d [...] is very mindful of her diet. Obese 130219244 E66.9 [id number] Johnson Prather MD [facility] [address],[place] [address] 10/14/2023 09:53:33 10/15/2023 04:50:06 Obesity 500925556 E66.9 This patient is a 52-year-ol d [...] She is very mindful of her diet. [id number] Johnson Prather MD [facility] [address],[place] [address] 01/15/2024 10:12:30 01/15/2024 11:31:09 Obesity 015557738 E66.9 This patient is a 52-year-ol d [...] She is very mindful of her diet. [id number] Johnson Prather MD [facility] [address],[facility] [place] [address] 04/20/2024 14:26:01 04/20/2024 15:15:31 Gynecologic examination 54813883 Z01.419 Annual gynecologi samantha exam performed. Patient [...] STI testing - declined Screening mammography 24 016712 Z12.31 Pt to schedule; order given. [id number] Johnson Prather MD [facility] [address],[place] [address] 04/27/2024 10:26:05 04/27/2024 11:11:46 Obesity 012574696 E66.9 This patient is a 52-year-ol d [...] patient is taking 10 mg oif zepbound [id number] Johnson Prather MD [facility] [address],[place] [address] 07/29/2024 12:16:38 07/29/2024 17:04:40 Obesity 475260879 E66.9 This patient is a 52-year-ol d [...] patient is taking 10 mg oif zepbound [id number] Johnson Prather MD [facility] [address] [address] 11/23/2024 12:29:42 11/29/2024 16:49:56 Body mass index 30+ - obesity 687952219 E66.9 9714216 This patient is a 52-year-ol d female [...] patient is taking 10 mg oif zepbound [id number] Johnson Prather MD [facility] [address] [address] 03/01/2025 11:35:53 03/03/2025 08:59:11 Obesity 570738195 E66.9 This patient is a 54-year-ol d [...] Member ID Macias Member ID Guarantor Name 03/08/2025 1 [facility] [employer] Maria A Fisher [id number] OI Maria A Fisher 02/04/2023 1 [facility]VIS[facility] 1 [facility] Maria A Fisher [id number] Maria A Fisher 04/26/2024 1 [facility] Maria A Fisher [id number] OI Maria A Fisher Notes Date Note Type Note Provider Name and Address Organization Details Recorded Time 4 text/html Annual GYNReported by PatientHistoryFor history, patient reportsno gynecologic complaints.Genitourina ry symptomsFor menstrual cycle, patient reportsnormal menses. For urinary symptoms, patient reportsno hematuriaandno incontinence. For vulva, patient reportsno genital lesion. For vagina, patient reportsnormal vaginal discharge.Breast symptomsFor breast, patient reportsno breast pain,no breast lump, andno nipple discharge.Contraceptio nFor current contraception, patient reportstubal ligation.Endocrine symptomsFor sexual complaints, patient reportsno sexual complaints,no pain during intercourse, andnormal libido. For menopausal symptoms, patient reportsno menopausal symptomsandnormal vaginal lubrication.Psychologi samantha symptomsFor psychological symptoms, patient reportsno depression,no anxiety, andno pmdd.Preventative measuresFor preventive measures, patient reportsencourage self breast examination,encourage regular exercise,encourage no tobacco use,encourage regular mammograms starting age 40,needs to schedule mammogram, andup to date on colonoscopy screening. Patient presents for annual well woman exam. Patient denies concerns today. MORA HAYES NP [address], [place], [address], [facility] 04/20/2024 15:01:44 4 text/html This patient is a 52-year-old female [...] zepbound Johnson Prather MD [address], [place], [address], [facility] 04/27/2024 11:07:15 5 text/html This patient is a 52-year-old female [...] is taking 10 mg oif zepbound Johnson Pratehr MD [address], [place], [address], [facility] 07/29/2024 16:59:33 5 text/html This patient is a 52-year-old female [...] zepbound Johnson Prather MD [address], [place], [address], [facility] 12/19/2024 22:40:06 5 text/html This patient is a 54-year-old female [...] on the patient's care in total. Johnson Prather MD [address], [place], [address], [facility] 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
== END 2025-05-17 13:19 | disposition home or self-care (01) ==
PROVIDERS: PCP Physician Assistant; Visit Provider Physician Assistant
DX: Z12.31 Encounter for screening mammogram for malignant neoplasm of breast (principal); R92.8 Other abnormal and inconclusive findings on diagnostic imaging of breast
CPT/HCPCS: 77063; 77067